=== PATIENT | female | born 1955 | race Hispanic/Latino ===

== ENCOUNTER 2017-01-18 16:11 | Emergency (ER) | payer OTHER ==
[2017-01-18 16:11] VITALS: BMI 19.5
[2017-01-18 16:31] VITALS: BP 119/77; PULSE 94; RESP 18; TEMP 98; O2SAT 98
--- NOTE | 2017-01-18 17:38 | ED PDOC ---
HPI: Abdomen Time Seen by Provider: 01/18/17 16:38 Chief Complaint (Nursing): Abdominal Pain Chief Complaint (Provider): Abdominal Pain History Per: Patient History/Exam Limitations: no limitations Additional Complaint(s): Angelita Fernandes is a 61 y/o female with a past medical history of colon cancer, anxiety, and smoking, who presents to the ED for evaluation to check a portacath on the right side of her chest to get chemotherapy for colon cancer. Patient reports her last infusion was yesterday. States she feels part of her catheter is missing when she looks to her neck area. Patient also states a chief complaint of a gassy pain due to constipation and attributes the increase in gas to changing from her gas-x and pepcid to another over the counter medication. Denies any associated symptoms including trauma, sudden pain or shortness of breath. No nausea or vomiting. Past Medical History Reviewed: Historical Data, Nursing Documentation, Vital Signs Vital Signs: Last Vital Signs Temp 98 F 01/18/17 16:27 Pulse 94 H 01/18/17 16:27 Resp 18 01/18/17 16:27 BP 119/77 01/18/17 16:27 Pulse Ox 98 01/18/17 18:04 - Medical History PMH: Anxiety, Asthma, Bronchitis, COPD, Emphysema, Hiatal Hernia, Hypothyroidism Denies: Chronic Kidney Disease - Surgical History Surgical History: No Surg Hx - Family History Family History: States: Stroke (Father - 60 yo) - Social History Current smoker - smoking cessation education provided: Yes Ex-Smoker (has not smoked in the last 12 months): No - Home Medications Home Medications: Ambulatory Orders Medication Instructions Recorded Albuterol HFA [Ventolin HFA 90 1 puff IH Q4 PRN #1 unit 02/28/15 mcg/actuation (8 g)] ALPRAZolam [Xanax] 2 mg PO DAILY 04/13/15 Levothyroxine [Synthroid] 88 mcg PO DAILY 04/13/15 Propranolol [Inderal] 10 mg PO DAILY 04/13/15 Nebulizer [Aeroneb Go Nebulizer] 1 each MC Q4 PRN #1 each 03/20/16 Maprotiline HCl [Maprotiline HCl] 25 mg PO DAILY 08/28/16 Acetaminophen [Tylenol 325mg tab] 325 mg PO BID 09/25/16 Famotidine [Pepcid] 20 mg PO DAILY PRN 09/25/16 - Allergies Allergies/Adverse Reactions: Allergies Allergy/AdvReac Type Severity Reaction Status Date / Time Sulfa (Sulfonamide Allergy RASH Verified 01/18/17 16:27 Antibiotics) Review of Systems ROS Statement: Except As Marked, All Systems Reviewed And Found Negative Respiratory: Negative for: Shortness of Breath Gastrointestinal: Positive for: Abdominal Pain, Constipation (Gassy pain due to constipation) Physical Exam - Reviewed Nursing Documentation Reviewed: Yes Vital Signs Reviewed: Yes - Physical Exam Appears: Positive for: Well, Non-toxic, No Acute Distress Head Exam: Positive for: ATRAUMATIC, NORMAL INSPECTION, NORMOCEPHALIC Skin: Positive for: Normal Color, Warm, Dry Eye Exam: Positive for: Normal appearance, EOMI, PERRL ENT: Positive for: Normal ENT Inspection, Other (Dry mucous membranes) Neck: Positive for: Normal, Painless ROM, Supple Cardiovascular/Chest: Positive for: Regular Rate, Rhythm, Chest Non Tender, Other (Portacath on the right chest wall below the right clavicle with palpable catheter tracking deep into the subclavicular area.). Negative for: Murmur, Tachycardia Respiratory: Positive for: Normal Breath Sounds. Negative for: Wheezing, Respiratory Distress Gastrointestinal/Abdominal: Positive for: Normal Exam, Soft. Negative for: Tenderness, Guarding, Rebound Back: Positive for: Normal Inspection Rectal: Positive for: Deferred Extremity: Positive for: Normal ROM Lymphatic: Positive for: Deferred Neurologic/Psych: Positive for: Alert, Oriented, Other (Tired appearing) - ECG O2 Sat by Pulse Oximetry: 98 (RA) Pulse Ox Interpretation: Normal Medical Decision Making Medical Decision Making: Time : 1638: Initial Impression: Portacath in place; Constipation Initial Plan: * Chest one view RAD Stat * KUB (Abdomen (flat plate) I view RAD Stat * Neck soft tissue RAD Stat * Re-Eval * Pt refused to have chest and abdominal xray. Informed that we are unable to see the catheter going into the heart, but that the neck xray show it is going in the right direction. Pt comfortable with this workup and eager to go home. Scribe Attestation: Documented by Zach Smith acting as a scribe for Pina Zimmerman MD. Provider Scribe Attestation: All medical record entries made by the Dannyibe were at my direction and personally dictated by me. I have reviewed the chart and agree that the record accurately reflects my personal performance of the history, physical exam, medical decision making, and the department course for this patient. I have also personally directed, reviewed, and agree with the discharge instructions and disposition. Disposition - Clinical Impression Clinical Impression: Constipation, Port-a-cath in place - Disposition Referrals: [facility] [Outside] - 01/21/17 Disposition: Routine/Home Disposition Time: 18:00 Condition: STABLE Additional Instructions: CONTINUE ALL YOUR PRESCRIBED MEDICATIONS USUAL GO BACK TO USING GAS X AND PEPCID FOR GAS FOLLOW UP WITH CLINIC SCHEDULED Instructions: Constipation (ED), Perma-cath Placement (GEN)
--- NOTE | 2017-01-18 18:49 | RAD ---
Neck soft tissue radiographs Comparison: Chest x-ray performed 03/28/16 Indication: Check wenceslao cath Findings: Incomplete visualization of a right-sided IJ approach central venous catheter. Soft tissues appear unremarkable. Evidence of atherosclerotic calcification involving the included aortic knob. Osseous demineralization. Multilevel degenerative changes of the cervical spine. Straightening of the normal cervical lordosis may be related to muscle spasm or positioning. Impression: Incomplete visualization of right-sided IJ approach central venous catheter. Recommend chest x-ray for further evaluation if indicated. Additional findings as above. Case discussed with Dr. Zimmerman on 01/18/17 at 6:46 p.m..
== END 2017-01-18 19:05 | disposition home or self-care (01) ==
LOC: H.ER 16:11
DX: Z45.2 Encounter for adjustment and management of vascular access device (principal); C18.9 Malignant neoplasm of colon, unspecified

== ENCOUNTER 2017-03-15 12:32 | Emergency (ER) | payer OTHER, SELFPAY ==
[2017-03-15 12:33] VITALS: BMI 18.8
[2017-03-15 12:41] VITALS: PULSE 71; RESP 17; TEMP 97.7; O2SAT 100
--- NOTE | 2017-03-15 13:15 | ED PDOC ---
HPI: CCC, URI, Sore Throat Time Seen by Provider: 03/15/17 12:42 Chief Complaint (Nursing): ENT Problem Chief Complaint (Provider): Sore throat History Per: Patient History/Exam Limitations: no limitations, clinical condition Onset/Duration Of Symptoms: Days Current Symptoms Are (Timing): Still Present Location Of Pain: Throat Sick Contacts (Context): None Associated Symptoms: Sore Throat. denies: Fever, Chills Additional History Per: Patient Additional Complaint(s): The patient is a 61yo female, hx of cancer, presents to the ED for evaluation of sore throat present for he past couple days. Patient reports she took Tylenol for her pain with no relief. She denies any associated cough, congestion or fever. She currently offers no additional medical complaints. Pt reports that she was at [facility] lab today for her routine bloodwork needed before her next chemo treatment. Pt was advised by RN to go to ER for sore throat eval. Pt see's our clinic; however, was unable to get an appointment for today. Oncologist: Dr. Wright PCP: [facility] Past Medical History Reviewed: Historical Data, Nursing Documentation, Vital Signs Vital Signs: Last Vital Signs Temp 97.7 F 03/15/17 12:38 Pulse 71 03/15/17 12:38 Resp 17 03/15/17 12:38 BP 127/95 H 03/15/17 12:38 Pulse Ox 100 03/15/17 13:17 - Medical History PMH: Anxiety, Asthma, Bronchitis, COPD, Emphysema, Hiatal Hernia, Hypothyroidism , Malignancy Denies: Chronic Kidney Disease - Family History Family History: States: Stroke (Father - 60 yo) - Social History Current smoker - smoking cessation education provided: Yes SMOKER/PACKS PER DAY:: 1 - Home Medications Home Medications: Ambulatory Orders Medication Instructions Recorded Albuterol HFA [Ventolin HFA 90 1 puff IH Q4 PRN #1 unit 02/28/15 mcg/actuation (8 g)] ALPRAZolam [Xanax] 2 mg PO DAILY 04/13/15 Levothyroxine [Synthroid] 88 mcg PO DAILY 04/13/15 Propranolol [Inderal] 10 mg PO DAILY 04/13/15 Nebulizer [Aeroneb Go Nebulizer] 1 each MC Q4 PRN #1 each 03/20/16 Maprotiline HCl [Maprotiline HCl] 25 mg PO DAILY 08/28/16 Acetaminophen [Tylenol 325mg tab] 325 mg PO BID 09/25/16 Famotidine [Pepcid] 20 mg PO DAILY PRN 09/25/16 Guaifenesin/Pseudoephedrne HCl 1 tab PO DAILY PRN #30 ter 03/15/17 [Mucinex D 600 mg-60 mg] - Allergies Allergies/Adverse Reactions: Allergies Allergy/AdvReac Type Severity Reaction Status Date / Time Sulfa (Sulfonamide Allergy RASH Verified 03/15/17 12:38 Antibiotics) Review of Systems ROS Statement: Except As Marked, All Systems Reviewed And Found Negative Constitutional: Negative for: Fever, Chills ENT: Positive for: Throat Pain Physical Exam - Reviewed Nursing Documentation Reviewed: Yes Vital Signs Reviewed: Yes - Physical Exam Appears: Positive for: Well, Non-toxic, No Acute Distress Head Exam: Positive for: ATRAUMATIC, NORMAL INSPECTION, NORMOCEPHALIC Skin: Positive for: Normal Color, Warm, DRY Eye Exam: Positive for: EOMI, Normal appearance, PERRL ENT: Positive for: TM Is/Are (nroam), Tonsillar Swelling Cardiovascular/Chest: Positive for: Regular Rate, Rhythm Respiratory: Positive for: Normal Breath Sounds. Negative for: Respiratory Distress Neurologic/Psych: Positive for: Alert, Oriented - ECG O2 Sat by Pulse Oximetry: 100 (RA) Pulse Ox Interpretation: Normal Medical Decision Making Medical Decision Making: Time: 1242 Impression: Sore throat, r/o strep Plan: -- Rapid strep -- Patient denies pain medication -- Reassess labs reviewed from draw earlier today at [facility] WBC 5.9, WNL Scribe Attestation: Documented by Florida Mccollum acting as a scribe for JORGITO Aaron Provider Attestation: All medical record entries made by the Scribe were at my direction and personally dictated by me. I have reviewed the chart and agree that the record accurately reflects my personal performance of the history, physical exam, medical decision making, and the department course for this patient. I have also personally directed, reviewed, and agree with the discharge instructions and disposition. Disposition - Clinical Impression Clinical Impression: Pharyngitis - Patient ED Disposition Is Patient to be Admitted: No - Disposition Disposition: Routine/Home Disposition Time: 13:44 Condition: STABLE Prescriptions: Guaifenesin/Pseudoephedrne HCl [Mucinex D 600 mg-60 mg] 1 tab PO DAILY PRN #30 ter PRN Reason: congestion Instructions: Pharyngitis (ED) Forms: [employer] (Lao)
[2017-03-15 13:49] VITALS: BP 123/87
== END 2017-03-15 13:48 | disposition home or self-care (01) ==
LOC: H.ER 12:32
DX: J02.9 Acute pharyngitis, unspecified (principal); E03.9 Hypothyroidism, unspecified; F41.9 Anxiety disorder, unspecified

== ENCOUNTER 2017-03-25 14:37 | Emergency (ER) | payer OTHER, SELFPAY ==
[2017-03-25 14:37] VITALS: BMI 18.8
[2017-03-25 15:54] LABS: BASO % 0.7 % (0.0-2.0); EOS # 0.1 K/uL (0.0-0.7); EOS % 2.5 % (0.0-4.0); HEMOGLOBIN 10.6 g/dL (12.0-16.0); MEAN CELL VOLUME 91.9 fl (81.0-99.0); MEAN CORPUSCULAR HEMOGLOBIN 29.9 pg (27.0-31.0); MEAN CORPUSCULAR HGB CONC 32.6 g/dL (33.0-37.0); MEAN PLATELET VOLUME 7.7 fl (7.2-11.7); MONO # 0.3 K/uL (0.0-0.8); MONO % 7.3 % (0.0-10.0); NEUT # 1.5 K/uL (1.8-7.0); NEUT % 38.5 % (50.0-75.0); NRBC % 0.3 % (0.0-0.0); RBC 3.55 Mil/uL (3.80-5.20); RED CELL DISTRIBUTION WIDTH 22.8 % (11.5-14.5); WHITE BLOOD COUNT 3.8 K/uL (4.8-10.8)
--- NOTE | 2017-03-25 16:04 | ED PDOC ---
HPI: Headache Time Seen by Provider: 03/25/17 15:10 Chief Complaint (Nursing): Headache History Per: Patient History/Exam Limitations: no limitations Onset/Duration Of Symptoms: Gradual (1 week) Current Symptoms Are (Timing): Still Present Severity: Mild Quality: Dull Preceeding Symptoms: None Associated Symptoms: denies: Photophobia, Blurred Vision, Nausea, Vomiting, Extremity Weakness Additional History Per: Patient Additional Complaint(s): Pt. complains of "intermittent right sided headache x 1 week and blood pressure has been going high, normally its low. pt. on chemotherapy for Colon Cancer. ptoncology Dr brito and seen in [facility] clinic, no head trauma no n/t/w, worse today. Past Medical History Reviewed: Historical Data, Nursing Documentation, Vital Signs Vital Signs: Last Vital Signs Temp 97.6 F 03/25/17 14:44 Pulse 61 03/25/17 15:27 Resp 17 03/25/17 15:27 BP 162/96 H 03/25/17 15:27 Pulse Ox 99 03/25/17 15:27 - Medical History PMH: Anxiety, Asthma, Bronchitis, COPD, Emphysema, Hiatal Hernia, Hypothyroidism , Malignancy Denies: Chronic Kidney Disease - Family History Family History: States: Stroke (Father - 60 yo) - Living Arrangements Living Arrangements: With Family - Social History Current smoker - smoking cessation education provided: Yes - Home Medications Home Medications: Ambulatory Orders Medication Instructions Recorded Albuterol HFA [Ventolin HFA 90 1 puff IH Q4 PRN #1 unit 02/28/15 mcg/actuation (8 g)] ALPRAZolam [Xanax] 2 mg PO DAILY 04/13/15 Levothyroxine [Synthroid] 88 mcg PO DAILY 04/13/15 Propranolol [Inderal] 10 mg PO DAILY 04/13/15 Nebulizer [Aeroneb Go Nebulizer] 1 each MC Q4 PRN #1 each 03/20/16 Maprotiline HCl [Maprotiline HCl] 25 mg PO DAILY 08/28/16 Acetaminophen [Tylenol 325mg tab] 325 mg PO BID 09/25/16 Famotidine [Pepcid] 20 mg PO DAILY PRN 09/25/16 Guaifenesin/Pseudoephedrne HCl 1 tab PO DAILY PRN #30 ter 03/15/17 [Mucinex D 600 mg-60 mg] - Allergies Allergies/Adverse Reactions: Allergies Allergy/AdvReac Type Severity Reaction Status Date / Time Sulfa (Sulfonamide Allergy RASH Verified 03/15/17 12:38 Antibiotics) Review of Systems ROS Statement: Except As Marked, All Systems Reviewed And Found Negative Constitutional: Negative for: Fever, Chills Cardiovascular: Negative for: Chest Pain, Palpitations, Edema Respiratory: Negative for: Cough, Shortness of Breath Gastrointestinal: Negative for: Nausea, Vomiting, Abdominal Pain Musculoskeletal: Negative for: Neck Pain Neurological: Positive for: Headache. Negative for: Weakness, Numbness, Incoordination, Change in Speech, Confusion, Seizures, Altered Mental Status Physical Exam - Reviewed Nursing Documentation Reviewed: Yes Vital Signs Reviewed: Yes - Physical Exam Appears: Positive for: Well, Uncomfortable Head Exam: Positive for: ATRAUMATIC, NORMAL INSPECTION, NORMOCEPHALIC Eye Exam: Positive for: Normal appearance, EOMI, PERRL Neck: Positive for: Normal, Painless ROM, Supple Cardiovascular/Chest: Positive for: Regular Rate, Rhythm, Chest Non Tender. Negative for: Edema, Gallop Respiratory: Positive for: Normal Breath Sounds. Negative for: Decreased Breath Sounds, Accessory Muscle Use, Crackles, Rales, Rhonchi, Stridor, Wheezing Pulses-Radial (L): 2+ Pulses-Radial (R): 2+ Gastrointestinal/Abdominal: Positive for: Normal Exam, Bowel Sounds, Soft. Negative for: Tenderness Back: Positive for: Normal Inspection. Negative for: L CVA Tenderness, R CVA Tenderness Extremity: Positive for: Normal ROM. Negative for: Tenderness, Pedal Edema, Calf Tenderness, Capillary Refill, Deformity, Swelling Neurologic/Psych: Positive for: Alert, iron caster II-XII, Oriented, Mood/Affect (caln) , Cerebellar Tests (nml), Gait (steady). Negative for: Motor/Sensory Deficits, Aphasia, Facial Droop - Laboratory Results Result Diagrams: 03/25/17 15:40 03/25/17 15:40 - ECG ECG: Positive for: Interpreted By Me ECG Rhythm: Positive for: Normal QRS, Normal ST Segment, Sinus Rhythm (69), ST/ T Changes (flatening in v4 through v6 ) O2 Sat by Pulse Oximetry: 99 Pulse Ox Interpretation: Normal - Progress ED Course And Treament: discussed with dr brito, pt will f/u with pmd for recheck on bp. pt states mild lema. pt state shad mri in the past that reveals a krys cyst. advise percocet for pain and close f/u with pmd. pt leaves ambulatory and in good spirits. Re-evaluation Time: 17:00 Condition: Improved Medical Decision Making Medical Decision Making: repeat bp unchanged Disposition - Clinical Impression Clinical Impression: Acute headache, Hypertension - Patient ED Disposition Is Patient to be Admitted: No Counseled Patient/Family Regarding: Studies Performed, Diagnosis, Need For Followup - Disposition Referrals: [facility] [Outside] (1 to 2 days) Disposition: Routine/Home Disposition Time: 17:13 Condition: GOOD Additional Instructions: Follow up with Dr brito in 1 to 2 days for repeat bp check Instructions: Acute Headache (ED), Hypertension (ED) Forms: [employer] (Pashto)
[2017-03-25 16:06] LABS: ALB/GLOB RATIO 1.3 (1.0-2.1); ALBUMIN 3.9 g/dL (3.5-5.0); ALT/SGPT 41 U/L (9-52); AST/SGOT 32 U/L (14-36); BLOOD UREA NITROGEN 21 mg/dl (7-17); CALCIUM 8.8 mg/dL (8.4-10.2); GFR AFRICAN-AMERICAN > 60; GFR NON-AFRICAN AMERICAN > 60
--- NOTE | 2017-03-25 16:27 | CT ---
PROCEDURE: CT HEAD WITHOUT CONTRAST. HISTORY: headache h/o of ca COMPARISON: Comparison is made to the previous study dated 10/10/2014 TECHNIQUE: Axial computed tomography images were obtained through the head/brain without intravenous contrast. Radiation dose: Total exam DLP = 851.03 mGy-cm. This CT exam was performed using one or more of the following dose reduction techniques: Automated exposure control, adjustment of the mA and/or kV according to patient size, and/or use of iterative reconstruction technique. FINDINGS: HEMORRHAGE: No intracranial hemorrhage. BRAIN: No mass effect or edema. Mild to moderate atrophy is again noted. VENTRICLES: Unremarkable. No hydrocephalus. CALVARIUM: Unremarkable. PARANASAL SINUSES: Unremarkable as visualized. No significant inflammatory changes. MASTOID AIR CELLS: Unremarkable as visualized. No inflammatory changes. OTHER FINDINGS: None. IMPRESSION: No evidence of acute intracranial hemorrhage mass effect or midline shift. No evidence of significant interval change since the previous exam. [id number] atrophy.
[2017-03-25 17:33] VITALS: BP 132/74; PULSE 84; RESP 19; TEMP 98; O2SAT 100
[2017-03-25 18:51] LABS: PROTHROMBIN TIME 10.8 Seconds (9.8-13.1)
[2017-03-25 18:52] LABS: INR 1.1 (0.9-1.2)
--- NOTE | 2017-03-26 10:33 | CARD ---
APPROVED REPORT EKG Measurement Heart [id number] <Conclusion> Normal sinus rhythm Inferior infarct, age undetermined Abnormal ECG
== END 2017-03-25 17:37 | disposition home or self-care (01) ==
LOC: H.ER 14:37
DX: I10 Essential (primary) hypertension (principal); R51 Headache; E03.9 Hypothyroidism, unspecified

== ENCOUNTER 2017-04-18 11:02 | Emergency (ER) | payer OTHER ==
[2017-04-18 11:10] VITALS: BP 134/93; PULSE 89; RESP 16; TEMP 97.6; O2SAT 98
[2017-04-18 11:11] VITALS: BMI 18.8
--- NOTE | 2017-04-18 12:08 | ED PDOC ---
HPI: General Adult Time Seen by Provider: 04/18/17 11:31 Chief Complaint (Nursing): GI Problem History Per: Patient Additional Complaint(s): Pt. states for the past 2 weeks she's had constipation. States that she's had small BMs but still feels "backed up." Reports a hx of colon CA and is currently undergoing chemotherapy under the care of Dr. Wright. Pt. states that she's had constipation issues >[address] before she was diagnosed with CA. Reports pain is only present when she is straining. Denies melena, hematochezia , BRBPR, fever, abdominal pain, vomiting, fever, nausea. Past Medical History Reviewed: Historical Data, Nursing Documentation, Vital Signs Vital Signs: Last Vital Signs Temp 97.6 F 04/18/17 11:09 Pulse 89 04/18/17 11:09 Resp 16 04/18/17 11:09 BP 134/93 H 04/18/17 11:09 Pulse Ox 98 04/18/17 12:10 - Medical History PMH: Anxiety, Asthma, Bronchitis, COPD, Emphysema, Hiatal Hernia, Hypothyroidism , Malignancy Denies: Chronic Kidney Disease - Family History Family History: States: Stroke (Father - 60 yo) - Home Medications Home Medications: Ambulatory Orders Medication Instructions Recorded Albuterol HFA [Ventolin HFA 90 1 puff IH Q4 PRN #1 unit 02/28/15 mcg/actuation (8 g)] ALPRAZolam [Xanax] 2 mg PO DAILY 04/13/15 Levothyroxine [Synthroid] 88 mcg PO DAILY 04/13/15 Propranolol [Inderal] 10 mg PO DAILY 04/13/15 Nebulizer [Aeroneb Go Nebulizer] 1 each MC Q4 PRN #1 each 03/20/16 Maprotiline HCl [Maprotiline HCl] 25 mg PO DAILY 08/28/16 Acetaminophen [Tylenol 325mg tab] 325 mg PO BID 09/25/16 Famotidine [Pepcid] 20 mg PO DAILY PRN 09/25/16 Guaifenesin/Pseudoephedrne HCl 1 tab PO DAILY PRN #30 ter 03/15/17 [Mucinex D 600 mg-60 mg] Polyethylene Glycol 3350 [Miralax] 17 gm PO DAILY PRN #30 packet 04/18/17 Sod Phos,M-B/Na Phos,Di-Ba [Fleet 1 each RC DAILY PRN #1 enema 04/18/17 Enema] - Allergies Allergies/Adverse Reactions: Allergies Allergy/AdvReac Type Severity Reaction Status Date / Time Sulfa (Sulfonamide Allergy RASH Verified 04/18/17 11:20 Antibiotics) Review of Systems ROS Statement: Except As Marked, All Systems Reviewed And Found Negative Gastrointestinal: Positive for: Constipation Physical Exam - Physical Exam Appears: Positive for: Well, Non-toxic, No Acute Distress Skin: Positive for: Normal Color, Warm. Negative for: Rash Eye Exam: Positive for: Normal appearance Cardiovascular/Chest: Positive for: Regular Rate, Rhythm Respiratory: Positive for: CNT, Normal Breath Sounds Gastrointestinal/Abdominal: Positive for: Normal Exam, Bowel Sounds, Soft. Negative for: Tenderness, Mass, Distended Back: Positive for: Normal Inspection Extremity: Positive for: Normal ROM Neurologic/Psych: Positive for: Alert, Oriented - ECG O2 Sat by Pulse Oximetry: 98 - Progress ED Course And Treament: Case d/w Dr. Wright, pt.'s oncologist, who reviewed pt.'s last CBC (WBC: 6.3; neutro: 68.3) and states pt. can be given fleet enema. Obstructive series ordered. Pt. seen eating in ED without difficulty. Fleet enema given in ED. Disposition - Clinical Impression Clinical Impression: Constipation - Patient ED Disposition Is Patient to be Admitted: No - Disposition Referrals: Luis Wright MD [Staff Provider] - Disposition: Routine/Home Disposition Time: 12:52 Condition: STABLE Prescriptions: Polyethylene Glycol 3350 [Miralax] 17 gm PO DAILY PRN #30 packet PRN Reason: Constipation Sod Phos,M-B/Na Phos,Di-Ba [Fleet Enema] 1 each RC DAILY PRN #1 enema PRN Reason: Constipation Instructions: Constipation (ED), High Fiber Diet (ED) Forms: [employer] (Japanese)
--- NOTE | 2017-04-18 14:02 | RAD ---
PROCEDURE: Radiographs of the chest and abdomen (obstructive series) HISTORY: constipation COMPARISON: Abdomen obstructive series 9215. TECHNIQUE: AP radiograph of the chest, with upright and supine radiographs of the abdomen. FINDINGS: CHEST: There has been interval insertion of a right-sided life port catheter and apparent right internal jugular approach with the tips are in the distal superior cava. Lungs: Clear. Cardiovascular: Normal size heart. No pulmonary vascular congestion. Pleura: No pleural fluid. No pneumothorax. Other findings: None. ABDOMEN AND PELVIS: Bowel: Unremarkable bowel gas pattern. No evidence of mechanical obstruction. Free air: None. Bones: Unremarkable. Other findings: No abnormal intra-abdominal calcifications. IMPRESSION: Unremarkable radiographs of the chest and abdomen. No evidence of mechanical bowel obstruction. Interval right life port catheter placed in the right chest. No acute right cardiopulmonary findings.
== END 2017-04-18 13:20 | disposition home or self-care (01) ==
LOC: H.ER 11:02
DX: K59.00 Constipation, unspecified (principal); E03.9 Hypothyroidism, unspecified; F41.9 Anxiety disorder, unspecified; Z85.038 Personal history of other malignant neoplasm of large intestine

== ENCOUNTER 2017-04-20 11:46 | Emergency (ER) | payer OTHER, SELFPAY ==
[2017-04-20 11:47] VITALS: BMI 18.8
[2017-04-20 11:50] VITALS: BP 156/97
[2017-04-20 12:05] VITALS: PULSE 54; RESP 19; TEMP 98; O2SAT 99
--- NOTE | 2017-04-20 12:29 | ED PDOC ---
HPI: Abdomen Time Seen by Provider: 04/20/17 11:56 Chief Complaint (Nursing): Abdominal Pain Chief Complaint (Provider): Constipation History Per: Patient History/Exam Limitations: no limitations Onset/Duration Of Symptoms: Days (x 3) Current Symptoms Are (Timing): Still Present Additional Complaint(s): Angelita is a 61 y/o female who presents to the ED complaining of constipation. States no bowel movement for 3 days. Denies abdominal pain or vomiting. Patient has a history of colon cancer, currently on chemo. PMD: Luis Wright Past Medical History Reviewed: Historical Data, Nursing Documentation, Vital Signs Vital Signs: Last Vital Signs Temp 98.0 F 04/20/17 12:02 Pulse 54 L 04/20/17 12:02 Resp 19 04/20/17 12:02 BP 156/97 H 04/20/17 12:02 Pulse Ox 99 04/20/17 12:47 - Medical History PMH: Anxiety, Asthma, Bronchitis, COPD, Emphysema, Hiatal Hernia, Hypothyroidism , Malignancy (colon cancer) Denies: Chronic Kidney Disease - Family History Family History: States: Stroke (Father - 60 yo) - Home Medications Home Medications: Ambulatory Orders Medication Instructions Recorded Albuterol HFA [Ventolin HFA 90 1 puff IH Q4 PRN #1 unit 02/28/15 mcg/actuation (8 g)] ALPRAZolam [Xanax] 2 mg PO DAILY 04/13/15 Levothyroxine [Synthroid] 88 mcg PO DAILY 04/13/15 Propranolol [Inderal] 10 mg PO DAILY 04/13/15 Nebulizer [Aeroneb Go Nebulizer] 1 each MC Q4 PRN #1 each 03/20/16 Maprotiline HCl [Maprotiline HCl] 25 mg PO DAILY 08/28/16 Acetaminophen [Tylenol 325mg tab] 325 mg PO BID 09/25/16 Famotidine [Pepcid] 20 mg PO DAILY PRN 09/25/16 Guaifenesin/Pseudoephedrne HCl 1 tab PO DAILY PRN #30 ter 03/15/17 [Mucinex D 600 mg-60 mg] Polyethylene Glycol 3350 [Miralax] 17 gm PO DAILY PRN #30 packet 04/18/17 Sod Phos,M-B/Na Phos,Di-Ba [Fleet 1 each RC DAILY PRN #1 enema 04/18/17 Enema] - Allergies Allergies/Adverse Reactions: Allergies Allergy/AdvReac Type Severity Reaction Status Date / Time Sulfa (Sulfonamide Allergy RASH Verified 04/18/17 11:20 Antibiotics) Review of Systems Gastrointestinal: Positive for: Constipation. Negative for: Vomiting, Abdominal Pain Physical Exam - Reviewed Nursing Documentation Reviewed: Yes Vital Signs Reviewed: Yes - Physical Exam Appears: Positive for: Non-toxic, No Acute Distress Head Exam: Positive for: ATRAUMATIC, NORMAL INSPECTION, NORMOCEPHALIC Skin: Positive for: Normal Color, Warm, Dry Eye Exam: Positive for: EOMI, Normal appearance, PERRL Neck: Positive for: Normal, Painless ROM, Supple Cardiovascular/Chest: Positive for: Regular Rate, Rhythm. Negative for: Murmur Respiratory: Positive for: Normal Breath Sounds. Negative for: Respiratory Distress Gastrointestinal/Abdominal: Positive for: Normal Exam, Soft. Negative for: Tenderness, Distended Back: Positive for: Normal Inspection Extremity: Positive for: Normal ROM. Negative for: Pedal Edema, Deformity Neurologic/Psych: Positive for: Alert, Oriented. Negative for: Motor/Sensory Deficits - ECG O2 Sat by Pulse Oximetry: 99 (RA) Pulse Ox Interpretation: Normal Medical Decision Making Medical Decision Making: Time: 12:16 Initial Plan: --Patient declines rectal exam as well as evaluation including CT abdomen to r/ o obstruction or new lesion --Ordered enema (water and soap) x 1 --Requesting enema Scribe Attestation: Documented by Dulce Escalera, acting as a scribe for Trey Dickerson MD Provider Scribe Attestation: All medical record entries made by the Scribe were at my direction and personally dictated by me. I have reviewed the chart and agree that the record accurately reflects my personal performance of the history, physical exam, medical decision making, and the department course for this patient. I have also personally directed, reviewed, and agree with the discharge instructions and disposition. Disposition - Clinical Impression Clinical Impression: Constipation - Patient ED Disposition Is Patient to be Admitted: No Counseled Patient/Family Regarding: Diagnosis, Need For Followup - Disposition Referrals: Alex Jarrett MD [Staff Provider] - Disposition: Routine/Home Disposition Time: 13:46 Condition: FAIR Instructions: Constipation (ED) Forms: [employer] (Micronesian)
== END 2017-04-20 13:50 | disposition home or self-care (01) ==
LOC: H.ER 11:46
DX: K59.00 Constipation, unspecified (principal); E03.9 Hypothyroidism, unspecified; F41.9 Anxiety disorder, unspecified; Z85.038 Personal history of other malignant neoplasm of large intestine

== ENCOUNTER 2017-09-09 10:18 | Emergency (ER) | payer OTHER ==
[2017-09-09 10:19] VITALS: BMI 19.2
[2017-09-09 10:26] VITALS: TEMP 97.7; O2SAT 100
[2017-09-09 11:51] LABS: BASO # 0.1 K/uL (0.0-0.2); BASO % 1.1 % (0.0-2.0); EOS # 0.1 K/uL (0.0-0.7); EOS % 1.9 % (0.0-4.0); HEMOGLOBIN 13.2 g/dL (12.0-16.0); LYMPH # 1.6 K/uL (1.0-4.3); LYMPH % 33.5 % (20.0-40.0); MEAN CELL VOLUME 98.9 fl (81.0-99.0); MEAN CORPUSCULAR HEMOGLOBIN 33.6 pg (27.0-31.0); MEAN PLATELET VOLUME 7.9 fl (7.2-11.7); MONO # 0.5 K/uL (0.0-0.8); MONO % 11.2 % (0.0-10.0); NEUT # 2.5 K/uL (1.8-7.0); NEUT % 52.3 % (50.0-75.0); NRBC % 0.1 % (0.0-0.0); RBC 3.94 Mil/uL (3.80-5.20); RED CELL DISTRIBUTION WIDTH 14.5 % (11.5-14.5); WHITE BLOOD COUNT 4.8 K/uL (4.8-10.8)
[2017-09-09 12:03] LABS: BLOOD UREA NITROGEN 9 mg/dl (7-17); CALCIUM 9.4 mg/dL (8.4-10.2); GFR AFRICAN-AMERICAN > 60; GFR NON-AFRICAN AMERICAN > 60
--- NOTE | 2017-09-09 12:07 | ED PDOC ---
HPI: Skin/Bite Injury Chief Complaint (Provider): "i have a new rash" History Per: Patient, Family History/Exam Limitations: no limitations Onset/Duration Of Symptoms: Hrs Current Symptoms Are (Timing): Still Present Quality Of Symptoms: Itching Severity: Mild <Mark Alvarado - Last Filed: 09/09/17 13:28> <Ivanna Ashby - Last Filed: 09/09/17 14:12> Time Seen by Provider: 09/09/17 11:02 Chief Complaint (Nursing): Abnormal Skin Integrity Additional Complaint(s): 61 y/o female, history of HTN, hypothyroid, and colon CA on chemo, presents complaining of new onset rash. pt reports feeling itchy behind the ear last night, but thought nothing of it and went to bed. She woke up this morning with a new reddish itchy rash that was located on her upper chest/breasts as well as her shoulders and forearms. The lesions are erythematous, pruritic, and constant. No edema or discharge associated with the lesions. The lesion are flat. They seem to be traveling from cephalidad to caudad. This is her first episode. Last chemo was approx 2.5 weeks ago. Denies any new clothing, sheets, soaps, detergents, pet exposure. She uses lukewarm water to bath 2/2 to her neuropathy. Denies taking any new medications or supplements. She denies any associated symptoms, such as fever/chills, CP/SOB/palpitations, N/V/D/C, urinary symptoms, new onset numbness/tingling. PMD: Sandu Hem/onc: [place] [place] ALL: sulfa (unknown rxn) (Mark Alvarado) Supervising Attending Note - Supervising Attending Note The Documented history was done by the: Physician Machine Silver Stripper, Attending Physician The documented physical exam was done by the: Physician Machine Silver Stripper, Attending Physician The documented procedures were done by the: Physician Machine Silver Stripper, Attending Physician - Attestation: I have personally seen and examined this patient.: Yes I have fully participated in the care of the patient.: Yes I have reviewed all pertinent clinical information, including history, physical exam and plan: Yes <Ivanna Ashby - Last Filed: 09/09/17 14:12> Past Medical History Reviewed: Vital Signs - Medical History PMH: Anxiety, Asthma, Bronchitis, COPD, Emphysema, Hiatal Hernia, Hypothyroidism , Malignancy (colon cancer) Denies: Chronic Kidney Disease - Family History Family History: States: Stroke (Father - 60 yo) <ChrisjoshMark - Last Filed: 09/09/17 13:28> <Ivanna Ashby - Last Filed: 09/09/17 14:12> Vital Signs: Last Vital Signs Temp 97.7 F 09/09/17 10:24 Pulse 78 09/09/17 10:24 Resp 17 09/09/17 10:24 BP 172/85 H 09/09/17 10:24 Pulse Ox 100 09/09/17 13:33 - Home Medications Home Medications: Ambulatory Orders Medication Instructions Recorded Albuterol HFA [Ventolin HFA 90 1 puff IH Q4 PRN #1 unit 02/28/15 mcg/actuation (8 g)] ALPRAZolam [Xanax] 2 mg PO DAILY 04/13/15 Levothyroxine [Synthroid] 88 mcg PO DAILY 04/13/15 Propranolol [Inderal] 10 mg PO DAILY 04/13/15 Nebulizer [Aeroneb Go Nebulizer] 1 each MC Q4 PRN #1 each 03/20/16 Maprotiline HCl [Maprotiline HCl] 25 mg PO DAILY 08/28/16 Acetaminophen [Tylenol 325mg tab] 325 mg PO BID 09/25/16 Famotidine [Pepcid] 20 mg PO DAILY PRN 09/25/16 Guaifenesin/Pseudoephedrne HCl 1 tab PO DAILY PRN #30 ter 03/15/17 [Mucinex D 600 mg-60 mg] Polyethylene Glycol 3350 [Miralax] 17 gm PO DAILY PRN #30 packet 04/18/17 Sod Phos,M-B/Na Phos,Di-Ba [Fleet 1 each RC DAILY PRN #1 enema 04/18/17 Enema] predniSONE [predniSONE Tab] 60 mg PO DAILY #5 tab 09/09/17 - Allergies Allergies/Adverse Reactions: Allergies Allergy/AdvReac Type Severity Reaction Status Date / Time Sulfa (Sulfonamide Allergy RASH Verified 04/18/17 11:20 Antibiotics) Review of Systems ROS Statement: Except As Marked, All Systems Reviewed And Found Negative <Mark Alvarado - Last Filed: 09/09/17 13:28> Physical Exam - Reviewed Vital Signs Reviewed: Yes - Physical Exam Appears: Positive for: Non-toxic, No Acute Distress Skin: Positive for: Warm, Dry (dry skin diffusely ), Rash (erythemaous, blanching macular rash with discreate borders located at mastoids, deltoids, and anterior chest. No weeping, discharge, edema). Negative for: Mottled, Cyanosis Eye Exam: Positive for: EOMI, PERRL. Negative for: Conjunctival injection Neck: Positive for: Painless ROM, Supple Cardiovascular/Chest: Positive for: Regular Rate, Rhythm Respiratory: Positive for: Normal Breath Sounds Pulses-Radial (L): 2+ Pulses-Radial (R): 2+ Lymphatic: Negative for: Adenopathy Neurologic/Psych: Positive for: Alert, forming process worker II-XII, Oriented <Mark Alvarado - Last Filed: 09/09/17 13:28> - Laboratory Results Result Diagrams: 09/09/17 11:45 09/09/17 11:45 - ECG O2 Sat by Pulse Oximetry: 100 <Mark Alvarado - Last Filed: 09/09/17 13:28> - Laboratory Results Result Diagrams: 09/09/17 11:45 09/09/17 11:45 <Ivanna Ashby - Last Filed: 09/09/17 14:12> - Progress ED Course And Treament: likley morbilliform drug eruption CBC w diff BMP Prednisone 60mg PO Benadryl 25mg PO Pepcid 20mg PO rash improving, less pruritic. Pt feels more comfortable. (Mark Alvarado) Disposition - Patient ED Disposition Is Patient to be Admitted: No - Disposition Disposition: Routine/Home Disposition Time: 13:29 <Mark Alvarado - Last Filed: 09/09/17 13:28> <Ivanna Ashby A - Last Filed: 09/09/17 14:12> - Clinical Impression Clinical Impression: Allergic reaction caused by a drug - Disposition Referrals: Luis Wright MD [Staff Provider] - Glenn Beckwith DO [Family Provider] - Condition: IMPROVED Additional Instructions: take Prednisone as prescribed take Benadryl 25mg take pepcid 20mg daily follow up with Dr. Wright and discuss symptoms follow up with your primary medical doctor in 2-3 days any worsening of symptoms, come back for further evaluation Prescriptions: predniSONE [predniSONE Tab] 60 mg PO DAILY #5 tab Instructions: Urticaria (ED), Acute Rash (ED), Adverse Drug Reaction (ED) Forms: [employer] (Irish)
[2017-09-09 14:40] VITALS: BP 165/78; PULSE 85; RESP 14
== END 2017-09-09 13:50 | disposition home or self-care (01) ==
LOC: H.ER 10:18
DX: T78.40XA Allergy, unspecified, initial encounter (principal); E03.9 Hypothyroidism, unspecified; F41.9 Anxiety disorder, unspecified; I10 Essential (primary) hypertension; Z85.038 Personal history of other malignant neoplasm of large intestine; J44.9 Chronic obstructive pulmonary disease, unspecified

== ENCOUNTER 2017-10-06 12:52 | Emergency (ER) | payer OTHER ==
[2017-10-06 12:53] VITALS: BMI 19.2
[2017-10-06 12:59] VITALS: PULSE 75; RESP 19; TEMP 97; O2SAT 99
--- NOTE | 2017-10-06 13:37 | ED PDOC ---
Lower Extremity Pain/Injury Time Seen by Provider: 10/06/17 13:08 Chief Complaint (Nursing): Lower Extremity Problem/Injury Chief Complaint (Provider): Left Thigh Pain History Per: Patient History/Exam Limitations: no limitations Onset/Duration Of Symptoms: Days (x2) Current Symptoms Are (Timing): Still Present Additional Complaint(s): 61 year old female presents to the emergency department with left thigh pain x 2 days. Patient states she woke up yesterday with pain but reports no fall or trauma. She has a history of colon cancer for 14 months, and her last chemotherapy session was last week. She takes Heparin shots but is concerned about a possible blood clot to left leg which prompted this visit. She denies fever, chills, shortness of breath, and chest pain. No meds taken for pain relief. PMD: Luis Wright Past Medical History Reviewed: Historical Data, Nursing Documentation, Vital Signs Vital Signs: Last Vital Signs Temp 97.0 F L 10/06/17 12:56 Pulse 75 10/06/17 12:56 Resp 19 10/06/17 12:56 BP 175/91 H 10/06/17 12:56 Pulse Ox 99 10/06/17 12:56 - Medical History PMH: Anxiety, Asthma, COPD, Emphysema, Hiatal Hernia, Hypothyroidism, Malignancy (colon cancer) - Family History Family History: States: Stroke (Father - 60 yo) - Living Arrangements Living Arrangements: With Family - Social History Current smoker - smoking cessation education provided: Yes Alcohol: None Drugs: Denies - Home Medications Home Medications: Ambulatory Orders Medication Instructions Recorded Albuterol HFA [Ventolin HFA 90 1 puff IH Q4 PRN #1 unit 02/28/15 mcg/actuation (8 g)] ALPRAZolam [Xanax] 2 mg PO DAILY 04/13/15 Levothyroxine [Synthroid] 88 mcg PO DAILY 04/13/15 Propranolol [Inderal] 10 mg PO DAILY 04/13/15 Nebulizer [Aeroneb Go Nebulizer] 1 each MC Q4 PRN #1 each 03/20/16 Maprotiline HCl [Maprotiline HCl] 25 mg PO DAILY 08/28/16 Acetaminophen [Tylenol 325mg tab] 325 mg PO BID 09/25/16 Famotidine [Pepcid] 20 mg PO DAILY PRN 09/25/16 Guaifenesin/Pseudoephedrne HCl 1 tab PO DAILY PRN #30 ter 03/15/17 [Mucinex D 600 mg-60 mg] Polyethylene Glycol 3350 [Miralax] 17 gm PO DAILY PRN #30 packet 04/18/17 Sod Phos,M-B/Na Phos,Di-Ba [Fleet 1 each RC DAILY PRN #1 enema 04/18/17 Enema] predniSONE [predniSONE Tab] 60 mg PO DAILY #5 tab 09/09/17 - Allergies Allergies/Adverse Reactions: Allergies Allergy/AdvReac Type Severity Reaction Status Date / Time Sulfa (Sulfonamide Allergy RASH Verified 04/18/17 11:20 Antibiotics) Wells Criteria for PE - Wells Criteria for Pulmonary Embolism Clinical Signs and Symptoms of DVT: Yes P.E is #1 Diagnosis, or Equally Likely: No Heart Rate >100: No Immobilization at least 3 days;Surgery previous 4 weeks: No Previous, objectively diagnosed PE or DVT: No Hemoptysis: No Malignancy w/treatment within 6 months, or palliative: No Total Score: 3 Review of Systems ROS Statement: Except As Marked, All Systems Reviewed And Found Negative Constitutional: Negative for: Fever, Chills Cardiovascular: Negative for: Chest Pain Respiratory: Negative for: Shortness of Breath Musculoskeletal: Positive for: Leg Pain (left anterior thigh pain for 2 days, denies fall or trauma) Neurological: Negative for: Headache, Dizziness Physical Exam - Reviewed Nursing Documentation Reviewed: Yes Vital Signs Reviewed: Yes - Physical Exam Appears: Positive for: Well, Non-toxic, No Acute Distress Head Exam: Positive for: ATRAUMATIC, NORMAL INSPECTION, NORMOCEPHALIC Skin: Positive for: Normal Color, Warm. Negative for: Rash Eye Exam: Positive for: EOMI, Normal appearance, PERRL Cardiovascular/Chest: Positive for: Regular Rate, Rhythm Respiratory: Positive for: Normal Breath Sounds. Negative for: Respiratory Distress Gastrointestinal/Abdominal: Positive for: Normal Exam, Soft. Negative for: Tenderness Back: Positive for: Normal Inspection. Negative for: L CVA Tenderness, R CVA Tenderness Extremity: Positive for: Other (full rom left lower extremity, mild tenderness left anterior thigh with no erythema or ecchymosis). Negative for: Pedal Edema , Deformity, Swelling Neurologic/Psych: Positive for: Alert, Oriented, Gait (steady) - ECG O2 Sat by Pulse Oximetry: 99 (RA) Pulse Ox Interpretation: Normal - Other Rad Doppler left leg X-Ray: Read By Radiologist X-Ray Interpretation: no DVT Medical Decision Making Medical Decision Making: Time: 13:22 Impression: 61 year old female with left leg pain Initial Plan: --US of Lower Left extremity --Pain meds declined Patient made aware that ultrasound results are negative. all questions answered. Advised follow-up with PMD and tylenol PRN pain. Scribe Attestation: Documented by Sheila Andersen, acting as a scribe for Pina Wong PA-C Provider Scribe Attestation: All medical record entries made by the Scribe were at my direction and personally dictated by me. I have reviewed the chart and agree that the record accurately reflects my personal performance of the history, physical exam, medical decision making, and the department course for this patient. I have also personally directed, reviewed, and agree with the discharge instructions and disposition. Disposition - Clinical Impression Clinical Impression: Left thigh pain - Patient ED Disposition Is Patient to be Admitted: No Counseled Patient/Family Regarding: Studies Performed, Diagnosis, Need For Followup - Disposition Referrals: Luis Wright MD [Primary Care Provider] - Disposition: Routine/Home Disposition Time: 15:07 Condition: STABLE Additional Instructions: Tylenol for pain, follow-up with primary doctor. Instructions: Muscle and Bone Pain (DC) Forms: [employer] (Estonian)
[2017-10-06 15:19] VITALS: BP 150/85
[2017-10-06] MEDS ORDERED: DiphenhydrAMINE 50 mg/ml Inj ONE (17:14)
--- NOTE | 2017-10-08 08:44 | US ---
PROCEDURE: Left lower extremity venous duplex Doppler. HISTORY: Pain edema left lower extremity. COMPARISON: None available. TECHNIQUE: Common femoral, superficial femoral, popliteal and posterior tibial veins were evaluated. Flow was assessed with color Doppler, compressibility, assessment of phasic flow and augmentation response. FINDINGS: Good compressibility, augmentation, color grayscale morphology as well as normal phasic blood flows identified in the veins described below with no ultrasound evidence of deep venous appreciated. The posterior tibial vein appears patent. COMMON FEMORAL VEIN: Unremarkable. SUPERFICIAL FEMORAL VEIN: Unremarkable. POPLITEAL VEIN: Unremarkable. POSTERIOR TIBIAL VEIN: Unremarkable. OTHER FINDINGS: None. IMPRESSION: No evidence of deep venous thrombosis in the left ower extremity.
== END 2017-10-06 15:18 | disposition home or self-care (01) ==
LOC: SUPCPDRO 12:52 → H.ER 12:52
DX: M79.651 Pain in right thigh (principal); E03.9 Hypothyroidism, unspecified; F41.9 Anxiety disorder, unspecified; J44.9 Chronic obstructive pulmonary disease, unspecified; Z85.038 Personal history of other malignant neoplasm of large intestine

== ENCOUNTER 2017-11-18 11:53 | Emergency (ER) | payer OTHER ==
[2017-11-18 11:53] VITALS: BMI 19.7
[2017-11-18 14:52] LABS: BASO % 0.8 % (0.0-2.0); HEMOGLOBIN 12.1 g/dL (12.0-16.0); LYMPH # 1.1 K/uL (1.0-4.3); LYMPH % 82.7 % (20.0-40.0); MEAN CELL VOLUME 95.3 fl (81.0-99.0); MEAN CORPUSCULAR HEMOGLOBIN 32.4 pg (27.0-31.0); MEAN PLATELET VOLUME 7.7 fl (7.2-11.7); MONO % 3.8 % (0.0-10.0); NEUT # 0.1 K/uL (1.8-7.0); NRBC % 0.1 % (0.0-0.0); PLATELET COUNT 123 K/uL (130-400); RBC 3.75 Mil/uL (3.80-5.20); RED CELL DISTRIBUTION WIDTH 16.3 % (11.5-14.5)
[2017-11-18 15:03] LABS: BLOOD UREA NITROGEN 16 mg/dl (7-17); CALCIUM 9.2 mg/dL (8.4-10.2); GFR AFRICAN-AMERICAN > 60; GFR NON-AFRICAN AMERICAN > 60
--- NOTE | 2017-11-18 15:21 | ED PDOC ---
HPI: General Adult Time Seen by Provider: 11/18/17 13:13 Chief Complaint (Nursing): Flu-like Symptoms Chief Complaint (Provider): Flu-like Symptoms History Per: Patient History/Exam Limitations: no limitations Current Symptoms Are (Timing): Still Present Additional Complaint(s): 62 y/o female presents to the ED complaining of mouth sores and swelling to left upper cheek x 1 day. Reports pain and soreness inside mouth. She is a colon cancer patient and on chemotherapy. Last chemo was on 11/14/2017. Patient knows that her RBC count is usually low after Chemo but is worried. Denies sore throat, fever, cough, chest pain or any further medical complaints. PMD: Dr. Luis Wright Past Medical History Reviewed: Historical Data, Nursing Documentation, Vital Signs Vital Signs: Last Vital Signs Temp 97.8 F 11/18/17 12:40 Pulse 74 11/18/17 12:40 Resp 18 11/18/17 12:40 BP 138/66 11/18/17 12:40 Pulse Ox 99 11/18/17 16:37 - Medical History PMH: Anxiety, Asthma, Bronchitis, COPD, Emphysema, Hiatal Hernia, Hypothyroidism , Malignancy (colon cancer) Denies: Chronic Kidney Disease Other PMH: Colon Cancer - Surgical History Other surgeries: BILATERAL EAR SURGERY, AT 20YRS OF AGE. LIVER BX 08/2016 - Family History Family History: States: Stroke (Father - 60 yo) - Social History Current smoker - smoking cessation education provided: Yes (Heavy Smoker > 10 Cigarettes Daily) Alcohol: None Drugs: Denies - Home Medications Home Medications: Ambulatory Orders Medication Instructions Recorded Albuterol HFA [Ventolin HFA 90 1 puff IH Q4 PRN #1 unit 02/28/15 mcg/actuation (8 g)] ALPRAZolam [Xanax] 2 mg PO DAILY 04/13/15 Levothyroxine [Synthroid] 88 mcg PO DAILY 04/13/15 Propranolol [Inderal] 10 mg PO DAILY 04/13/15 Nebulizer [Aeroneb Go Nebulizer] 1 each MC Q4 PRN #1 each 03/20/16 Maprotiline HCl [Maprotiline HCl] 25 mg PO DAILY 08/28/16 Acetaminophen [Tylenol 325mg tab] 325 mg PO BID 09/25/16 Famotidine [Pepcid] 20 mg PO DAILY PRN 09/25/16 Guaifenesin/Pseudoephedrne HCl 1 tab PO DAILY PRN #30 ter 03/15/17 [Mucinex D 600 mg-60 mg] Polyethylene Glycol 3350 [Miralax] 17 gm PO DAILY PRN #30 packet 04/18/17 Sod Phos,M-B/Na Phos,Di-Ba [Fleet 1 each RC DAILY PRN #1 enema 04/18/17 Enema] predniSONE [predniSONE Tab] 60 mg PO DAILY #5 tab 09/09/17 Chlorhexidine 0.12% [Peridex] 10 ml PO TID #1 bottle 11/18/17 - Allergies Allergies/Adverse Reactions: Allergies Allergy/AdvReac Type Severity Reaction Status Date / Time Sulfa (Sulfonamide Allergy RASH Verified 04/18/17 11:20 Antibiotics) Review of Systems ROS Statement: Except As Marked, All Systems Reviewed And Found Negative (As per HPI, otherwise negative) Constitutional: Negative for: Fever ENT: Positive for: Mouth Swelling (and soreness). Negative for: Other (sore throat) Respiratory: Negative for: Cough Physical Exam - Reviewed Nursing Documentation Reviewed: Yes Vital Signs Reviewed: Yes - Physical Exam Appears: Positive for: Non-toxic, No Acute Distress Head Exam: Positive for: ATRAUMATIC, NORMAL INSPECTION, NORMOCEPHALIC Skin: Positive for: Normal Color, Warm, Dry Eye Exam: Positive for: EOMI, Normal appearance, PERRL ENT: Positive for: Other (multiple ulcers in mucous membrane of cheeks) Neck: Positive for: Normal, Painless ROM, Supple Cardiovascular/Chest: Positive for: Regular Rate, Rhythm. Negative for: Murmur Respiratory: Positive for: Normal Breath Sounds. Negative for: Accessory Muscle Use, Respiratory Distress Gastrointestinal/Abdominal: Positive for: Normal Exam, Soft. Negative for: Tenderness Back: Positive for: Normal Inspection Extremity: Positive for: Normal ROM. Negative for: Deformity Neurologic/Psych: Positive for: Alert, Oriented (x) - Laboratory Results Result Diagrams: 11/18/17 14:30 11/18/17 14:30 - ECG O2 Sat by Pulse Oximetry: 99 (RA) Pulse Ox Interpretation: Normal Medical Decision Making Medical Decision Making: Time: 14:30 Initial Impression: Mouth Ulcers Differential Diagnosis: aphthous stomatitis, neutropenia Plan: CMP CBC w/ differential Throat culture Rapid strep group Reevaluation Time: 16:00 --Case discussed with Dr. Wright --He says patient should receive dose of Granix in ED and patient is stable for discharge Scribe Attestation: Documented by Liborio Montoya acting as a scribe for Ivanna Ashby MD. Scribe Attestation: All medical record entries made by the Scribe were at my direction and personally dictated by me. I have reviewed the chart and agree that the record accurately reflects my personal performance of the history, physical exam, medical decision making, and the department course for this patient. I have also personally directed, reviewed, and agree with the discharge instructions and disposition. Disposition - Clinical Impression Clinical Impression: Ulcerative stomatitis, Neutropenia - Patient ED Disposition Is Patient to be Admitted: No Doctor Will See Patient In The: Office Counseled Patient/Family Regarding: Studies Performed, Diagnosis, Need For Followup - Disposition Referrals: Luis Wright MD [Family Provider] - Disposition: Routine/Home Disposition Time: 17:16 Condition: GOOD Additional Instructions: Follow up with your PCP tomorrow. Continue current treatment as instructed per PCP. Prescriptions: Chlorhexidine 0.12% [Peridex] 10 ml PO TID #1 bottle Instructions: Neutropenia, Mouth Sores
[2017-11-18 15:42] LABS: WHITE BLOOD COUNT 1.3 K/uL (4.8-10.8)
[2017-11-18 15:43] LABS: NEUT % 9.7 % (50.0-75.0)
[2017-11-18] MEDS ORDERED: Potassium Chloride 20 mEq ER Tab PO ONE ×2 (15:44→16:32)
[2017-11-18 16:35] LABS: EOSINOPHIL 1 % (0-7); LYMPHOCYTE 84 % (20-50); MONOCYTE 2 % (0-10); NEUTROPHIL 4 % (42-75); PLATELET ESTIMATE DECREASED (NORMAL); REACTIVE LYMPHOCYTES 9 % (0-0); TOTAL CELLS COUNTED 100
[2017-11-18 16:37] LABS: ANISOCYTOSIS SLIGHT; OVALOCYTES SLIGHT; SCHISTOCYTES SLIGHT
[2017-11-18 17:32] VITALS: BP 142/76; PULSE 67; RESP 15; TEMP 98.7; O2SAT 98
== END 2017-11-18 17:33 | disposition home or self-care (01) ==
LOC: H.ER 11:53
DX: K12.1 Other forms of stomatitis (principal); D70.9 Neutropenia, unspecified; C18.9 Malignant neoplasm of colon, unspecified; Z85.038 Personal history of other malignant neoplasm of large intestine; E03.9 Hypothyroidism, unspecified; F41.9 Anxiety disorder, unspecified; J44.9 Chronic obstructive pulmonary disease, unspecified
CPT/HCPCS: 80048; 85025; 87070; 87430; 96372; 99283; J1447

== ENCOUNTER 2017-11-26 14:05 | Inpatient (IN) | payer SELFPAY ==
[2017-11-26 14:06] VITALS: BMI 19.7
[2017-11-26] MEDS ORDERED: Sodium Chloride 0.9% 1,000 ML IV STA (14:48)
--- NOTE | 2017-11-26 14:54 | ED PDOC ---
HPI: General Adult Time Seen by Provider: 11/26/17 14:10 Chief Complaint (Nursing): Flu-like Symptoms Chief Complaint (Provider): Weakness History Per: Patient History/Exam Limitations: no limitations Onset/Duration Of Symptoms: Days Have you had recent travel within the past 21 days to any of the following countries: [place], [place], [place] or [place]?: No Current Symptoms Are (Timing): Still Present Additional History Per: Patient Additional Complaint(s): 62yo female with history of colon cancer (currently on chemotherapy with last session November 14, but then she had neutropenia so it was stopped. she has been on this same chemo for 6 months), COPD, anxiety, hypothyroidsm, presents to ED with complaints of generalized weakness as per at bedside. Patient states for the past couple days, she has been eating and drinking less than normal. Today she only drank one cup of water, that is very unusual for her. She also had an episode of vomiting last night and was only able to tolerate a sip of water this morning. Patient states she had diarrhea last week which has no resolved. She denies any fever, chills, chest pain, shortness of breath, abdominal pain. PMD: Dr. Luis Wright Past Medical History Reviewed: Historical Data, Nursing Documentation, Vital Signs Vital Signs: Last Vital Signs Temp 97.9 F 11/26/17 14:09 Pulse 91 H 11/26/17 16:06 Resp 28 H 11/26/17 16:06 BP 96/57 L 11/26/17 16:06 Pulse Ox 88 L 11/26/17 16:26 - Medical History PMH: Anxiety, Asthma, Bronchitis, COPD, Emphysema, Hiatal Hernia, Hypothyroidism , Malignancy (colon cancer) Denies: Chronic Kidney Disease - Surgical History Surgical History: No Surg Hx - Family History Family History: States: Stroke (Father - 60 yo) - Social History Current smoker - smoking cessation education provided: Yes SMOKER/PACKS PER DAY:: 1 Drugs: Denies - Home Medications Home Medications: Ambulatory Orders Medication Instructions Recorded Albuterol HFA [Ventolin HFA 90 1 puff IH Q4 PRN #1 unit 02/28/15 mcg/actuation (8 g)] ALPRAZolam [Xanax] 2 mg PO DAILY 04/13/15 Levothyroxine [Synthroid] 88 mcg PO DAILY 04/13/15 Propranolol [Inderal] 10 mg PO DAILY 04/13/15 Nebulizer [Aeroneb Go Nebulizer] 1 each MC Q4 PRN #1 each 03/20/16 Maprotiline HCl [Maprotiline HCl] 25 mg PO DAILY 08/28/16 Acetaminophen [Tylenol 325mg tab] 325 mg PO BID 09/25/16 Famotidine [Pepcid] 20 mg PO DAILY PRN 09/25/16 Guaifenesin/Pseudoephedrne HCl 1 tab PO DAILY PRN #30 ter 03/15/17 [Mucinex D 600 mg-60 mg] Polyethylene Glycol 3350 [Miralax] 17 gm PO DAILY PRN #30 packet 04/18/17 Sod Phos,M-B/Na Phos,Di-Ba [Fleet 1 each RC DAILY PRN #1 enema 04/18/17 Enema] predniSONE [predniSONE Tab] 60 mg PO DAILY #5 tab 09/09/17 Chlorhexidine 0.12% [Peridex] 10 ml PO TID #1 bottle 11/18/17 Ondansetron ODT [Zofran ODT] 4 mg PO Q8 PRN #12 odt 11/18/17 - Allergies Allergies/Adverse Reactions: Allergies Allergy/AdvReac Type Severity Reaction Status Date / Time Sulfa (Sulfonamide Allergy RASH Verified 04/18/17 11:20 Antibiotics) Review of Systems ROS Statement: Except As Marked, All Systems Reviewed And Found Negative (as per HPI) Constitutional: Positive for: Weakness. Negative for: Fever, Chills Cardiovascular: Negative for: Chest Pain Respiratory: Negative for: Shortness of Breath Gastrointestinal: Positive for: Vomiting (x 1 last night). Negative for: Abdominal Pain Physical Exam - Reviewed Nursing Documentation Reviewed: Yes Vital Signs Reviewed: Yes - Physical Exam Appears: Positive for: Non-toxic, No Acute Distress. Negative for: Well ( chronically ill appearing, cachectic) Head Exam: Positive for: ATRAUMATIC, NORMAL INSPECTION, NORMOCEPHALIC Skin: Positive for: Jaundice Eye Exam: Positive for: EOMI, PERRL Neck: Positive for: Painless ROM, Supple Cardiovascular/Chest: Positive for: Regular Rate, Rhythm Respiratory: Positive for: Decreased Breath Sounds (decreased air entry). Negative for: Wheezing, Respiratory Distress Gastrointestinal/Abdominal: Positive for: Normal Exam, Soft. Negative for: Tenderness Back: Positive for: Normal Inspection Extremity: Positive for: Normal ROM. Negative for: Pedal Edema, Deformity, Swelling Neurologic/Psych: Positive for: Alert, Oriented. Negative for: Motor/Sensory Deficits - Laboratory Results Result Diagrams: 11/26/17 15:00 11/26/17 15:00 - ECG O2 Sat by Pulse Oximetry: 88 - Critical Care Total Time (In Min): 30 Documented Critical Care: Time excludes all time spent performint seperately billable procedures Medical Decision Making Medical Decision Making: Impression: Generalized weakness, history of colon cancer stage 4. rule out electrolyte abnormality, rule out dehydration Plan: -- Labs -- EKG -- CXR -- IV Fluids -- VBG Time: 1511 CXR FINDINGS: LUNGS: No active pulmonary disease. PLEURA: No significant pleural effusion identified, no pneumothorax apparent. CARDIOVASCULAR: Normal heart size. Right central venous infusion port. No congestive change. OSSEOUS STRUCTURES: No significant abnormalities. VISUALIZED UPPER ABDOMEN: Normal. OTHER FINDINGS: None. IMPRESSION: No active disease. Time: 1540 Labs reviewed, significant for 11% bands. also significnat for worsening renal failure compared to prior labs, as well as low potassium - will replete with iv k. Case discussed with Dr. Trent Wright who states the patient has stage 4 colon cancer and is on chemotherapy. He is recommending admission for further care. FP resident aware of case (pts primary doc) Time: [address] Santana, welder tool and die paper cone grader who accepts patient to ICU. Patient does not meet code sepsis because initial vital signs were normal. despite elevated lactic acid and bands. Plan for admission discussed with patients who is agreeable. Scribe attestation: Documented by Florida Mccollum acting as a scribe for Virgil Herrera MD. Provider attestation: All medical record entries made by the Scribe were at my direction and personally dictated by me. I have reviewed the chart and agree that the record accurately reflects my personal performance of the history, physical exam, medical decision making, and the department course for this patient. I have also personally directed, reviewed, and agree with the discharge instructions and disposition. Disposition - Clinical Impression Clinical Impression: Dehydration, Renal failure, Sepsis - Patient ED Disposition Is Patient to be Admitted: Yes - Disposition Disposition Time: 16:00 Condition: STABLE Forms: [facility] [facility] (Par[place]ayan)
[2017-11-26 15:08] LABS: BASO % 0.2 % (0.0-2.0); HEMOGLOBIN 11.7 g/dL (12.0-16.0); LYMPH # 0.2 K/uL (1.0-4.3); LYMPH % 3.3 % (20.0-40.0); MEAN CELL VOLUME 93.7 fl (81.0-99.0); MEAN CORPUSCULAR HEMOGLOBIN 32.2 pg (27.0-31.0); MEAN CORPUSCULAR HGB CONC 34.4 g/dL (33.0-37.0); MEAN PLATELET VOLUME 8.5 fl (7.2-11.7); MONO # 0.2 K/uL (0.0-0.8); MONO % 2.9 % (0.0-10.0); NEUT # 4.9 K/uL (1.8-7.0); NEUT % 93.6 % (50.0-75.0); NRBC % 0.2 % (0.0-0.0); PLATELET COUNT 317 K/uL (130-400); RBC 3.63 Mil/uL (3.80-5.20); RED CELL DISTRIBUTION WIDTH 16.6 % (11.5-14.5); WHITE BLOOD COUNT 5.3 K/uL (4.8-10.8)
[2017-11-26 15:13] LABS: VENOUS BLOOD GAS BASE EXCESS -1.1 mmol/L (0.0-2.0); VENOUS BLOOD GAS PCO2 53 mmHg (40-60); VENOUS BLOOD GAS PO2 26 mm/Hg (30-55)
--- NOTE | 2017-11-26 15:13 | RAD ---
HISTORY: Sepsis Patient COMPARISON: No prior. FINDINGS: LUNGS: No active pulmonary disease. PLEURA: No significant pleural effusion identified, no pneumothorax apparent. CARDIOVASCULAR: Normal heart size. Right central venous infusion port. No congestive change. OSSEOUS STRUCTURES: No significant abnormalities. VISUALIZED UPPER ABDOMEN: Normal. OTHER FINDINGS: None. IMPRESSION: No active disease.
[2017-11-26 15:19] LABS: ALB/GLOB RATIO 1.1 (1.0-2.1); ALBUMIN 4.1 g/dL (3.5-5.0); CALCIUM 8.3 mg/dL (8.4-10.2)
[2017-11-26 15:26] LABS: INR 1.4 (0.9-1.2); PARTIAL THROMBOPLASTIN TIME 32.6 Seconds (25.6-37.1); PROTHROMBIN TIME 15.6 Seconds (9.8-13.1)
[2017-11-26] MEDS ORDERED: Potassium Chloride 20 mEq ER Tab PO ONE (15:57)
[2017-11-26 16:06] LABS: ANISOCYTOSIS SLIGHT; BANDS 11 % (0-2); LYMPHOCYTE 4 % (20-50); METAMYELOCYTE 2 % (0-0); MONOCYTE 6 % (0-10); MYELOCYTE 1 % (0-0); NEUTROPHIL 75 % (42-75); PLATELET ESTIMATE NORMAL (NORMAL); REACTIVE LYMPHOCYTES 1 % (0-0); TOTAL CELLS COUNTED 100
[2017-11-26 16:07] LABS: TOXIC GRANULATION PRESENT
[2017-11-26 16:08] LABS: HYPOCHROMIC SLIGHT
[2017-11-26] MEDS ORDERED: Potassium Chloride 20 mEq 0 ML ONE (16:17)
[2017-11-26] MEDS ORDERED: Piperacillin/Tazobact 3.375 GM in Sodium Chloride 0.9% 100 ML IVPB STA (16:26)
[2017-11-26] MEDS ORDERED: Piperacillin/Tazobact 3.375 gm Inj IVPB ONE (16:38)
[2017-11-26] MEDS: Potassium Chl 20 mEq in NS 1,000 ML IV SCH (16:39)
[2017-11-26 17:06] LABS: GRANULAR CAST 6 /lpf (0-1); SQUAMOUS EPITHIAL 2 /hpf (0-5); URINE BACTERIA RARE (<OCC); URINE BILIRUBIN SMALL (NEGATIVE); URINE BLOOD NEGATIVE (NEGATIVE); URINE CLARITY CLOUDY (Clear); URINE COLOR AMBER (YELLOW); URINE GLUCOSE (UA) NEG (Normal); URINE HYALINE CAST >20 /hpf (0-2); URINE LEUKOCYTE ESTERASE NEG Leu/uL (Negative); URINE PROTEIN 100 mg/dL (NEGATIVE)
[2017-11-26 18:37] LABS: VENOUS BLOOD GAS PCO2 48 mmHg (40-60); VENOUS BLOOD GAS PO2 78 mm/Hg (30-55); VENOUS BLOOD PH 7.36 (7.32-7.43)
--- NOTE | 2017-11-26 19:00 | CP.PCM.HP ---
History of Present Illness - History of Present Illness History of Present Illness: 62 yo ,f, PMhx/o colon Ca stage 4 with liver metastasis on chemotherapy for the last 6 months, last session 11/14/17, COPD, Anxiety, Hypothyroidism presents to ED with who reports generalized weakness and reports that patient has had low oral intake during the last 6-7 days, last time ate solid 3 days ago and only taking small amount of liquids. Only able to drink glass of water this morning and unable to stand up from bed today. He also reports vomiting last night unable to say how many and reports non bloody diarrhea 3-4 times/day during the last week that subsided 2 days ago. He denies fever, cough , SOB, chest pain, abd pain, dysuria, hematuria. On evaluation patient in ED lethargic, chachectic, arousable and well oriented x 3. Hemodynamically stable. PMD: Romy Miller.[facility] Hem-onc: Dr Wright PMH: Colon Ca stage 4 with liver metastasis on chemotherapy for the last 6 months, last session 11/14/17, COPD, Anxiety, Hypothyroidism Allergies: Sulfa Meds: Xanax ER 3 mg, Amlodipine 10 mg daily, Propranolol 10 mg daily, Levothryoxine 88 mcg daily PSurgHx: none PShx: Denies ETOH,rect drugs. Smoker for 40 years 1 PPD/day Code status: Full code Next of Kind: Jagdeep Bauer [phone] ED course: VS: afebrile 97.9 HR: 91 RR: 28 BP: 96/57 O2 sat:88 PE: lethargic, mild icterus. Mild abd distention. port-a-cath right chest wall Labs: CBC: 5.3>11.7<317 CMP: K:2.6 BUN/CR: 42/3.4 GFR: 14 VBG: PH: 7.30 Lact: 4.4 Basilio: 2.2 ASt: 86 ALt: 56 Imaging: CXr: no active disease. EKG:NSR. long Qt prolongation .nonspecific ST and T wave abnormality Meds: Sozyn,Vanco, K-dur 20 meq( not given) , IV fluids Present on Admission - Present on Admission Any Indicators Present on Admission: No History of DVT/PE: No History of Uncontrolled Diabetes: No Urinary Catheter: No Decubitus Ulcer Present: No Review of Systems - Review of Systems All systems: reviewed and no additional remarkable complaints except - Constitutional Constitutional: Anorexia - Gastrointestinal Gastrointestinal: Diarrhea, Vomiting Past Patient History - Infectious Disease Hx of Infectious Diseases: None - Past Medical History & Family History Past Medical History?: Yes - Past Social History Drugs: Denies - CARDIAC Other/Comment: palpitations - PULMONARY Hx Asthma: Yes Hx Bronchitis: Yes Hx Chronic Obstructive Pulmonary Disease (COPD): Yes Hx Emphysema: Yes - NEUROLOGICAL Hx Neurological Disorder: No - HEENT Hx HEENT Problems: No - RENAL Hx Chronic Kidney Disease: No - ENDOCRINE/METABOLIC Hx Hypothyroidism: Yes - HEMATOLOGICAL/ONCOLOGICAL Hx Blood Disorders: Yes Hx Cancer: Yes (COLON CA MET TO LIVER) - INTEGUMENTARY Hx Dermatological Problems: No - MUSCULOSKELETAL/RHEUMATOLOGICAL Hx Musculoskeletal Disorders: No - GASTROINTESTINAL Hx Gastrointestinal Disorders: Yes - GENITOURINARY/GYNECOLOGICAL Hx Genitourinary Disorders: No - PSYCHIATRIC Hx Anxiety: Yes - SURGICAL HISTORY Hx Surgeries: Yes Hx Hysterectomy: Yes (20YRS AGO) Other/Comment: BILATERAL EAR SURGERY, AT 20YRS OF AGE. LIVER BX 08/2016 - ANESTHESIA Hx Anesthesia: Yes Hx Anesthesia Reactions: No Hx Malignant Hyperthermia: No Meds Allergies/Adverse Reactions: Allergies Allergy/AdvReac Type Severity Reaction Status Date / Time Sulfa (Sulfonamide Allergy RASH Verified 04/18/17 11:20 Antibiotics) Physical Exam - Constitutional Appears: Cachectic, Chronically Ill - Head Exam Head Exam: ATRAUMATIC, NORMOCEPHALIC - Eye Exam Eye Exam: Normal appearance, Scleral icterus (mild) Pupil Exam: PERRL - ENT Exam ENT Exam: Mucous Membranes Dry - Neck Exam Neck exam: Positive for: Normal Inspection - Respiratory Exam Respiratory Exam: Decreased Breath Sounds. absent: Rales, Rhonchi, Wheezes - Cardiovascular Exam Cardiovascular Exam: REGULAR RHYTHM, +S1, +S2 - GI/Abdominal Exam GI & Abdominal Exam: Diminished Bowel Sounds, Soft. absent: Guarding, Rebound, Rigid, Tenderness - Extremities Exam Extremities exam: Positive for: normal inspection. Negative for: calf tenderness, pedal edema - Back Exam Back exam: NORMAL INSPECTION - Neurological Exam Neurological exam: Alert, Oriented x3 - Psychiatric Exam Psychiatric exam: Normal Affect, Normal Mood - Skin Skin Exam: Pallor (and mild icterus) Results - Vital Signs Recent Vital Signs: Last Vital Signs Temp 98.3 F 11/26/17 18:23 Pulse 77 11/26/17 18:23 Resp 26 H 11/26/17 18:23 BP 97/53 L 11/26/17 18:23 Pulse Ox 99 11/26/17 18:23 - Labs Result Diagrams: 11/26/17 15:00 11/26/17 15:00 Labs: Laboratory Results - last 24 hr 11/26/17 11/26/17 11/26/17 14:21 15:00 15:00 WBC 5.3 D RBC 3.63 L Hgb 11.7 L Hct 34.1 MCV 93.7 MCH 32.2 H MCHC 34.4 RDW 16.6 H Plt Count 317 D MPV 8.5 Neut % (Auto) 93.6 H Lymph % (Auto) 3.3 L Mccone % (Auto) 2.9 Eos % (Auto) 0.0 Baso % (Auto) 0.2 Neut # (Auto) 4.9 Lymph # (Auto) 0.2 L Mccone # (Auto) 0.2 Eos # (Auto) 0.0 Baso # (Auto) 0.0 Neutrophils % (Manual) 75 Band Neutrophils % 11 H* Lymphocytes % (Manual) 4 L Reactive Lymphs % 1 H Monocytes % (Manual) 6 Metamyelocytes % 2 H Myelocytes % 1 H Toxic Granulation Present Platelet Estimate Normal Hypochromasia (manual) Slight Anisocytosis (manual) Slight PT INR APTT pO2 VBG pH VBG pCO2 VBG HCO3 VBG Total CO2 VBG O2 Sat (Calc) VBG Base Excess VBG Potassium Glucose Lactate FiO2 Crit Value Called To Crit Value Called By Crit Value Read Back Blood Gas Notified Time Sodium 136 Potassium 2.6 L Chloride 86 L Carbon Dioxide 22 Anion Gap 31 H BUN 42 H Creatinine 3.4 H Est GFR ( Amer) 17 Est GFR (Non-Af Amer) 14 POC Glucose (mg/dL) 118 H Random Glucose 134 H Calcium 8.3 L Total Bilirubin 2.2 H AST 86 H D ALT 56 H D Alkaline Phosphatase 231 H D Total Protein 7.6 Albumin 4.1 Globulin 3.6 Albumin/Globulin Ratio 1.1 Venous Blood Potassium Urine Color Urine Clarity Urine pH Ur Specific [place] Urine Protein Urine Glucose (UA) Urine Ketones Urine Blood Urine Nitrate Urine Bilirubin Urine Urobilinogen Ur Leukocyte Esterase Urine RBC (Auto) Urine Microscopic WBC Ur Squamous Epith Cells Urine Bacteria Hyaline Casts Granular Casts (Auto) 11/26/17 11/26/17 11/26/17 15:00 15:09 16:38 WBC RBC Hgb Hct MCV MCH MCHC RDW Plt Count MPV Neut % (Auto) Lymph % (Auto) Mccone % (Auto) Eos % (Auto) Baso % (Auto) Neut # (Auto) Lymph # (Auto) Mccone # (Auto) Eos # (Auto) Baso # (Auto) Neutrophils % (Manual) Band Neutrophils % Lymphocytes % (Manual) Reactive Lymphs % Monocytes % (Manual) Metamyelocytes % Myelocytes % Toxic Granulation Platelet Estimate Hypochromasia (manual) Anisocytosis (manual) PT 15.6 H INR 1.4 H APTT 32.6 pO2 26 L VBG pH 7.30 L VBG pCO2 53 VBG HCO3 22.5 VBG Total CO2 27.7 VBG O2 Sat (Calc) 45.4 VBG Base Excess -1.1 L VBG Potassium 2.4 L* Glucose 133 H Lactate 4.4 H* FiO2 21.0 Crit Value Called To Virgil villavicencio md Crit Value Called By 6075 Crit Value Read Back Y Blood Gas Notified Time 1513 Sodium 130.0 L Potassium Chloride 88.0 L Carbon Dioxide Anion Gap BUN Creatinine Est GFR ( Amer) Est GFR (Non-Af Amer) POC Glucose (mg/dL) Random Glucose Calcium Total Bilirubin AST ALT Alkaline Phosphatase Total Protein Albumin Globulin Albumin/Globulin Ratio Venous Blood Potassium 2.4 L* Urine Color Michelle Urine Clarity Cloudy Urine pH 5.0 Ur Specific [place] 1.021 Urine Protein 100 Urine Glucose (UA) Neg Urine Ketones Negative Urine Blood Negative Urine Nitrate Negative Urine Bilirubin Small Urine Urobilinogen 4.0 H Ur Leukocyte Esterase Neg Urine RBC (Auto) 2 Urine Microscopic WBC 6 H Ur Squamous Epith Cells 2 Urine Bacteria Rare Hyaline Casts >20 H Granular Casts (Auto) 6 11/26/17 18:28 WBC RBC Hgb Hct MCV MCH MCHC RDW Plt Count MPV Neut % (Auto) Lymph % (Auto) Mccone % (Auto) Eos % (Auto) Baso % (Auto) Neut # (Auto) Lymph # (Auto) Mccone # (Auto) Eos # (Auto) Baso # (Auto) Neutrophils % (Manual) Band Neutrophils % Lymphocytes % (Manual) Reactive Lymphs % Monocytes % (Manual) Metamyelocytes % Myelocytes % Toxic Granulation Platelet Estimate Hypochromasia (manual) Anisocytosis (manual) PT INR APTT pO2 78 H VBG pH 7.36 VBG pCO2 48 VBG HCO3 25.6 VBG Total CO2 28.6 H VBG O2 Sat (Calc) 97.3 H VBG Base Excess 1.0 VBG Potassium 2.3 L* Glucose 130 H Lactate 1.2 FiO2 21.0 Crit Value Called To Pina contreras md Crit Value Called By 6075 Crit Value Read Back Y Blood Gas Notified Time 183 Sodium 135.0 Potassium Chloride 98.0 Carbon Dioxide Anion Gap BUN Creatinine Est GFR ( Amer) Est GFR (Non-Af Amer) POC Glucose (mg/dL) Random Glucose Calcium Total Bilirubin AST ALT Alkaline Phosphatase Total Protein Albumin Globulin Albumin/Globulin Ratio Venous Blood Potassium 2.3 L* Urine Color Urine Clarity Urine pH Ur Specific [place] Urine Protein Urine Glucose (UA) Urine Ketones Urine Blood Urine Nitrate Urine Bilirubin Urine Urobilinogen Ur Leukocyte Esterase Urine RBC (Auto) Urine Microscopic WBC Ur Squamous Epith Cells Urine Bacteria Hyaline Casts Granular Casts (Auto) Assessment & Plan - Assessment and Plan (Free Text) Plan: 62 yo ,f, PMhx/o liver metastatic colon Ca stage 4 on chemotheraphy for the last 6 months, last session 11/14/17, COPD, Anxiety, Hypothyroidism admitted in ICU for Dehydration, MADDI, Colon Ca with liver mets and possible sepsis Assessment/Plan 1) Dehydration Secondary to Low oral intake over the last 6 days( malignancy), vomiting and diarrhea -UA: hyaline cast -s/p IV fluids ED -continue NS 125 ml/h 2) MADDI Prerenal secondary to dehydration -BUN/Cr 42/3.4 GFR: 14 -s/p IV fluids ED -continue NS 125 ml/h -f/u CMP 3) Hypokalemia K 2.6 -kdur 20 ordered in Ed. Not given.patient with difficulty to swallow the pill -will order kcl 10 meq 4 rounds -f/u swallow test 4) Metastatic liver Colon Ca stage 4 -on chemotherapy for the last 6 months( 20-22 session aprox) -last chemotherapy 11/14/17 -Ct Abd reviewed: liver metastatic lesion -On f/u by Dr Wright: case discussed with Dr Wright in Ed. Suggest to admit patient 5) SIRS HR: 91, RR: 28 -With possible sepsis associated but w/o source of infection at this moment - s/p IV Vancomycin, zosyn due to possible line infection. -c/w zosyn, vancomycin renal dose -f/u blood cx, urine cx 6) COPD -Hx/o heavy smoker for 40 years 1 PPD -Not on treatment - 7) Hypothyroidism Levothyroxin 88 mcg daily -f/u TSH 8) Anxiety -Xanax 3 mg daily 9) DVT Prophylaxis Heparin 5000 sc TID -SCD
--- NOTE | 2017-11-26 19:43 | CP.CCUPN ---
CCU Subjective - Physician Review Events Since Last Encounter (Free Text): 11/26/17 19:46 The patient was Seen/interviewed and examined by me at the bedside, Medical records reviewed and Management issues were discussed and formulated with the house staff. Events reviewed 62 Years old Female with PMHx of Anxiety, Asthma, Bronchitis, COPD, Emphysema, Hiatal Hernia, Hypothyroidism and colon cancer (currently on chemotherapy with last session November 14) Who presents to ED with complaints of generalized weakness as per at bedside. In the ER she is hypotensive and tachcardic (Vital improved with IV hydratiion) Patient awake, Lethergic, looks dehydrated and chronically sick Blood culture sent and Patient started on IV Vanco and Zosyn Denies any chest pain, SOB or Palpitations No fever/chills NSR on the monitor \ Critical Care Time Spent (in minutes): 38 CCU Objective - Vital Signs / Intake & Output Vital Signs (Last 4 hours): Vital Signs Temp Pulse Resp BP Pulse Ox 11/26/17 19:27 76 23 96/58 L 96 11/26/17 18:23 98.3 F 77 26 H 97/53 L 99 11/26/17 16:52 100.8 F H 85 28 H 103/56 L 99 11/26/17 16:50 88 L 11/26/17 16:06 91 H 28 H 96/57 L 98 11/26/17 16:00 91 H 22 96/57 L 98 Intake and Output (Last 8hrs): Intake & Output 11/26/17 11/26/17 11/26/17 06:59 14:59 22:59 Weight 100 lb - Physical Exam Physical Exam Limitations: Positive for: Altered Mental Status, Clinical Condition, Uncooperative Head: Positive for: Atraumatic, Normocephalic Pupils: Positive for: PERRL Extroacular Muscles: Positive for: EOMI Conjunctiva: Positive for: Normal. Negative for: Injected, Icteric Mouth: Positive for: Dry Nose (Internal): Positive for: Normal Inspection Neck: Positive for: Normal Range of Motion, Trachea Midline. Negative for: Meningeal Signs, MIDLINE TENDERNESS, Paraspinal Tenderness, JVD, Lymphadenopathy , Bruit, Other Respiratory/Chest: Positive for: Good Air Exchange, Decreased Breath Sounds, Rhonchi. Negative for: Respiratory Distress, Accessory Muscle Use, Wheezes, Rales, Retracting Cardiovascular: Positive for: Regular Rate and Rhythm, Normal S1, S2, Peripheal Pulses Present, Tachycardic. Negative for: Murmurs, Irregular Rhythm Abdomen: Positive for: Distention, Normal Bowel Sounds. Negative for: Tenderness, Peritoneal Signs Upper Extremity: Positive for: Normal Inspection, NORMAL PULSES. Negative for: Cyanosis, Edema Lower Extremity: Positive for: Normal Inspection, NORMAL PULSES. Negative for: Edema, CALF TENDERNESS Neurological: Positive for: Motor Func Grossly Intact, Normal Sensory Function Psychiatric: Positive for: Alert - Medications Active Medications: Active Medications Generic Name Dose Route Start Last Admin Trade Name Freq PRN Reason Stop Dose Admin Sodium Chloride 1,000 mls @ 200 mls/hr 11/26/17 14:48 11/26/17 15:11 Sodium Chloride 0.9% IV 11/26/17 19:47 200 mls/hr .Q5H STA Administration Potassium Chloride/Sodium Chloride 1,000 mls @ 100 mls/hr 11/26/17 16:15 16:39 Potassium Chl 20 Meq In Ns IV 100 mls/hr .Q10H JASMINE Administration - Patient Studies Lab Studies: Lab Studies 11/26/17 11/26/17 11/26/17 Range/Units 18:28 16:38 15:09 WBC (4.8-10.8) K/uL RBC (3.80-5.20) Mil/uL Hgb (12.0-16.0) g/dL Hct (34.0-47.0) % MCV (81.0-99.0) fl MCH (27.0-31.0) pg MCHC (33.0-37.0) g/dL RDW (11.5-14.5) % Plt Count (130-400) K/uL MPV (7.2-11.7) fl Neut % (Auto) (50.0-75.0) % Lymph % (Auto) (20.0-40.0) % Angelina % (Auto) (0.0-10.0) % Eos % (Auto) (0.0-4.0) % Baso % (Auto) (0.0-2.0) % Neut # (Auto) (1.8-7.0) K/uL Lymph # (Auto) (1.0-4.3) K/uL Angelina # (Auto) (0.0-0.8) K/uL Eos # (Auto) (0.0-0.7) K/uL Baso # (Auto) (0.0-0.2) K/uL Neutrophils % (Manual) (42-75) % Band Neutrophils % (0-2) % Lymphocytes % (Manual) (20-50) % Reactive Lymphs % (0-0) % Monocytes % (Manual) (0-10) % Metamyelocytes % (0-0) % Myelocytes % (0-0) % Toxic Granulation Platelet Estimate (NORMAL) Hypochromasia (manual) Anisocytosis (manual) PT (9.8-13.1) Seconds INR (0.9-1.2) APTT (25.6-37.1) Seconds pO2 78 H 26 L (30-55) mm/Hg VBG pH 7.36 7.30 L (7.32-7.43) VBG pCO2 48 53 (40-60) mmHg VBG HCO3 25.6 22.5 mmol/L VBG Total CO2 28.6 H 27.7 (22-28) mmol/L VBG O2 Sat (Calc) 97.3 H 45.4 (40-65) % VBG Base Excess 1.0 -1.1 L (0.0-2.0) mmol/L VBG Potassium 2.3 L* 2.4 L* (3.6-5.2) mmol/L Glucose 130 H 133 H (65-105) mg/dL Lactate 1.2 4.4 H* (0.7-2.1) mmol/L FiO2 21.0 21.0 % Crit Value Called To Pina villavicencio md Crit Value Called By [id number] Crit Value Read Back Y Y Blood Gas Notified Time 1835 1513 Sodium 135.0 130.0 L (132-148) mmol/l Potassium (3.6-5.0) MMOL/L Chloride 98.0 88.0 L (98-107) mmol/L Carbon Dioxide (22-30) mmol/L Anion Gap (10-20) BUN (7-17) mg/dl Creatinine (0.7-1.2) mg/dl Est GFR ( Amer) Est GFR (Non-Af Amer) POC Glucose (mg/dL) (65-110) mg/dL Random Glucose (65-105) mg/dL Calcium (8.4-10.2) mg/dL Total Bilirubin (0.2-1.3) mg/dl AST (14-36) U/L ALT (9-52) U/L Alkaline Phosphatase (38-126) U/L Total Protein (6.3-8.2) G/DL Albumin (3.5-5.0) g/dL Globulin (2.2-3.9) gm/dL Albumin/Globulin Ratio (1.0-2.1) Venous Blood Potassium 2.3 L* 2.4 L* (3.6-5.2) mmol/L Urine Color Michelle (YELLOW) Urine Clarity Cloudy (Clear) Urine pH 5.0 (5.0-8.0) Ur Specific King 1.021 (1.003-1.030) Urine Protein 100 (NEGATIVE) mg/dL Urine Glucose (UA) Neg (Normal) mg/dL Urine Ketones Negative (NEGATIVE) mg/dL Urine Blood Negative (NEGATIVE) Urine Nitrate Negative (NEGATIVE) Urine Bilirubin Small (NEGATIVE) Urine Urobilinogen 4.0 H (0.2-1.0) mg/dL Ur Leukocyte Esterase Neg (Negative) Lien/uL Urine RBC (Auto) 2 (0-3) /hpf Urine Microscopic WBC 6 H (0-5) /hpf Ur Squamous Epith Cells 2 (0-5) /hpf Urine Bacteria Rare (<OCC) Hyaline Casts >20 H (0-2) /hpf Granular Casts (Auto) 6 (0-1) /lpf 11/26/17 11/26/17 11/26/17 Range/Units 15:00 15:00 15:00 WBC 5.3 D (4.8-10.8) K/uL RBC 3.63 L (3.80-5.20) Mil/uL Hgb 11.7 L (12.0-16.0) g/dL Hct 34.1 (34.0-47.0) % MCV 93.7 (81.0-99.0) fl MCH 32.2 H (27.0-31.0) pg MCHC 34.4 (33.0-37.0) g/dL RDW 16.6 H (11.5-14.5) % Plt Count 317 D (130-400) K/uL MPV 8.5 (7.2-11.7) fl Neut % (Auto) 93.6 H (50.0-75.0) % Lymph % (Auto) 3.3 L (20.0-40.0) % Angelina % (Auto) 2.9 (0.0-10.0) % Eos % (Auto) 0.0 (0.0-4.0) % Baso % (Auto) 0.2 (0.0-2.0) % Neut # (Auto) 4.9 (1.8-7.0) K/uL Lymph # (Auto) 0.2 L (1.0-4.3) K/uL Angelina # (Auto) 0.2 (0.0-0.8) K/uL Eos # (Auto) 0.0 (0.0-0.7) K/uL Baso # (Auto) 0.0 (0.0-0.2) K/uL Neutrophils % (Manual) 75 (42-75) % Band Neutrophils % 11 H* (0-2) % Lymphocytes % (Manual) 4 L (20-50) % Reactive Lymphs % 1 H (0-0) % Monocytes % (Manual) 6 (0-10) % Metamyelocytes % 2 H (0-0) % Myelocytes % 1 H (0-0) % Toxic Granulation Present Platelet Estimate Normal (NORMAL) Hypochromasia (manual) Slight Anisocytosis (manual) Slight PT 15.6 H (9.8-13.1) Seconds INR 1.4 H (0.9-1.2) APTT 32.6 (25.6-37.1) Seconds pO2 (30-55) mm/Hg VBG pH (7.32-7.43) VBG pCO2 (40-60) mmHg VBG HCO3 mmol/L VBG Total CO2 (22-28) mmol/L VBG O2 Sat (Calc) (40-65) % VBG Base Excess (0.0-2.0) mmol/L VBG Potassium (3.6-5.2) mmol/L Glucose (65-105) mg/dL Lactate (0.7-2.1) mmol/L FiO2 % Crit Value Called To Crit Value Called By Crit Value Read Back Blood Gas Notified Time Sodium 136 (132-148) mmol/l Potassium 2.6 L (3.6-5.0) MMOL/L Chloride 86 L (98-107) mmol/L Carbon Dioxide 22 (22-30) mmol/L Anion Gap 31 H (10-20) BUN 42 H (7-17) mg/dl Creatinine 3.4 H (0.7-1.2) mg/dl Est GFR ( Amer) 17 Est GFR (Non-Af Amer) 14 POC Glucose (mg/dL) (65-110) mg/dL Random Glucose 134 H (65-105) mg/dL Calcium 8.3 L (8.4-10.2) mg/dL Total Bilirubin 2.2 H (0.2-1.3) mg/dl AST 86 H D (14-36) U/L ALT 56 H D (9-52) U/L Alkaline Phosphatase 231 H D (38-126) U/L Total Protein 7.6 (6.3-8.2) G/DL Albumin 4.1 (3.5-5.0) g/dL Globulin 3.6 (2.2-3.9) gm/dL Albumin/Globulin Ratio 1.1 (1.0-2.1) Venous Blood Potassium (3.6-5.2) mmol/L Urine Color (YELLOW) Urine Clarity (Clear) Urine pH (5.0-8.0) Ur Specific King (1.003-1.030) Urine Protein (NEGATIVE) mg/dL Urine Glucose (UA) (Normal) mg/dL Urine Ketones (NEGATIVE) mg/dL Urine Blood (NEGATIVE) Urine Nitrate (NEGATIVE) Urine Bilirubin (NEGATIVE) Urine Urobilinogen (0.2-1.0) mg/dL Ur Leukocyte Esterase (Negative) Lien/uL Urine RBC (Auto) (0-3) /hpf Urine Microscopic WBC (0-5) /hpf Ur Squamous Epith Cells (0-5) /hpf Urine Bacteria (<OCC) Hyaline Casts (0-2) /hpf Granular Casts (Auto) (0-1) /lpf 11/26/17 Range/Units 14:21 WBC (4.8-10.8) K/uL RBC (3.80-5.20) Mil/uL Hgb (12.0-16.0) g/dL Hct (34.0-47.0) % MCV (81.0-99.0) fl MCH (27.0-31.0) pg MCHC (33.0-37.0) g/dL RDW (11.5-14.5) % Plt Count (130-400) K/uL MPV (7.2-11.7) fl Neut % (Auto) (50.0-75.0) % Lymph % (Auto) (20.0-40.0) % Angelina % (Auto) (0.0-10.0) % Eos % (Auto) (0.0-4.0) % Baso % (Auto) (0.0-2.0) % Neut # (Auto) (1.8-7.0) K/uL Lymph # (Auto) (1.0-4.3) K/uL Angelina # (Auto) (0.0-0.8) K/uL Eos # (Auto) (0.0-0.7) K/uL Baso # (Auto) (0.0-0.2) K/uL Neutrophils % (Manual) (42-75) % Band Neutrophils % (0-2) % Lymphocytes % (Manual) (20-50) % Reactive Lymphs % (0-0) % Monocytes % (Manual) (0-10) % Metamyelocytes % (0-0) % Myelocytes % (0-0) % Toxic Granulation Platelet Estimate (NORMAL) Hypochromasia (manual) Anisocytosis (manual) PT (9.8-13.1) Seconds INR (0.9-1.2) APTT (25.6-37.1) Seconds pO2 (30-55) mm/Hg VBG pH (7.32-7.43) VBG pCO2 (40-60) mmHg VBG HCO3 mmol/L VBG Total CO2 (22-28) mmol/L VBG O2 Sat (Calc) (40-65) % VBG Base Excess (0.0-2.0) mmol/L VBG Potassium (3.6-5.2) mmol/L Glucose (65-105) mg/dL Lactate (0.7-2.1) mmol/L FiO2 % Crit Value Called To Crit Value Called By Crit Value Read Back Blood Gas Notified Time Sodium (132-148) mmol/l Potassium (3.6-5.0) MMOL/L Chloride (98-107) mmol/L Carbon Dioxide (22-30) mmol/L Anion Gap (10-20) BUN (7-17) mg/dl Creatinine (0.7-1.2) mg/dl Est GFR ( Amer) Est GFR (Non-Af Amer) POC Glucose (mg/dL) 118 H (65-110) mg/dL Random Glucose (65-105) mg/dL Calcium (8.4-10.2) mg/dL Total Bilirubin (0.2-1.3) mg/dl AST (14-36) U/L ALT (9-52) U/L Alkaline Phosphatase (38-126) U/L Total Protein (6.3-8.2) G/DL Albumin (3.5-5.0) g/dL Globulin (2.2-3.9) gm/dL Albumin/Globulin Ratio (1.0-2.1) Venous Blood Potassium (3.6-5.2) mmol/L Urine Color (YELLOW) Urine Clarity (Clear) Urine pH (5.0-8.0) Ur Specific King (1.003-1.030) Urine Protein (NEGATIVE) mg/dL Urine Glucose (UA) (Normal) mg/dL Urine Ketones (NEGATIVE) mg/dL Urine Blood (NEGATIVE) Urine Nitrate (NEGATIVE) Urine Bilirubin (NEGATIVE) Urine Urobilinogen (0.2-1.0) mg/dL Ur Leukocyte Esterase (Negative) Lien/uL Urine RBC (Auto) (0-3) /hpf Urine Microscopic WBC (0-5) /hpf Ur Squamous Epith Cells (0-5) /hpf Urine Bacteria (<OCC) Hyaline Casts (0-2) /hpf Granular Casts (Auto) (0-1) /lpf Laboratory Results - last 24 hr 11/26/17 11/26/17 11/26/17 14:21 15:00 15:00 WBC 5.3 D RBC 3.63 L Hgb 11.7 L Hct 34.1 MCV 93.7 MCH 32.2 H MCHC 34.4 RDW 16.6 H Plt Count 317 D MPV 8.5 Neut % (Auto) 93.6 H Lymph % (Auto) 3.3 L Angelina % (Auto) 2.9 Eos % (Auto) 0.0 Baso % (Auto) 0.2 Neut # (Auto) 4.9 Lymph # (Auto) 0.2 L Angelina # (Auto) 0.2 Eos # (Auto) 0.0 Baso # (Auto) 0.0 Neutrophils % (Manual) 75 Band Neutrophils % 11 H* Lymphocytes % (Manual) 4 L Reactive Lymphs % 1 H Monocytes % (Manual) 6 Metamyelocytes % 2 H Myelocytes % 1 H Toxic Granulation Present Platelet Estimate Normal Hypochromasia (manual) Slight Anisocytosis (manual) Slight PT INR APTT pO2 VBG pH VBG pCO2 VBG HCO3 VBG Total CO2 VBG O2 Sat (Calc) VBG Base Excess VBG Potassium Glucose Lactate FiO2 Crit Value Called To Crit Value Called By Crit Value Read Back Blood Gas Notified Time Sodium 136 Potassium 2.6 L Chloride 86 L Carbon Dioxide 22 Anion Gap 31 H BUN 42 H Creatinine 3.4 H Est GFR ( Amer) 17 Est GFR (Non-Af Amer) 14 POC Glucose (mg/dL) 118 H Random Glucose 134 H Calcium 8.3 L Total Bilirubin 2.2 H AST 86 H D ALT 56 H D Alkaline Phosphatase 231 H D Total Protein 7.6 Albumin 4.1 Globulin 3.6 Albumin/Globulin Ratio 1.1 Venous Blood Potassium Urine Color Urine Clarity Urine pH Ur Specific King Urine Protein Urine Glucose (UA) Urine Ketones Urine Blood Urine Nitrate Urine Bilirubin Urine Urobilinogen Ur Leukocyte Esterase Urine RBC (Auto) Urine Microscopic WBC Ur Squamous Epith Cells Urine Bacteria Hyaline Casts Granular Casts (Auto) 11/26/17 11/26/17 11/26/17 15:00 15:09 16:38 WBC RBC Hgb Hct MCV MCH MCHC RDW Plt Count MPV Neut % (Auto) Lymph % (Auto) Angelina % (Auto) Eos % (Auto) Baso % (Auto) Neut # (Auto) Lymph # (Auto) Angelina # (Auto) Eos # (Auto) Baso # (Auto) Neutrophils % (Manual) Band Neutrophils % Lymphocytes % (Manual) Reactive Lymphs % Monocytes % (Manual) Metamyelocytes % Myelocytes % Toxic Granulation Platelet Estimate Hypochromasia (manual) Anisocytosis (manual) PT 15.6 H INR 1.4 H APTT 32.6 pO2 26 L VBG pH 7.30 L VBG pCO2 53 VBG HCO3 22.5 VBG Total CO2 27.7 VBG O2 Sat (Calc) 45.4 VBG Base Excess -1.1 L VBG Potassium 2.4 L* Glucose 133 H Lactate 4.4 H* FiO2 21.0 Crit Value Called To Virgil villavicencio md Crit Value Called By 6075 Crit Value Read Back Y Blood Gas Notified Time 1513 Sodium 130.0 L Potassium Chloride 88.0 L Carbon Dioxide Anion Gap BUN Creatinine Est GFR ( Amer) Est GFR (Non-Af Amer) POC Glucose (mg/dL) Random Glucose Calcium Total Bilirubin AST ALT Alkaline Phosphatase Total Protein Albumin Globulin Albumin/Globulin Ratio Venous Blood Potassium 2.4 L* Urine Color Michelle Urine Clarity Cloudy Urine pH 5.0 Ur Specific King 1.021 Urine Protein 100 Urine Glucose (UA) Neg Urine Ketones Negative Urine Blood Negative Urine Nitrate Negative Urine Bilirubin Small Urine Urobilinogen 4.0 H Ur Leukocyte Esterase Neg Urine RBC (Auto) 2 Urine Microscopic WBC 6 H Ur Squamous Epith Cells 2 Urine Bacteria Rare Hyaline Casts >20 H Granular Casts (Auto) 6 11/26/17 18:28 WBC RBC Hgb Hct MCV MCH MCHC RDW Plt Count MPV Neut % (Auto) Lymph % (Auto) Angelina % (Auto) Eos % (Auto) Baso % (Auto) Neut # (Auto) Lymph # (Auto) Angelina # (Auto) Eos # (Auto) Baso # (Auto) Neutrophils % (Manual) Band Neutrophils % Lymphocytes % (Manual) Reactive Lymphs % Monocytes % (Manual) Metamyelocytes % Myelocytes % Toxic Granulation Platelet Estimate Hypochromasia (manual) Anisocytosis (manual) PT INR APTT pO2 78 H VBG pH 7.36 VBG pCO2 48 VBG HCO3 25.6 VBG Total CO2 28.6 H VBG O2 Sat (Calc) 97.3 H VBG Base Excess 1.0 VBG Potassium 2.3 L* Glucose 130 H Lactate 1.2 FiO2 21.0 Crit Value Called To Pina contreras md Crit Value Called By 6075 Crit Value Read Back Y Blood Gas Notified Time 1837 Sodium 135.0 Potassium Chloride 98.0 Carbon Dioxide Anion Gap BUN Creatinine Est GFR ( Amer) Est GFR (Non-Af Amer) POC Glucose (mg/dL) Random Glucose Calcium Total Bilirubin AST ALT Alkaline Phosphatase Total Protein Albumin Globulin Albumin/Globulin Ratio Venous Blood Potassium 2.3 L* Urine Color Urine Clarity Urine pH Ur Specific King Urine Protein Urine Glucose (UA) Urine Ketones Urine Blood Urine Nitrate Urine Bilirubin Urine Urobilinogen Ur Leukocyte Esterase Urine RBC (Auto) Urine Microscopic WBC Ur Squamous Epith Cells Urine Bacteria Hyaline Casts Granular Casts (Auto) EKG/Cardiology Studies: Cardiology / EKG Studies 11/26/17 14:47 ELECTROCARDIOGRAM Stat Comment: Mode Of Transportation: Reason For Exam: Sepsis Patient Fingerstick Blood Sugar Results: 118 Review of Systems - Review of Systems Systems not reviewed;Unavailable: Uncooperative Critical Care Progress Note - Extremities/Vascular Does the Patient have a Oleary Catheter?: No Does the Patient need a Oleary Catheter?: No Assessment/Plan (1) Severe sepsis Current Visit: Yes Status: Acute Comment: Blood culture sent and Patient started on IV Vanco and Zosyn Continue IV hydration with NS at 125 cc/hr; continue to reassess fluid status regularly Monitor UOP Monitor fever curve, Tylenol PRN fevers Trend WBC count, lactate (2) MADDI (acute kidney injury) Current Visit: Yes Status: Acute Comment: Volume resuscitaion with NS or isotonic normal saline @ 125cc/H Corrrect hypokalemia Repeat Labs, EKG, lactic acid, CPK, phosphate Place a oleary and monitor urine output IV Emperic Anx (renally dosed) Liu cultures (3) Dehydration Current Visit: Yes Status: Acute (4) COPD (chronic obstructive pulmonary disease) Current Visit: No Status: Acute (5) Hypokalemia Current Visit: Yes Status: Acute (6) Port-a-cath in place Current Visit: No Status: Acute
[2017-11-26] MEDS: Sodium Chloride 0.9% 1,000 ML IV SCH (22:16)
[2017-11-26] MEDS ORDERED: HYDROmorphone 0.5 mg/0.5 ml ISec IVP PRN (22:22)
[2017-11-27] MEDS ORDERED: Potassium Chloride 20 mEq 100 ML IVPB SCH
[2017-11-27] MEDS: Potassium Chloride 20 mEq 100 ML IVPB SCH ×2 (00:59→02:47)
[2017-11-27 01:01] LABS: CALCIUM 6.7 mg/dL (8.4-10.2)
[2017-11-27] MEDS: Potassium Chl 20 mEq in NS 1,000 ML IV SCH ×2 (02:50→16:49)
[2017-11-27 05:39] LABS: INR 1.4 (0.9-1.2); PARTIAL THROMBOPLASTIN TIME 31.4 Seconds (25.6-37.1)
[2017-11-27 06:00] LABS: BASO % 0.1 % (0.0-2.0); EOS % 0.1 % (0.0-4.0); HEMOGLOBIN 9.9 g/dL (12.0-16.0); LYMPH # 0.4 K/uL (1.0-4.3); MEAN CELL VOLUME 95.4 fl (81.0-99.0); MEAN CORPUSCULAR HEMOGLOBIN 32.2 pg (27.0-31.0); MEAN CORPUSCULAR HGB CONC 33.8 g/dL (33.0-37.0); MEAN PLATELET VOLUME 8.7 fl (7.2-11.7); MONO # 0.2 K/uL (0.0-0.8); MONO % 5.4 % (0.0-10.0); NEUT # 2.5 K/uL (1.8-7.0); NEUT % 80.4 % (50.0-75.0); RBC 3.07 Mil/uL (3.80-5.20); RED CELL DISTRIBUTION WIDTH 16.8 % (11.5-14.5); WHITE BLOOD COUNT 3.1 K/uL (4.8-10.8)
[2017-11-27 07:00] LABS: ALBUMIN 2.9 g/dL (3.5-5.0); CALCIUM 6.5 mg/dL (8.4-10.2)
--- NOTE | 2017-11-27 08:12 | CARD ---
APPROVED REPORT EKG Measurement Heart [id number] <Conclusion> Normal sinus rhythm Rightward axis Nonspecific ST and T wave abnormality Prolonged QT Abnormal ECG
--- NOTE | 2017-11-27 11:55 | CP.CCUPN ---
CCU Subjective - Physician Review Subjective (Free Text): Awake and interactive with at the bedside. Other Vitals and I/Os reviewed. Last 24H I/Os = 2500/ 550 ml. T max was 100.8 F on admission, highest over the past 24H. ROS: No other pertinent negs or positives on 10+ system review. PMSFH: All other Nursing and physician documentation reviewed to date; no new pertinent info noted relevant to current medical problems. EXAM- HEENT: no icterus, no gaze preference, pupils equal and reactive, no icterus NECK: No JVD, supple, carotids equal upstroke bilat/no bruits CHEST: decreased BS bases, no wheezes audible. R mid- chest [place] noted, no tenderness nor erythema. HEART: regular distant, S1S2, no rubs. ABD: soft, +distention, no tympany, + ascites; no palp tenderness, BS hypoactive. EXT: trace edema bilat. No peripheral/ digital cyanosis, no calf tenderness or palpable cords, distal pulses intact and symmetrical. NEURO: no gross focal motor deficits SKIN: no rashes, warm and dry. LABS: WBC= 3.1 HGB= 9.9 PLTs= 203K Na= 141 K= 2.8 CL= 100 HCO3= 22 BUN/Cr= 46/2.4 BS= 107 Mag = 1.4 Phos = 3.9 TSH= 38.00 CXR 11/26/17: (my interp)_ clear bilaterally IMPRESSION / MAJOR PROBLEMS NOW: 1. Severe Sepsis with mild shock, r/o bacteremia 2. Metastatic Colon Ca undergoing Chemotx 3. Azotemia / Dehydration 4. Chronic Disease Anemia 5. Diarrhea 2 recent Chemotx PLAN: 1. Ongoing IVF hydration, and K supplementation. 2. Replete Magnesium 3. Empiric abx coverage with Vanco / Zosyn. No organisms identified yet, ensure Lab has samples of ordered Blood and urine cultures. Watch WBC counts, had Chemotx almost 2 weeks ago, abilio point for WBCs may still have not been reached yet; HemOnc eval for consideration for GCSF. 4. Lactate levels have normalized. Check free T4 levels. H/o Hypothyroidism, no TRH-meds noted. CCU Objective - Vital Signs / Intake & Output Vital Signs (Last 4 hours): Vital Signs Temp Pulse Resp BP Pulse Ox 11/27/17 08:00 98.1 F 74 25 H 107/59 L 96 Intake and Output (Last 8hrs): Intake & Output 11/26/17 11/27/17 11/27/17 22:59 06:59 14:59 Intake Total 100 2400 200 Output Total 550 Balance 100 1850 200 Weight 100 lb Intake: IV 100 2000 Intake, Piggyback 400 200 Output: Urine 550 Urethral (Wilson) 550 - Physical Exam Pupils: Positive for: PERRL
[2017-11-27] MEDS: Sodium Chloride 0.9% 1,000 ML IV SCH (12:13)
[2017-11-27] MEDS: [UNRECOGNIZED DRUG - OTHER] PO SCH ×3 (12:13→16:32)
[2017-11-27] MEDS ORDERED: Levothyroxine 88 MCG TAB PO ONE (18:00)
--- NOTE | 2017-11-27 19:05 | CP.PCM.PN ---
Subjective - Date & Time of Evaluation Date of Evaluation: 11/27/17 Time of Evaluation: 19:00 - Subjective Subjective: i d note patient examined ,chart reviewed history obtained mostly from chart agreec vanco/zosyn added flagyl for diarrhea Objective - Vital Signs/Intake and Output Vital Signs (last 24 hours): Temp Pulse Resp BP Pulse Ox 97.0 F L 80 21 110/71 96 11/27/17 16:00 11/27/17 18:00 11/27/17 18:00 11/27/17 18:00 11/27/17 18:00 Intake and Output: 11/27/17 11/27/17 06:59 18:59 Intake Total 2500 1750 Output Total 550 500 Balance 1950 1250 - Medications Medications: Current Medications Acetaminophen (Tylenol 325mg Tab) 650 mg PO Q6H PRN PRN Reason: Pain, Mild (1-3) Acetaminophen (Tylenol 325mg Tab) 650 mg PO Q6H PRN PRN Reason: Fever >100.4 F Heparin Sodium (Porcine) (Heparin) 5,000 units SC Q8 JASMINE PRN Reason: Protocol Last Admin: 11/27/17 16:32 Dose: 5,000 units Home Med (Maprotiline Hcl [Maprotiline Hcl]) 25 mg PO Q8 JASMINE Last Admin: 11/27/17 16:32 Dose: Not Given Hydromorphone HCl (Dilaudid) 0.5 mg IVP Q6H PRN PRN Reason: Pain, severe (8-10) Potassium Chloride/Sodium Chloride (Potassium Chl 20 Meq In Ns) 1,000 mls @ 100 mls/hr IV .Q10H JASMINE Last Admin: 11/27/17 16:49 Dose: 100 mls/hr Piperacillin Sod/Tazobactam (Sod 2.25 gm/ Sodium Chloride) 100 mls @ 100 mls/ hr IVPB Q6 JASMINE PRN Reason: Protocol Last Admin: 11/27/17 16:36 Dose: 100 mls/hr Vancomycin HCl 500 mg/ Sodium (Chloride) 100 mls @ 100 mls/hr IVPB Q12H JASMINE PRN Reason: Protocol Last Admin: 11/27/17 09:14 Dose: 100 mls/hr Metronidazole 250 mg/ (Miscellaneous) 50 mls @ 50 mls/hr IVPB Q8 JASMINE PRN Reason: Protocol Levothyroxine Sodium (Synthroid) 88 mcg PO DAILY@0630 JASMINE Ondansetron HCl (Zofran Inj) 4 mg IVP Q6H PRN PRN Reason: Nausea/Vomiting - Labs Labs: 11/27/17 04:40 11/27/17 04:40 PT 16.0 Seconds (9.8-13.1) H 11/27/17 04:40 INR 1.4 (0.9-1.2) H 11/27/17 04:40 APTT 31.4 Seconds (25.6-37.1) 11/27/17 04:40
[2017-11-27] MEDS: metroNIDAZOLE 500mg/100ml NS 250 MG in Premixed IV 1 EA IVPB SCH (21:42)
--- NOTE | 2017-11-27 22:30 | CP.PCM.CON ---
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 The patient is currently confused and I am unable to obtain a history from her. Per her she has had poor appetite and not taking in much PO. She became more fatigued and weak which prompted him to bring her to the ER. Past medical, surgical, family, social history cannot be obtained from the patient. Allergies: Per documentation sulfa Review of systems cannot be obtained. Past Patient History - Infectious Disease Hx of Infectious Diseases: None - Past Medical History & Family History Past Medical History?: Yes - Past Social History Drugs: Denies - CARDIAC Other/Comment: palpitations - PULMONARY Hx Asthma: Yes Hx Bronchitis: Yes Hx Chronic Obstructive Pulmonary Disease (COPD): Yes Hx Emphysema: Yes - NEUROLOGICAL Hx Neurological Disorder: No - HEENT Hx HEENT Problems: No - RENAL Hx Chronic Kidney Disease: No - ENDOCRINE/METABOLIC Hx Hypothyroidism: Yes - HEMATOLOGICAL/ONCOLOGICAL Hx Blood Disorders: Yes Hx Cancer: Yes (COLON CA MET TO LIVER) - INTEGUMENTARY Hx Dermatological Problems: No - MUSCULOSKELETAL/RHEUMATOLOGICAL Hx Musculoskeletal Disorders: No - GASTROINTESTINAL Hx Gastrointestinal Disorders: Yes - GENITOURINARY/GYNECOLOGICAL Hx Genitourinary Disorders: No - PSYCHIATRIC Hx Anxiety: Yes - SURGICAL HISTORY Hx Surgeries: Yes Hx Hysterectomy: Yes (20YRS AGO) Other/Comment: BILATERAL EAR SURGERY, AT 20YRS OF AGE. LIVER BX 08/2016 - ANESTHESIA Hx Anesthesia: Yes Hx Anesthesia Reactions: No Hx Malignant Hyperthermia: No Meds Allergies/Adverse Reactions: Allergies Allergy/AdvReac Type Severity Reaction Status Date / Time Sulfa (Sulfonamide Allergy RASH Verified 04/18/17 11:20 Antibiotics) - Medications Medications: Current Medications Acetaminophen (Tylenol 325mg Tab) 650 mg PO Q6H PRN PRN Reason: Pain, Mild (1-3) Acetaminophen (Tylenol 325mg Tab) 650 mg PO Q6H PRN PRN Reason: Fever >100.4 F Heparin Sodium (Porcine) (Heparin) 5,000 units SC Q8 [facility] PRN Reason: Protocol Last Admin: 11/27/17 16:32 Dose: 5,000 units Home Med (Maprotiline Hcl [Maprotiline Hcl]) 25 mg PO Q8 [facility] Last Admin: 11/27/17 16:32 Dose: Not Given Hydromorphone HCl (Dilaudid) 0.5 mg IVP Q6H PRN PRN Reason: Pain, severe (8-10) Potassium Chloride/Sodium Chloride (Potassium Chl 20 Meq In Ns) 1,000 mls @ 100 mls/hr IV .Q10H [facility] Last Admin: 11/27/17 16:49 Dose: 100 mls/hr Piperacillin Sod/Tazobactam (Sod 2.25 gm/ Sodium Chloride) 100 mls @ 100 mls/ hr IVPB Q6 [facility] PRN Reason: Protocol Last Admin: 11/27/17 21:43 Dose: 100 mls/hr Vancomycin HCl 500 mg/ Sodium (Chloride) 100 mls @ 100 mls/hr IVPB Q12H [facility] PRN Reason: Protocol Last Admin: 11/27/17 20:54 Dose: 100 mls/hr Metronidazole 250 mg/ (Miscellaneous) 50 mls @ 50 mls/hr IVPB Q8 [facility] PRN Reason: Protocol Last Admin: 11/27/17 21:42 Dose: 50 mls/hr Levothyroxine Sodium (Synthroid) 88 mcg PO DAILY@0630 [facility] Ondansetron HCl (Zofran Inj) 4 mg IVP Q6H PRN PRN Reason: Nausea/Vomiting Physical Exam - Head Exam Head Exam: ATRAUMATIC - Eye Exam Eye Exam: Normal appearance - ENT Exam ENT Exam: Mucous Membranes Dry - Respiratory Exam Respiratory Exam: NORMAL BREATHING PATTERN - Cardiovascular Exam Cardiovascular Exam: +S1, +S2 - GI/Abdominal Exam GI & Abdominal Exam: Normal Bowel Sounds - Extremities Exam Extremities exam: Positive for: normal inspection - Neurological Exam Neurological exam: Altered Results - Vital Signs Recent Vital Signs: Last Vital Signs Temp 98.2 F 11/27/17 20:00 Pulse 82 11/27/17 22:00 Resp 22 11/27/17 22:00 BP 136/74 11/27/17 22:00 Pulse Ox 100 11/27/17 22:00 - Labs Result Diagrams: 11/27/17 04:40 11/27/17 04:40 Labs: Laboratory Results - last 24 hr 11/26/17 11/27/17 11/27/17 22:20 04:40 04:40 WBC 3.1 L RBC 3.07 L Hgb 9.9 L Hct 29.3 L MCV 95.4 MCH 32.2 H MCHC 33.8 RDW 16.8 H Plt Count 203 D MPV 8.7 Neut % (Auto) 80.4 H Lymph % (Auto) 14.0 L Love % (Auto) 5.4 Eos % (Auto) 0.1 Baso % (Auto) 0.1 Neut # (Auto) 2.5 Lymph # (Auto) 0.4 L Love # (Auto) 0.2 Eos # (Auto) 0.0 Baso # (Auto) 0.0 PT INR APTT Sodium 139 141 Potassium 2.8 L 3.9 Chloride 95 L 100 Carbon Dioxide 23 22 Anion Gap 24 H 23 H BUN 45 H 46 H Creatinine 2.9 H 2.4 H Est GFR ( Amer) 20 25 Est GFR (Non-Af Amer) 17 21 Random Glucose 127 H 107 H Calcium 6.7 L 6.5 L Phosphorus 3.9 Magnesium 1.4 L Total Bilirubin 1.5 H AST 62 H D ALT 50 Alkaline Phosphatase 149 H D Total Protein 6.0 L Albumin 2.9 L D Globulin 3.1 Albumin/Globulin Ratio 1.0 TSH 3rd Generation 38.00 H 11/27/17 04:40 WBC RBC Hgb Hct MCV MCH MCHC RDW Plt Count MPV Neut % (Auto) Lymph % (Auto) Love % (Auto) Eos % (Auto) Baso % (Auto) Neut # (Auto) Lymph # (Auto) Love # (Auto) Eos # (Auto) Baso # (Auto) PT 16.0 H INR 1.4 H APTT 31.4 Sodium Potassium Chloride Carbon Dioxide Anion Gap BUN Creatinine Est GFR ( Amer) Est GFR (Non-Af Amer) Random Glucose Calcium Phosphorus Magnesium Total Bilirubin AST ALT Alkaline Phosphatase Total Protein Albumin Globulin Albumin/Globulin Ratio TSH 3rd Generation Assessment & Plan (1) Anemia Assessment and Plan: chronic disease from cancer anemia of chemotherapy transfusion support PRN Status: Acute (2) Leukopenia Assessment and Plan: no current neutropenia s/p GCSF support Status: Acute (3) Colon cancer Assessment and Plan: stage IV liver metastasis CT C/A/P with PO + IV contrast once renal function recovers to evaluate extent of disease will check CEA outpatient treatment Thank you for this interesting consult. Status: Acute
[2017-11-28] MEDS: [UNRECOGNIZED DRUG - OTHER] PO SCH ×4 (00:26→16:49)
[2017-11-28] MEDS: metroNIDAZOLE 500mg/100ml NS 250 MG in Premixed IV 1 EA IVPB SCH ×3 (00:39→16:48)
--- NOTE | 2017-11-28 01:07 | CON ---
INFECTIOUS DISEASE CONSULTATION DATE: HISTORY OF PRESENT ILLNESS: The patient is a 62-year-old female who has colonic CA stage 4 with liver mets and is on chemotherapy for the last 6 months. Apparently, she received a last bout of chemo on 11/14/2017 and has a history also of hypothyroidism, anxiety, and COPD. She was admitted via the emergency room where she reported with generalized weakness and had poor intake over the last week and has not eaten for 3 days. The patient also had vomiting and has been having diarrhea 3 to 4 times a day also for the last week, which apparently subsided. There has been no fever, shortness of breath, or cough. The patient is quite lethargic and did not answer any of my questions, and it was quite difficult to get any response for another than to push me when I listen to her heart and lungs. ALLERGIES: SHE IS ALLERGIC TO SULFA. PHYSICAL EXAMINATION: HEENT: conj:pale NECK: Supple. LUNGS: Decreased breath sounds bilaterally. HEART: Regular sinus rhythm. ABDOMEN: Soft with positive bowel sounds. LABORATORY DATA: WBC of 3.1, she has 11 bands, and 93 polys. Her original serum lactate was 4.4, it is now 1.2. Cultures are pending. GFR is 21 and her creatinine is 2.4, originally was 3.4 and her liver function tests are elevated. DIAGNOSES: Sepsis, metastatic colonic disease with metastasis to liver, and been on chemotherapy for 6 months. PLAN: At present time, I agree with fluid therapy and we will agree with using vancomycin and Zosyn. I also added Flagyl for the diarrhea even know it seems to subsided. I have ordered a vancomycin trough level. Connor Crespo MD [facility]
[2017-11-28 05:25] LABS: HEMOGLOBIN 9.7 g/dL (12.0-16.0); MEAN CELL VOLUME 96.9 fl (81.0-99.0); MEAN CORPUSCULAR HEMOGLOBIN 32.2 pg (27.0-31.0); MEAN CORPUSCULAR HGB CONC 33.3 g/dL (33.0-37.0); RED CELL DISTRIBUTION WIDTH 17.4 % (11.5-14.5); WHITE BLOOD COUNT 2.7 K/uL (4.8-10.8)
[2017-11-28 05:46] LABS: BLOOD UREA NITROGEN 31 mg/dl (7-17); GFR AFRICAN-AMERICAN > 60; GFR NON-AFRICAN AMERICAN 51; T4 < 0.405 ug/dl (5.5-11.0)
[2017-11-28] MEDS: Levothyroxine 88 MCG TAB PO SCH (06:27)
--- NOTE | 2017-11-28 07:21 | CP.PCM.PN ---
Subjective - Date & Time of Evaluation Date of Evaluation: 11/28/17 Time of Evaluation: 07:35 - Subjective Subjective: pt seen and examined at bedside. Pt able to minimally respond with unclear verbal communication and movement of upper extremities. Pt was seen benefitting from high flow oxygen. Objective - Vital Signs/Intake and Output Vital Signs (last 24 hours): Temp Pulse Resp BP Pulse Ox 98.1 F 89 29 H 103/68 98 11/28/17 04:00 11/28/17 06:00 11/28/17 06:00 11/28/17 06:00 11/28/17 06:00 Intake and Output: 11/28/17 11/28/17 06:59 18:59 Intake Total 1060 Output Total 500 Balance 560 - Medications Medications: Current Medications Acetaminophen (Tylenol 325mg Tab) 650 mg PO Q6H PRN PRN Reason: Pain, Mild (1-3) Acetaminophen (Tylenol 325mg Tab) 650 mg PO Q6H PRN PRN Reason: Fever >100.4 F Heparin Sodium (Porcine) (Heparin) 5,000 units SC Q8 [facility] PRN Reason: Protocol Last Admin: 11/28/17 00:20 Dose: 5,000 units Home Med (Maprotiline Hcl [Maprotiline Hcl]) 25 mg PO Q8 [facility] Last Admin: 11/28/17 00:27 Dose: Not Given Hydromorphone HCl (Dilaudid) 0.5 mg IVP Q6H PRN PRN Reason: Pain, severe (8-10) Potassium Chloride/Sodium Chloride (Potassium Chl 20 Meq In Ns) 1,000 mls @ 100 mls/hr IV .Q10H [facility] Last Admin: 11/27/17 16:49 Dose: 100 mls/hr Piperacillin Sod/Tazobactam (Sod 2.25 gm/ Sodium Chloride) 100 mls @ 100 mls/ hr IVPB Q6 [facility] PRN Reason: Protocol Last Admin: 11/28/17 03:00 Dose: 100 mls/hr Vancomycin HCl 500 mg/ Sodium (Chloride) 100 mls @ 100 mls/hr IVPB Q12H [facility] PRN Reason: Protocol Last Admin: 11/27/17 20:54 Dose: 100 mls/hr Metronidazole 250 mg/ (Miscellaneous) 50 mls @ 50 mls/hr IVPB Q8 [facility] PRN Reason: Protocol Last Admin: 11/28/17 00:39 Dose: 50 mls/hr Levothyroxine Sodium (Synthroid) 88 mcg PO DAILY@0630 [facility] Last Admin: 11/28/17 06:27 Dose: 88 mcg Ondansetron HCl (Zofran Inj) 4 mg IVP Q6H PRN PRN Reason: Nausea/Vomiting - Labs Labs: 11/28/17 04:20 11/28/17 04:20 PT 16.0 Seconds (9.8-13.1) H 11/27/17 04:40 INR 1.4 (0.9-1.2) H 11/27/17 04:40 APTT 31.4 Seconds (25.6-37.1) 11/27/17 04:40 - Constitutional Appears: Well, No Acute Distress - Eye Exam Eye Exam: EOMI - Neck Exam Neck Exam: Full ROM - Respiratory Exam Respiratory Exam: Clear to Ausculation Bilateral, NORMAL BREATHING PATTERN. absent: Wheezes - Cardiovascular Exam Cardiovascular Exam: +S1, +S2 - GI/Abdominal Exam GI & Abdominal Exam: Soft, Normal Bowel Sounds. absent: Tenderness - Neurological Exam Neurological Exam: Alert (delayed), Awake Assessment and Plan - Assessment and Plan (Free Text) Plan: 62 yo F PMhx/o Colon Ca stage 4 with mets to liver, on chemotheraphy, COPD, Anxiety, Hypothyroidism admitted in ICU for Severe sepsis, Dehydration, MADDI, Colon Ca with liver mets Severe Sepsis - s/p IV Vancomycin, zosyn due to possible line infection. -ID: Dr. Crespo: recommendations appreciated: continue vanc (day 3; Trough: 11.8), zosyn (day 3; increased dosing via updated cr clearance), Added Flagyl ( day2) -blood cx: NG 24 hr -urine cx: NG -stool cx: pending -IVF: Kcl: 100 mls/hr -ECHO: EF 50-55%; LV function normal Colon Ca stage 4 with metastasis to liver -colon biopsy 08/2016 infiltrative adenocarcinoma moderate differentiated -liver biopsy 07/2016 metastatic adenocarcinoma consistent with colonic primary -Ct Abd reviewed from 05/23/2017: liver metastatic lesion -on chemotherapy for the last 6 months( 20-22 session aprox): last chemotherapy 11/14/17 -On f/u by Dr Wright: recommendations appreciated: recommend CT C/A/P with PO IV contrast when renal function recovers; CEA: 53.1 Dehydration/Azotemia -Secondary to Low oral intake over the last 6 days( malignancy), vomiting and diarrhea -UA: hyaline cast -s/p IV fluids ED -IVF: Kcl: 100 mls/hr Hypokalemia -K 2.6; f/u: 11/28: 3.6 -kcl 20 meq and D5W at 100 mls/hr -f/u swallow test Anemia -Dr. Wright: recommendations appreciated -chronic disease from Cancer, anemia from chemo -Transfusion support -s/p GCSF support -f/u CBC with diff MADDI Prerenal secondary to dehydration -BUN/Cr 42/3.4 GFR: 14; f/u 11/28: 31/1.1; 51; improving -s/p IV fluids ED -kcl 20 meq and D5W at 100 mls/hr COPD -Hx/o heavy smoker for 40 years 1 PPD -Not on treatment Hypothyroidism -Levothyroxin 40mcg IVP daily -TSH: 25.4, T4: <0.405, T3: 0.17 Nutrition: -consider NGT DVT Prophylaxis Heparin 5000 sc TID -SCD
[2017-11-28] MEDS: Potassium Chl 20 mEq in NS 1,000 ML IV SCH (10:00)
[2017-11-28] MEDS ORDERED: Magnesium Sulfate 1 gm in D5W 1 GM/100 ML BAG IVPB ONE (11:07)
--- NOTE | 2017-11-28 11:13 | CP.CCUPN ---
CCU Subjective - Physician Review Subjective (Free Text): Lethargic today, at the bedside. Placed on HFNC due to shallow respirations. Other Vitals and I/Os reviewed. Last 24H I/Os = 2500/ 550 ml. T max was 100.8 F on admission, highest over the past 24H. ROS: No other pertinent negs or positives on 10+ system review unobtainable 2 lethargy PMSFH: All other Nursing and physician documentation reviewed to date; no new pertinent info noted relevant to current medical problems. EXAM- HEENT: no icterus, no gaze preference, pupils equal and reactive, no icterus NECK: No JVD, supple, carotids equal upstroke bilat/no bruits CHEST: decreased BS bases, no wheezes audible. R mid- chest [place] noted, no tenderness nor erythema. HEART: regular distant, S1S2, no rubs. ABD: soft, +distention, no tympany, + ascites; no palp tenderness, BS hypoactive. EXT: trace edema bilat. No peripheral/ digital cyanosis, no calf tenderness or palpable cords, distal pulses intact and symmetrical. NEURO: no gross focal motor deficits SKIN: no rashes, warm and dry. LABS: WBC= 2.7 HGB= 9.7 PLTs= 175K Na= 149 K= 3.6 CL= 109 HCO3= 23 BUN/Cr= 31/1.1 BS= 97 TSH= 25 / T4= 0.04 Aniya= 9 ECHO results pending IMPRESSION / MAJOR PROBLEMS NOW: 1. Severe Sepsis with mild shock, r/oed bacteremia 2. Metastatic Colon Ca undergoing Chemotx 3. Azotemia / Dehydration 4. Chronic Disease Anemia 5. Diarrhea 2 recent Chemotx PLAN: 1. Ongoing IVF hydration, and K supplementation. 2. Replete Magnesium. 3. Empiric abx coverage with Vanco / Zosyn. Watch WBC counts, had Chemotx almost 2 weeks ago, abilio point for WBCs may still have not been reached yet; HemOnc eval for consideration for GCSF. 4. H/o Hypothyroidism, no THR-meds noted at home, started on Synthroid by FP team. 5. Would consider NGT for enteral nutritional support. No indication for TPN. Needs free water administration too, to prevent worsening hypernatremia. Change fluid components today. 6. Clarify Advance Directives. On HFNC, if becomes more hypoxic, will need MV support. Too lethargic for BiPAP. CCU Objective - Vital Signs / Intake & Output Vital Signs (Last 4 hours): Vital Signs Temp Pulse Resp BP Pulse Ox 11/28/17 10:00 86 21 106/79 96 11/28/17 08:00 98.2 F 97 H 16 130/58 L 94 L 11/28/17 07:55 21 Intake and Output (Last 8hrs): Intake & Output 11/27/17 11/28/17 11/28/17 22:59 06:59 14:59 Intake Total 1950 660 250 Output Total 500 500 Balance 1450 160 250 Weight 115 lb Intake: IV 1750 300 Intake, Piggyback 200 250 250 Oral 0 0 Tube Feeding 110 Output: Urine 500 500 Urethral (Wilson) 500 500 Other: # Bowel Movements 0
--- NOTE | 2017-11-28 12:02 | CARD ---
APPROVED REPORT EXAM: Two-dimensional and M-mode echocardiogram with Doppler and color Doppler. Other Information Quality : AverageRhythm : NSR Technically limited study due to Limited Window for M Mode Study INDICATION Dyspnea Peripheral Edema 2D DIMENSIONS IVSd0.64 (0.7-1.1cm)LVDd4.14 (3.9-5.9cm) PWd0.94 (0.7-1.1cm)IVSs0.96 (0.8-1.2cm) LVDs3.06 (2.5-4.0cm)FS (%) 26.0 % PWs0.89 (0.8-1.2cm) M-Mode DIMENSIONS Left Atrium (MM)3.41 (2.5-4.0cm)Aortic Root2.68 (2.2-3.7cm) Aortic Cusp Exc.1.94 (1.5-2.0cm) Mitral Valve MV E Hjtbftbw55.2cm/sMV DECEL [id number] A Tvcoolnm52.1cm/s MV GZI20dxG/A ratio1.1MVA (PHT)3.74cm2 TDI Lateral E' Peak V11.08cm/sMedial E' Peak V8.15cm/sE/Lateral E'5.3 E/Medial E'7.1 LEFT VENTRICLE The left ventricle is normal size. There is normal left ventricular wall thickness. The left ventricular function is normal. The left ventricular ejection fraction is within the normal range. The Ejection Fraction is 50-55%. There is normal LV segmental wall motion. The left ventricular diastolic function is normal. RIGHT VENTRICLE The right ventricle is normal size. The right ventricular systolic function is normal. ATRIA The left atrium size is normal. The right atrium size is normal. AORTIC VALVE The aortic valve is normal in structure. No aortic regurgitation is present. There is no aortic valvular stenosis. MITRAL VALVE The mitral valve is normal in structure. There is no mitral valve stenosis. There is no mitral valve regurgitation noted. TRICUSPID VALVE The tricuspid valve is normal in structure. There is no tricuspid valve regurgitation noted. PULMONIC VALVE The pulmonary valve is normal in structure. There is no pulmonic valvular regurgitation. GREAT VESSELS The aortic root is normal in size. The IVC is normal in size and collapses >50% with inspiration. PERICARDIAL EFFUSION The pericardium appears normal. <Conclusion> The left ventricle is normal size. The left ventricular function is normal. The left ventricular ejection fraction is within the normal range. The Ejection Fraction is 50-55%.
[2017-11-28] MEDS: Potassium Chl 20mEq & D5W 1,000 ML IV SCH ×2 (12:28→20:29)
--- NOTE | 2017-11-28 12:35 | CP.PCM.PN ---
Subjective - Date & Time of Evaluation Date of Evaluation: 11/28/17 Time of Evaluation: 11:30 - Subjective Subjective: Confused Objective - Vital Signs/Intake and Output Vital Signs (last 24 hours): Temp Pulse Resp BP Pulse Ox 98.1 F 101 H 24 138/74 92 L 11/28/17 12:00 11/28/17 12:00 11/28/17 12:00 11/28/17 12:00 11/28/17 12:00 Intake and Output: 11/28/17 11/28/17 06:59 18:59 Intake Total 1060 350 Output Total 500 Balance 560 350 - Medications Medications: Current Medications Acetaminophen (Tylenol 325mg Tab) 650 mg PO Q6H PRN PRN Reason: Pain, Mild (1-3) Acetaminophen (Tylenol 325mg Tab) 650 mg PO Q6H PRN PRN Reason: Fever >100.4 F Heparin Sodium (Porcine) (Heparin) 5,000 units SC Q8 [facility] PRN Reason: Protocol Last Admin: 11/28/17 10:10 Dose: 5,000 units Home Med (Maprotiline Hcl [Maprotiline Hcl]) 25 mg PO Q8 [facility] Last Admin: 11/28/17 10:10 Dose: 25 mg Hydromorphone HCl (Dilaudid) 0.5 mg IVP Q6H PRN PRN Reason: Pain, severe (8-10) Piperacillin Sod/Tazobactam (Sod 2.25 gm/ Sodium Chloride) 100 mls @ 100 mls/ hr IVPB Q6 [facility] PRN Reason: Protocol Last Admin: 11/28/17 10:12 Dose: 100 mls/hr Vancomycin HCl 500 mg/ Sodium (Chloride) 100 mls @ 100 mls/hr IVPB Q12H [facility] PRN Reason: Protocol Last Admin: 11/28/17 10:11 Dose: 100 mls/hr Metronidazole 250 mg/ (Miscellaneous) 50 mls @ 50 mls/hr IVPB Q8 [facility] PRN Reason: Protocol Last Admin: 11/28/17 10:08 Dose: 50 mls/hr Potassium Chloride/Dextrose (Potassium Chl 20 Meq In D5w) 1,000 mls @ 100 mls/ hr IV .Q10H [facility] Stop: 11/29/17 11:10 Last Admin: 11/28/17 12:28 Dose: 100 mls/hr Levothyroxine Sodium (Synthroid) 88 mcg PO DAILY@0630 [facility] Last Admin: 11/28/17 06:27 Dose: 88 mcg Levothyroxine Sodium (Synthroid) 40 mcg IVP DAILY [facility] Ondansetron HCl (Zofran Inj) 4 mg IVP Q6H PRN PRN Reason: Nausea/Vomiting - Labs Labs: 11/28/17 04:20 11/28/17 04:20 PT 16.0 Seconds (9.8-13.1) H 11/27/17 04:40 INR 1.4 (0.9-1.2) H 11/27/17 04:40 APTT 31.4 Seconds (25.6-37.1) 11/27/17 04:40 - Head Exam Head Exam: ATRAUMATIC - Eye Exam Eye Exam: Normal appearance - ENT Exam ENT Exam: Mucous Membranes Dry - Respiratory Exam Respiratory Exam: NORMAL BREATHING PATTERN - Cardiovascular Exam Cardiovascular Exam: +S1, +S2 - GI/Abdominal Exam GI & Abdominal Exam: Normal Bowel Sounds Assessment and Plan (1) Anemia Assessment & Plan: chronic disease and chemotherapy effect transfusion support PRN Status: Acute (2) Leukopenia Assessment & Plan: check differential with cbc daily Status: Acute (3) Colon cancer Assessment & Plan: stage IV CEA at baseline repeat imaging once renal function improved Status: Acute
[2017-11-28] MEDS ORDERED: Piperacillin/Tazobact 3.375 GM in Sodium Chloride 0.9% 100 ML IVPB SCH (13:48)
[2017-11-28] MEDS: Piperacillin/Tazobact 3.375 GM in Sodium Chloride 0.9% 100 ML IVPB SCH ×2 (16:50→22:00)
--- NOTE | 2017-11-28 18:58 | CP.PCM.PN ---
Subjective - Date & Time of Evaluation Date of Evaluation: 11/27/17 Time of Evaluation: 07:30 - Subjective Subjective: Pt. seen at bedside at ICU. Pt. asleep but responsive to voice. Overnight events reviewed. Pt. with no complaints at this time. On ROS, pt. does state she feels "tired," and "weak." Objective - Vital Signs/Intake and Output Vital Signs (last 24 hours): Temp Pulse Resp BP Pulse Ox 98.2 F 81 20 110/64 98 11/28/17 16:00 11/28/17 18:00 11/28/17 18:00 11/28/17 18:00 11/28/17 18:00 Intake and Output: 11/28/17 11/28/17 06:59 18:59 Intake Total 1060 1700 Output Total 500 600 Balance 560 1100 - Medications Medications: Current Medications Acetaminophen (Tylenol 325mg Tab) 650 mg PO Q6H PRN PRN Reason: Pain, Mild (1-3) Acetaminophen (Tylenol 325mg Tab) 650 mg PO Q6H PRN PRN Reason: Fever >100.4 F Heparin Sodium (Porcine) (Heparin) 5,000 units SC Q8 [facility] PRN Reason: Protocol Last Admin: 11/28/17 16:48 Dose: 5,000 units Home Med (Maprotiline Hcl [Maprotiline Hcl]) 25 mg PO Q8 [facility] Last Admin: 11/28/17 16:49 Dose: 25 mg Hydromorphone HCl (Dilaudid) 0.5 mg IVP Q6H PRN PRN Reason: Pain, severe (8-10) Vancomycin HCl 500 mg/ Sodium (Chloride) 100 mls @ 100 mls/hr IVPB Q12H [facility] PRN Reason: Protocol Last Admin: 11/28/17 10:11 Dose: 100 mls/hr Metronidazole 250 mg/ (Miscellaneous) 50 mls @ 50 mls/hr IVPB Q8 [facility] PRN Reason: Protocol Last Admin: 11/28/17 16:48 Dose: 50 mls/hr Potassium Chloride/Dextrose (Potassium Chl 20 Meq In D5w) 1,000 mls @ 100 mls/ hr IV .Q10H [facility] Stop: 11/29/17 11:10 Last Admin: 11/28/17 12:28 Dose: 100 mls/hr Piperacillin Sod/Tazobactam (Sod 3.375 gm/ Sodium Chloride) 100 mls @ 100 mls/ hr IVPB Q6 [facility] PRN Reason: Protocol Last Admin: 11/28/17 16:50 Dose: 100 mls/hr Levothyroxine Sodium (Synthroid) 88 mcg PO DAILY@0630 [facility] Last Admin: 11/28/17 06:27 Dose: 88 mcg Levothyroxine Sodium (Synthroid) 40 mcg IVP DAILY [facility] Ondansetron HCl (Zofran Inj) 4 mg IVP Q6H PRN PRN Reason: Nausea/Vomiting - Labs Labs: 11/28/17 04:20 11/28/17 04:20 PT 16.0 Seconds (9.8-13.1) H 11/27/17 04:40 INR 1.4 (0.9-1.2) H 11/27/17 04:40 APTT 31.4 Seconds (25.6-37.1) 11/27/17 04:40 - Constitutional Appears: Older Than Stated Age, Cachectic, Chronically Ill - Head Exam Head Exam: ATRAUMATIC, NORMOCEPHALIC - Eye Exam Eye Exam: PERRL - Respiratory Exam Respiratory Exam: Decreased Breath Sounds, Clear to Ausculation Bilateral - Cardiovascular Exam Cardiovascular Exam: REGULAR RHYTHM, +S1, +S2 - GI/Abdominal Exam GI & Abdominal Exam: Distended, Soft, Tenderness - Extremities Exam Extremities Exam: Normal Inspection. absent: Calf Tenderness - Neurological Exam Neurological Exam: Alert, Awake, Oriented x3 - Psychiatric Exam Psychiatric exam: Flat Affect - Skin Skin Exam: Pallor Assessment and Plan - Assessment and Plan (Free Text) Assessment: 62 y.o. female with metastatic colon cancer stage 4 admitted for dehydration and acute kidney injury with some improvement in renal function with poor prognosis. MADDI and Dehydration likely pre-renal in etiology with last chemotherapy session on November 14, 2017 1- Continue I.V. fluids 2- Repeat a.m. Labs SIRS 1- BCx, UCx pending 2- Will consider adjusting Antibiotic dose based on creatinine clearance- Continue I.V. Abx for now 3- I.D. consult Dr. Ferreira Metatstatic Colon Cacner with weakness and deconditioning 1- Heme-Oncology consult wit Dr. Wright 2- Family meeting planned to discuss prognosis and advance directives 3- Physical Therapy Hypokalemia- Resolved 1- K+ of 3.9 Hypothyroidism 1- Start patient on home dose of Levothyroxine 88mcg daily DVT prophylaxis 1- Heparin 5000 sc q8 [facility] 1- Post-menopausal Code Status 1- Full Code
[2017-11-29] MEDS: metroNIDAZOLE 500mg/100ml NS 250 MG in Premixed IV 1 EA IVPB SCH ×3 (00:01→16:11)
[2017-11-29] MEDS: [UNRECOGNIZED DRUG - OTHER] PO SCH ×3 (00:02→16:13)
[2017-11-29] MEDS: Piperacillin/Tazobact 3.375 GM in Sodium Chloride 0.9% 100 ML IVPB SCH ×4 (04:23→21:53)
[2017-11-29 05:34] LABS: BASO % 0.1 % (0.0-2.0); EOS % 0.1 % (0.0-4.0); HEMOGLOBIN 8.5 g/dL (12.0-16.0); LYMPH # 0.4 K/uL (1.0-4.3); LYMPH % 11.1 % (20.0-40.0); MEAN CELL VOLUME 96.8 fl (81.0-99.0); MEAN CORPUSCULAR HEMOGLOBIN 32.1 pg (27.0-31.0); MEAN CORPUSCULAR HGB CONC 33.1 g/dL (33.0-37.0); MEAN PLATELET VOLUME 8.4 fl (7.2-11.7); MONO # 0.1 K/uL (0.0-0.8); MONO % 3.6 % (0.0-10.0); NEUT # 3.1 K/uL (1.8-7.0); NEUT % 85.1 % (50.0-75.0); NRBC % 0.1 % (0.0-0.0); RBC 2.65 Mil/uL (3.80-5.20); RED CELL DISTRIBUTION WIDTH 17.1 % (11.5-14.5); WHITE BLOOD COUNT 3.7 K/uL (4.8-10.8)
[2017-11-29 05:45] LABS: ALB/GLOB RATIO 0.9 (1.0-2.1); ALBUMIN 2.4 g/dL (3.5-5.0); ALT/SGPT 47 U/L (9-52); AST/SGOT 33 U/L (14-36); BLOOD UREA NITROGEN 19 mg/dl (7-17); CALCIUM 7.1 mg/dL (8.4-10.2); GFR AFRICAN-AMERICAN > 60; GFR NON-AFRICAN AMERICAN > 60
--- NOTE | 2017-11-29 07:20 | CP.CCUPN ---
CCU Subjective - Physician Review Subjective (Free Text): Remains on HFNC at 100%, marked desaturation when off O2 briefly, denies any chest discomfort. Other Vitals and I/Os reviewed. Last 24H I/Os = 3260/1200 ml. ROS: No other pertinent negs or positives on 10+ system review unobtainable 2 lethargy PMSFH: All other Nursing and physician documentation reviewed to date; no new pertinent info noted relevant to current medical problems. EXAM- HEENT: no icterus, no gaze preference, pupils equal and reactive, no icterus NECK: No JVD, supple, carotids equal upstroke bilat/no bruits CHEST: decreased BS bases, no wheezes audible. R mid- chest [place] noted, no tenderness nor erythema. HEART: regular distant, S1S2, no rubs. ABD: soft, +distention, no tympany, + ascites; no palp tenderness, BS hypoactive. EXT: + edema bilat. No peripheral/ digital cyanosis, no calf tenderness or palpable cords, distal pulses intact and symmetrical. NEURO: no gross focal motor deficits SKIN: no rashes, warm and dry. LABS: WBC= 3.7 HGB= 8.5 PLTs= 148K Na= 153 K= 3.3 CL= 113 HCO3= 25 BUN/Cr= 19/0.8 TL=503 ECHO results reviewed, no unexpected findings. IMPRESSION / MAJOR PROBLEMS NOW: 1. Severe Sepsis with mild shock, r/oed bacteremia 2. Metastatic Colon Ca undergoing Chemotx 3. Azotemia / Dehydration with Hypernatremia 4. Chronic Disease Anemia 5. Diarrhea 2 recent Chemotx PLAN: 1. IVF components chnaged. 2. Supplemenatl K 3. Empiric abx coverage with Vanco / Zosyn /Flagyl. Watch WBC counts, had Chemotx almost 2 weeks ago, abilio point for WBCs may still have not been reached yet; HemOnc eval for consideration for GCSF. 4. Would consider NGT for enteral nutritional support. No indication for TPN. NGT would allow free water administration too, to prevent worsening hypernatremia. 5. H/o Hypothyroidism, no THR-meds noted at home, started on Synthroid by FP team. 6. On HFNC, if becomes more hypoxic, will need MV support. Hgh FiO2 requirememnts noted, and too lethargic for BiPAP. Check ABG 7. Full resuscitation status noted. CCU Objective - Vital Signs / Intake & Output Vital Signs (Last 4 hours): Vital Signs Temp Pulse Resp BP Pulse Ox 11/29/17 05:52 83 23 119/67 97 11/29/17 04:00 98.2 F 80 17 110/65 100 11/29/17 03:51 18 Intake and Output (Last 8hrs): Intake & Output 11/28/17 11/29/17 11/29/17 22:59 06:59 14:59 Intake Total 1960 950 Output Total 600 600 Balance 1360 350 Intake: IV 1500 700 Intake, Piggyback 450 200 Oral 10 50 Output: Urine 600 600 Urethral (Wilson) 600 600 Other: # Bowel Movements 1 1 Critical Care Progress Note - Nutrition Nutrition: Nutrition Category Date Time Status Liquid Diet [DIET] Diets 11/28/17 Breakfast Active
[2017-11-29] MEDS: Potassium Chl 20mEq & D5W 1,000 ML IV SCH ×2 (08:00→19:48)
[2017-11-29] MEDS: Potassium Chloride 20 mEq 100 ML IVPB SCH ×2 (09:29→13:14)
--- NOTE | 2017-11-29 09:51 | CP.PCM.PN ---
Addendum entered and electronically signed by Tez Sims MD 11/29/17 18:51: Pt seen at bedside. Repeats "I want to go home." Asked patient where she was: [facility]. Asked patient who to contact for her health decisions: her son , daughter, daughter in law, arnulfo. arnulfo arrived and I repeated the questions. Original Note: Subjective - Date & Time of Evaluation Date of Evaluation: 11/29/17 Time of Evaluation: 08:50 - Subjective Subjective: Pt seen and examined at bedside. Appears to be slightly more responsive, however , waxing and waning. Denies pain. Objective - Vital Signs/Intake and Output Vital Signs (last 24 hours): Temp Pulse Resp BP Pulse Ox 98.2 F 94 H 9 L 127/78 98 11/29/17 08:00 11/29/17 08:00 11/29/17 08:00 11/29/17 08:00 11/29/17 08:00 Intake and Output: 11/29/17 11/29/17 06:59 18:59 Intake Total 1560 Output Total 600 Balance 960 - Medications Medications: Current Medications Acetaminophen (Tylenol 325mg Tab) 650 mg PO Q6H PRN PRN Reason: Pain, Mild (1-3) Acetaminophen (Tylenol 325mg Tab) 650 mg PO Q6H PRN PRN Reason: Fever >100.4 F Heparin Sodium (Porcine) (Heparin) 5,000 units SC Q8 JASMINE PRN Reason: Protocol Last Admin: 11/29/17 09:38 Dose: 5,000 units Home Med (Maprotiline Hcl [Maprotiline Hcl]) 25 mg PO Q8 [facility] Last Admin: 11/29/17 09:43 Dose: 25 mg Hydromorphone HCl (Dilaudid) 0.5 mg IVP Q6H PRN PRN Reason: Pain, severe (8-10) Vancomycin HCl 500 mg/ Sodium (Chloride) 100 mls @ 100 mls/hr IVPB Q12H JASMINE PRN Reason: Protocol Last Admin: 11/29/17 09:44 Dose: 100 mls/hr Metronidazole 250 mg/ (Miscellaneous) 50 mls @ 50 mls/hr IVPB Q8 JASMINE PRN Reason: Protocol Last Admin: 11/29/17 09:30 Dose: 50 mls/hr Piperacillin Sod/Tazobactam (Sod 3.375 gm/ Sodium Chloride) 100 mls @ 100 mls/ hr IVPB Q6 JASMINE PRN Reason: Protocol Last Admin: 11/29/17 04:23 Dose: 100 mls/hr Potassium Chloride/Dextrose (Potassium Chl 20 Meq In D5w) 1,000 mls @ 80 mls/ hr IV .[id number] JASMINE Stop: 11/30/17 07:16 Potassium Chloride (Potassium Chloride 20 Meq/100 Ml) 100 mls @ 50 mls/hr IVPB Q2 JASMINE Stop: 11/29/17 11:59 Last Admin: 11/29/17 09:29 Dose: 50 mls/hr Levothyroxine Sodium (Synthroid) 88 mcg PO DAILY@0630 [facility] Last Admin: 11/28/17 06:27 Dose: 88 mcg Levothyroxine Sodium (Synthroid) 40 mcg IVP DAILY [facility] Ondansetron HCl (Zofran Inj) 4 mg IVP Q6H PRN PRN Reason: Nausea/Vomiting - Labs Labs: 11/29/17 04:20 11/29/17 04:20 PT 16.0 Seconds (9.8-13.1) H 11/27/17 04:40 INR 1.4 (0.9-1.2) H 11/27/17 04:40 APTT 31.4 Seconds (25.6-37.1) 11/27/17 04:40 - Constitutional Appears: Cachectic, Chronically Ill - Eye Exam Eye Exam: EOMI - Respiratory Exam Respiratory Exam: Clear to Ausculation Bilateral - Cardiovascular Exam Cardiovascular Exam: +S1, +S2, Murmur (systolic) - GI/Abdominal Exam GI & Abdominal Exam: Distended. absent: Tenderness - Neurological Exam Neurological Exam: Altered Assessment and Plan - Assessment and Plan (Free Text) Plan: 62 yo F PMhx/o Colon Ca stage 4 with mets to liver, on chemotheraphy, COPD, Anxiety, Hypothyroidism admitted in ICU for Severe sepsis, Dehydration, MADDI, Colon Ca with liver mets Severe Sepsis - s/p IV Vancomycin, zosyn due to possible line infection. -ID: Dr. Crespo: recommendations appreciated: continue vanc (day 4; Trough: 11.8), zosyn (day 4; increased dosing via updated cr clearance), Added Flagyl ( day3) -blood cx: NG 48 hr -urine cx: NG - MRSA cx: neg -stool cx: pending -IVF: Kcl & D5W: 100 mls/hr -ECHO: EF 50-55%; LV function normal -f/u ABG Colon Ca stage 4 with metastasis to liver -colon biopsy 08/2016 infiltrative adenocarcinoma moderate differentiated -liver biopsy 07/2016 metastatic adenocarcinoma consistent with colonic primary -Ct Abd reviewed from 05/23/2017: liver metastatic lesion -on chemotherapy for the last 6 months( 20-22 session aprox): last chemotherapy 11/14/17 -On f/u by Dr Wright: recommendations appreciated: recommend CT C/A/P with PO IV contrast when renal function recovers; CEA: 53.1 Dehydration/Azotemia -Secondary to Low oral intake over the last 6 days (malignancy), vomiting and diarrhea -UA: hyaline cast -s/p IV fluids ED -IVF: Kcl: 100 mls/hr Hypokalemia -K 2.6; f/u: 11/29: 3.3 -kcl 20 meq and D5W at 100 mls/hr -TIMBER SIZER OPERATOR eval: armando chopped/thin liquids Anemia -Dr. Wright: recommendations appreciated -chronic disease from Cancer, anemia from chemo -Transfusion support -s/p GCSF support -CBC with diff MADDI -Prerenal secondary to dehydration -BUN/Cr 42/3.4 GFR: 14; f/u 11/28: 31/1.1; 51; improving -s/p IV fluids ED -kcl 20 meq and D5W at 100 mls/hr COPD -Hx/o heavy smoker for 40 years 1 PPD -Not on treatment Hypothyroidism -Levothyroxin 40mcg IVP daily -TSH: 25.4, T4: <0.405, T3: 0.17 Nutrition: -consider NGT -TIMBER SIZER OPERATOR eval: armando chopped/thin liquids DVT Prophylaxis Heparin 5000 sc TID -SCD Family meeting with Ed, Angelita's , this morning. He reports that after confirming with their 3 children, he would like to establish DNR/DNI with comfort measures for her.
[2017-11-29 11:54] LABS: ABG ALLEN TEST YES; ARTERIAL BLOOD GAS HCO3 25.4 mmol/L (21-28); ARTERIAL BLOOD GAS HEMOGLOBIN 9.1 g/dL (11.7-17.4); ARTERIAL BLOOD GAS O2 CAPACITY 12.7 mL/dL (16-24); ARTERIAL BLOOD GAS O2 CONTENT 12.1 ML/dL (15-23); ARTERIAL BLOOD GAS O2 SAT 95.3 % (95-98); ARTERIAL BLOOD GAS PCO2 51 mm/Hg (35-45); ARTERIAL BLOOD GAS PH 7.33 (7.35-7.45); ARTERIAL BLOOD GAS PO2 64 mm/Hg (80-100); ARTERIAL BLOOD GAS TCO2 28.5 mmol/L (22-28)
--- NOTE | 2017-11-29 12:31 | CP.PCM.PN ---
Subjective - Date & Time of Evaluation Date of Evaluation: 11/29/17 Time of Evaluation: 12:00 - Subjective Subjective: Still periods of confusion but appears better today. Objective - Vital Signs/Intake and Output Vital Signs (last 24 hours): Temp Pulse Resp BP Pulse Ox 98.2 F 94 H 16 127/78 98 11/29/17 08:00 11/29/17 08:00 11/29/17 11:05 11/29/17 08:00 11/29/17 08:00 Intake and Output: 11/29/17 11/29/17 06:59 18:59 Intake Total 1560 Output Total 600 Balance 960 - Medications Medications: Current Medications Acetaminophen (Tylenol 325mg Tab) 650 mg PO Q6H PRN PRN Reason: Pain, Mild (1-3) Acetaminophen (Tylenol 325mg Tab) 650 mg PO Q6H PRN PRN Reason: Fever >100.4 F Heparin Sodium (Porcine) (Heparin) 5,000 units SC Q8 JASMINE PRN Reason: Protocol Last Admin: 11/29/17 09:38 Dose: 5,000 units Home Med (Maprotiline Hcl [Maprotiline Hcl]) 25 mg PO Q8 [facility] Last Admin: 11/29/17 09:43 Dose: 25 mg Hydromorphone HCl (Dilaudid) 0.5 mg IVP Q6H PRN PRN Reason: Pain, severe (8-10) Vancomycin HCl 500 mg/ Sodium (Chloride) 100 mls @ 100 mls/hr IVPB Q12H JASMINE PRN Reason: Protocol Last Admin: 11/29/17 09:44 Dose: 100 mls/hr Metronidazole 250 mg/ (Miscellaneous) 50 mls @ 50 mls/hr IVPB Q8 JASMINE PRN Reason: Protocol Last Admin: 11/29/17 09:30 Dose: 50 mls/hr Piperacillin Sod/Tazobactam (Sod 3.375 gm/ Sodium Chloride) 100 mls @ 100 mls/ hr IVPB Q6 JASMINE PRN Reason: Protocol Last Admin: 11/29/17 04:23 Dose: 100 mls/hr Potassium Chloride/Dextrose (Potassium Chl 20 Meq In D5w) 1,000 mls @ 80 mls/ hr IV .[id number] [facility] Stop: 11/30/17 07:16 Levothyroxine Sodium (Synthroid) 88 mcg PO DAILY@0630 [facility] Last Admin: 11/28/17 06:27 Dose: 88 mcg Levothyroxine Sodium (Synthroid) 40 mcg IVP DAILY [facility] Ondansetron HCl (Zofran Inj) 4 mg IVP Q6H PRN PRN Reason: Nausea/Vomiting - Labs Labs: 11/29/17 04:20 11/29/17 04:20 PT 16.0 Seconds (9.8-13.1) H 11/27/17 04:40 INR 1.4 (0.9-1.2) H 11/27/17 04:40 APTT 31.4 Seconds (25.6-37.1) 11/27/17 04:40 - Constitutional Appears: Cachectic - Head Exam Head Exam: ATRAUMATIC - Eye Exam Eye Exam: Normal appearance - ENT Exam ENT Exam: Mucous Membranes Dry - Respiratory Exam Respiratory Exam: NORMAL BREATHING PATTERN - Cardiovascular Exam Cardiovascular Exam: +S1, +S2 - GI/Abdominal Exam GI & Abdominal Exam: Normal Bowel Sounds Assessment and Plan (1) Anemia Assessment & Plan: chronic disease and chemotherapy transfusion support PRN Status: Acute (2) Leukopenia Assessment & Plan: no neutropenia mild, likely secondary to chemotherapy Status: Acute (3) Colon cancer Assessment & Plan: stage IV liver mets CEA at baseline repeat imaging once more stable Status: Acute
[2017-11-29] MEDS: Levothyroxine 100 mcg (0.1 mg) Inj IVP SCH (13:14)
--- NOTE | 2017-11-29 18:38 | CP.PCM.PN ---
Subjective - Date & Time of Evaluation Date of Evaluation: 11/29/17 Time of Evaluation: 18:35 - Subjective Subjective: I D NOTE RENAL STATUS IMPROVED CULTURES ARE NEGATIVE SO FAR CONTINUE PRESENT ANTIBIOTIC RX Objective - Vital Signs/Intake and Output Vital Signs (last 24 hours): Temp Pulse Resp BP Pulse Ox 99.0 F 96 H 18 115/66 100 11/29/17 16:00 11/29/17 16:00 11/29/17 16:00 11/29/17 16:00 11/29/17 16:00 Intake and Output: 11/29/17 11/29/17 06:59 18:59 Intake Total 1560 1090 Output Total 600 400 Balance 960 690 - Medications Medications: Current Medications Acetaminophen (Tylenol 325mg Tab) 650 mg PO Q6H PRN PRN Reason: Pain, Mild (1-3) Acetaminophen (Tylenol 325mg Tab) 650 mg PO Q6H PRN PRN Reason: Fever >100.4 F Heparin Sodium (Porcine) (Heparin) 5,000 units SC Q8 JASMINE PRN Reason: Protocol Last Admin: 11/29/17 16:12 Dose: 5,000 units Home Med (Maprotiline Hcl [Maprotiline Hcl]) 25 mg PO Q8 [facility] Last Admin: 11/29/17 16:13 Dose: 25 mg Hydromorphone HCl (Dilaudid) 0.5 mg IVP Q6H PRN PRN Reason: Pain, severe (8-10) Vancomycin HCl 500 mg/ Sodium (Chloride) 100 mls @ 100 mls/hr IVPB Q12H JASMINE PRN Reason: Protocol Last Admin: 11/29/17 09:44 Dose: 100 mls/hr Metronidazole 250 mg/ (Miscellaneous) 50 mls @ 50 mls/hr IVPB Q8 JASMINE PRN Reason: Protocol Last Admin: 11/29/17 16:11 Dose: 50 mls/hr Piperacillin Sod/Tazobactam (Sod 3.375 gm/ Sodium Chloride) 100 mls @ 100 mls/ hr IVPB Q6 JASMINE PRN Reason: Protocol Last Admin: 11/29/17 16:14 Dose: 100 mls/hr Potassium Chloride/Dextrose (Potassium Chl 20 Meq In D5w) 1,000 mls @ 80 mls/ hr IV .[id number] [facility] Stop: 11/30/17 07:16 Last Admin: 11/29/17 08:00 Dose: 80 mls/hr Levothyroxine Sodium (Synthroid) 88 mcg PO DAILY@0630 [facility] Last Admin: 11/28/17 06:27 Dose: 88 mcg Levothyroxine Sodium (Synthroid) 40 mcg IVP DAILY [facility] Last Admin: 11/29/17 13:14 Dose: 40 mcg Ondansetron HCl (Zofran Inj) 4 mg IVP Q6H PRN PRN Reason: Nausea/Vomiting - Labs Labs: 11/29/17 04:20 11/29/17 04:20 PT 16.0 Seconds (9.8-13.1) H 11/27/17 04:40 INR 1.4 (0.9-1.2) H 11/27/17 04:40 APTT 31.4 Seconds (25.6-37.1) 11/27/17 04:40
[2017-11-30] MEDS: metroNIDAZOLE 500mg/100ml NS 250 MG in Premixed IV 1 EA IVPB SCH ×3 (00:20→16:56)
[2017-11-30] MEDS: [UNRECOGNIZED DRUG - OTHER] PO SCH ×3 (00:21→16:47)
[2017-11-30] MEDS: Piperacillin/Tazobact 3.375 GM in Sodium Chloride 0.9% 100 ML IVPB SCH ×4 (03:23→22:00)
[2017-11-30 06:20] LABS: BASO % 0.2 % (0.0-2.0); EOS % 0.4 % (0.0-4.0); HEMOGLOBIN 8.2 g/dL (12.0-16.0); LYMPH # 0.5 K/uL (1.0-4.3); LYMPH % 13.3 % (20.0-40.0); MEAN CELL VOLUME 96.5 fl (81.0-99.0); MEAN CORPUSCULAR HEMOGLOBIN 31.9 pg (27.0-31.0); MEAN PLATELET VOLUME 8.8 fl (7.2-11.7); MONO # 0.2 K/uL (0.0-0.8); MONO % 5.1 % (0.0-10.0); NEUT # 3.3 K/uL (1.8-7.0); NRBC % 0.1 % (0.0-0.0); RBC 2.57 Mil/uL (3.80-5.20); WHITE BLOOD COUNT 4.1 K/uL (4.8-10.8)
[2017-11-30 06:32] LABS: ALB/GLOB RATIO 0.9 (1.0-2.1); ALBUMIN 2.2 g/dL (3.5-5.0); ALT/SGPT 40 U/L (9-52); AST/SGOT 23 U/L (14-36); BLOOD UREA NITROGEN 12 mg/dl (7-17); CALCIUM 6.9 mg/dL (8.4-10.2); GFR AFRICAN-AMERICAN > 60; GFR NON-AFRICAN AMERICAN > 60
[2017-11-30] MEDS: Potassium Chloride 20 mEq 100 ML IVPB SCH ×2 (07:21→09:21)
--- NOTE | 2017-11-30 08:45 | CP.CCUPN ---
CCU Subjective - Physician Review Events Since Last Encounter (Free Text): 11/30/17 08:42 Patient awake, no distress, no fever, no vomiting, follow simple commands, events reviewed CCU Objective - Vital Signs / Intake & Output Vital Signs (Last 4 hours): Vital Signs Pulse Resp BP Pulse Ox 11/30/17 08:08 15 11/30/17 06:00 95 H 12 121/76 97 11/30/17 05:06 13 Intake and Output (Last 8hrs): Intake & Output 11/29/17 11/30/17 11/30/17 22:59 06:59 14:59 Intake Total 1000 940 Output Total 450 800 Balance 550 140 Intake: IV 500 560 Intake, Piggyback 300 300 Oral 200 80 Output: Urine 450 800 Urethral (Wilson) 450 800 Other: # Bowel Movements 0 - Physical Exam Head: Positive for: Atraumatic, Normocephalic Pupils: Positive for: PERRL Extroacular Muscles: Positive for: EOMI Conjunctiva: Positive for: Normal. Negative for: Injected, Icteric Mouth: Positive for: Dry Nose (Internal): Positive for: Normal Inspection Neck: Positive for: Normal Range of Motion, Trachea Midline. Negative for: Meningeal Signs, MIDLINE TENDERNESS, Paraspinal Tenderness, JVD, Lymphadenopathy , Bruit, Other Respiratory/Chest: Positive for: Good Air Exchange, Decreased Breath Sounds, Rhonchi. Negative for: Respiratory Distress, Accessory Muscle Use, Wheezes, Rales, Retracting Cardiovascular: Positive for: Regular Rate and Rhythm, Normal S1, S2, Peripheal Pulses Present, Tachycardic. Negative for: Murmurs, Irregular Rhythm Abdomen: Positive for: Distention, Normal Bowel Sounds. Negative for: Tenderness, Peritoneal Signs Upper Extremity: Positive for: Normal Inspection, NORMAL PULSES. Negative for: Cyanosis, Edema Lower Extremity: Positive for: Normal Inspection, NORMAL PULSES. Negative for: Edema, CALF TENDERNESS Neurological: Positive for: Motor Func Grossly Intact, Normal Sensory Function Psychiatric: Positive for: Alert - Medications Active Medications: Active Medications Generic Name Dose Route Start Last Admin Trade Name Freq PRN Reason Stop Dose Admin Acetaminophen 650 mg 11/26/17 22:22 Tylenol 325mg Tab PO Q6H PRN Pain, Mild (1-3) Acetaminophen 650 mg 11/26/17 22:22 Tylenol 325mg Tab PO Q6H PRN Fever >100.4 F Heparin Sodium (Porcine) 5,000 units 11/27/17 01:00 11/30/17 00:21 Heparin SC 5,000 units Q8 JASMINE Administration Protocol Home Med 25 mg 11/27/17 01:00 11/30/17 00:21 Maprotiline Hcl [Maprotiline Hcl] PO 25 mg Q8 JASMINE Administration Hydromorphone HCl 0.5 mg 11/26/17 22:22 Dilaudid IVP Q6H PRN Pain, severe (8-10) Vancomycin HCl 500 mg/ Sodium 100 mls @ 100 mls/hr 11/26/17 20:15 11/29/17 19 :49 Chloride IVPB 100 mls/hr Q12H JASMINE Administration Protocol Metronidazole 250 mg/ 50 mls @ 50 mls/hr 11/27/17 19:00 11/30/17 00:20 Miscellaneous IVPB 50 mls/hr Q8 JASMINE Administration Protocol Piperacillin Sod/Tazobactam 100 mls @ 100 mls/hr 11/28/17 16:00 11/30/17 03: 23 Sod 3.375 gm/ Sodium Chloride IVPB 100 mls/hr Q6 JASMINE Administration Protocol Potassium Chloride 100 mls @ 50 mls/hr 11/30/17 07:00 11/30/17 07:21 Potassium Chloride 20 Meq/100 Ml IVPB 11/30/17 09:59 50 mls/hr Q2 JASMINE Administration Levothyroxine Sodium 88 mcg 11/28/17 06:30 11/28/17 06:27 Synthroid PO 88 mcg DAILY@0630 JASMINE Administration Levothyroxine Sodium 40 mcg 11/29/17 09:00 11/29/17 13:14 Synthroid IVP 40 mcg DAILY JASMINE Administration Ondansetron HCl 4 mg 11/26/17 22:22 Zofran Inj IVP Q6H PRN Nausea/Vomiting - Patient Studies Lab Studies: Microbiology Studies 11/26/17 14:50 Blood Culture - Preliminary Blood NO GROWTH AFTER 3 DAYS 11/26/17 14:30 Blood Culture - Preliminary Blood NO GROWTH AFTER 3 DAYS Lab Studies 11/30/17 11/30/17 11/29/17 Range/Units 05:30 05:30 21:30 WBC 4.1 L (4.8-10.8) K/uL RBC 2.57 L (3.80-5.20) Mil/uL Hgb 8.2 L (12.0-16.0) g/dL Hct 24.8 L (34.0-47.0) % MCV 96.5 (81.0-99.0) fl MCH 31.9 H (27.0-31.0) pg MCHC 33.0 (33.0-37.0) g/dL RDW 18.0 H (11.5-14.5) % Plt Count 112 L D (130-400) K/uL MPV 8.8 (7.2-11.7) fl Neut % (Auto) 81.0 H (50.0-75.0) % Lymph % (Auto) 13.3 L (20.0-40.0) % [place] % (Auto) 5.1 (0.0-10.0) % Eos % (Auto) 0.4 (0.0-4.0) % Baso % (Auto) 0.2 (0.0-2.0) % Neut # (Auto) 3.3 (1.8-7.0) K/uL Lymph # (Auto) 0.5 L (1.0-4.3) K/uL [place] # (Auto) 0.2 (0.0-0.8) K/uL Eos # (Auto) 0.0 (0.0-0.7) K/uL Baso # (Auto) 0.0 (0.0-0.2) K/uL pCO2 (35-45) mm/Hg pO2 (80-100) mm/Hg HCO3 (21-28) mmol/L ABG pH (7.35-7.45) ABG Total CO2 (22-28) mmol/L ABG O2 Saturation (95-98) % ABG O2 Content (15-23) ML/dL ABG Base Excess (-2.0-3.0) mmol/L ABG Hemoglobin (11.7-17.4) g/dL ABG Carboxyhemoglobin (0.5-1.5) % POC ABG HHb (Measured) (0.0-5.0) % ABG Methemoglobin (0.0-3.0) % ABG O2 Capacity (16-24) mL/dL Josue Test A-a O2 Difference mm/Hg Hgb O2 Saturation (95.0-98.0) % Liter Flow Vent Mode FiO2 % Sodium 150 H (132-148) mmol/l Potassium 3.3 L (3.6-5.0) MMOL/L Chloride 113 H (98-107) mmol/L Carbon Dioxide 27 (22-30) mmol/L Anion Gap 13 (10-20) BUN 12 (7-17) mg/dl Creatinine 0.8 (0.7-1.2) mg/dl Est GFR ( Amer) > 60 Est GFR (Non-Af Amer) > 60 Random Glucose 133 H (65-105) mg/dL Calcium 6.9 L (8.4-10.2) mg/dL Total Bilirubin 0.6 (0.2-1.3) mg/dl AST 23 (14-36) U/L ALT 40 (9-52) U/L Alkaline Phosphatase 150 H (38-126) U/L Total Protein 4.7 L (6.3-8.2) G/DL Albumin 2.2 L (3.5-5.0) g/dL Globulin 2.5 (2.2-3.9) gm/dL Albumin/Globulin Ratio 0.9 L (1.0-2.1) Vancomycin Trough 17.3 H (5.0-10.0) ug/mL 11/29/17 Range/Units 10:00 WBC (4.8-10.8) K/uL RBC (3.80-5.20) Mil/uL Hgb (12.0-16.0) g/dL Hct (34.0-47.0) % MCV (81.0-99.0) fl MCH (27.0-31.0) pg MCHC (33.0-37.0) g/dL RDW (11.5-14.5) % Plt Count (130-400) K/uL MPV (7.2-11.7) fl Neut % (Auto) (50.0-75.0) % Lymph % (Auto) (20.0-40.0) % [place] % (Auto) (0.0-10.0) % Eos % (Auto) (0.0-4.0) % Baso % (Auto) (0.0-2.0) % Neut # (Auto) (1.8-7.0) K/uL Lymph # (Auto) (1.0-4.3) K/uL [place] # (Auto) (0.0-0.8) K/uL Eos # (Auto) (0.0-0.7) K/uL Baso # (Auto) (0.0-0.2) K/uL pCO2 51 H (35-45) mm/Hg pO2 64 L (80-100) mm/Hg HCO3 25.4 (21-28) mmol/L ABG pH 7.33 L (7.35-7.45) ABG Total CO2 28.5 H (22-28) mmol/L ABG O2 Saturation 95.3 (95-98) % ABG O2 Content 12.1 L (15-23) ML/dL ABG Base Excess 0.6 (-2.0-3.0) mmol/L ABG Hemoglobin 9.1 L (11.7-17.4) g/dL ABG Carboxyhemoglobin 0.8 (0.5-1.5) % POC ABG HHb (Measured) 4.6 (0.0-5.0) % ABG Methemoglobin 0.6 (0.0-3.0) % ABG O2 Capacity 12.7 L (16-24) mL/dL Josue Test Yes A-a O2 Difference 585.0 mm/Hg Hgb O2 Saturation 94.0 L (95.0-98.0) % Liter Flow 25 Vent Mode Hfnc FiO2 100.0 % Sodium (132-148) mmol/l Potassium (3.6-5.0) MMOL/L Chloride (98-107) mmol/L Carbon Dioxide (22-30) mmol/L Anion Gap (10-20) BUN (7-17) mg/dl Creatinine (0.7-1.2) mg/dl Est GFR ( Amer) Est GFR (Non-Af Amer) Random Glucose (65-105) mg/dL Calcium (8.4-10.2) mg/dL Total Bilirubin (0.2-1.3) mg/dl AST (14-36) U/L ALT (9-52) U/L Alkaline Phosphatase (38-126) U/L Total Protein (6.3-8.2) G/DL Albumin (3.5-5.0) g/dL Globulin (2.2-3.9) gm/dL Albumin/Globulin Ratio (1.0-2.1) Vancomycin Trough (5.0-10.0) ug/mL Laboratory Results - last 24 hr 11/29/17 11/29/17 11/30/17 10:00 21:30 05:30 WBC 4.1 L RBC 2.57 L Hgb 8.2 L Hct 24.8 L MCV 96.5 MCH 31.9 H MCHC 33.0 RDW 18.0 H Plt Count 112 L D MPV 8.8 Neut % (Auto) 81.0 H Lymph % (Auto) 13.3 L [place] % (Auto) 5.1 Eos % (Auto) 0.4 Baso % (Auto) 0.2 Neut # (Auto) 3.3 Lymph # (Auto) 0.5 L [place] # (Auto) 0.2 Eos # (Auto) 0.0 Baso # (Auto) 0.0 pCO2 51 H pO2 64 L HCO3 25.4 ABG pH 7.33 L ABG Total CO2 28.5 H ABG O2 Saturation 95.3 ABG O2 Content 12.1 L ABG Base Excess 0.6 ABG Hemoglobin 9.1 L ABG Carboxyhemoglobin 0.8 POC ABG HHb (Measured) 4.6 ABG Methemoglobin 0.6 ABG O2 Capacity 12.7 L Josue Test Yes A-a O2 Difference 585.0 Hgb O2 Saturation 94.0 L Liter Flow 25 Vent Mode Hfnc FiO2 100.0 Sodium Potassium Chloride Carbon Dioxide Anion Gap BUN Creatinine Est GFR ( Amer) Est GFR (Non-Af Amer) Random Glucose Calcium Total Bilirubin AST ALT Alkaline Phosphatase Total Protein Albumin Globulin Albumin/Globulin Ratio Vancomycin Trough 17.3 H 11/30/17 05:30 WBC RBC Hgb Hct MCV MCH MCHC RDW Plt Count MPV Neut % (Auto) Lymph % (Auto) [place] % (Auto) Eos % (Auto) Baso % (Auto) Neut # (Auto) Lymph # (Auto) [place] # (Auto) Eos # (Auto) Baso # (Auto) pCO2 pO2 HCO3 ABG pH ABG Total CO2 ABG O2 Saturation ABG O2 Content ABG Base Excess ABG Hemoglobin ABG Carboxyhemoglobin POC ABG HHb (Measured) ABG Methemoglobin ABG O2 Capacity Josue Test A-a O2 Difference Hgb O2 Saturation Liter Flow Vent Mode FiO2 Sodium 150 H Potassium 3.3 L Chloride 113 H Carbon Dioxide 27 Anion Gap 13 BUN 12 Creatinine 0.8 Est GFR ( Amer) > 60 Est GFR (Non-Af Amer) > 60 Random Glucose 133 H Calcium 6.9 L Total Bilirubin 0.6 AST 23 ALT 40 Alkaline Phosphatase 150 H Total Protein 4.7 L Albumin 2.2 L Globulin 2.5 Albumin/Globulin Ratio 0.9 L Vancomycin Trough Fingerstick Blood Sugar Results: 118 Critical Care Progress Note - Nutrition Nutrition: Nutrition Category Date Time Status Dysphagia/Modified Consistency Diet [DIET] Diets 11/29/17 Dinner Active Assessment/Plan - Assessment and Plan (Free Text) Assessment: A/P Respiratory insufficiency, sepsis, metastatic colon ca s/p chemotherapy, renal insufficiency, anemia, h/o hypothyroid - O2 supplement - Pulmonary toilets - Continue meds - DVT prophylaxis - Oncology follow up
--- NOTE | 2017-11-30 09:23 | RAD ---
HISTORY: Shortness of breath COMPARISON: Chest radiograph dated 11/26/2017. FINDINGS: LUNGS: New right upper and lower lobe infiltrates. Questionable lingular infiltrate. PLEURA: No significant pleural effusion identified, no pneumothorax apparent. CARDIOVASCULAR: Atherosclerotic aortic calcifications. Cardiomediastinal silhouette within normal limits. OSSEOUS STRUCTURES: Unchanged. VISUALIZED UPPER ABDOMEN: Nonspecific gaseous distention of bowel. OTHER FINDINGS: Right internal jugular access chest port, unchanged. IMPRESSION: New right upper and lower lobe infiltrates. Questionable lingular infiltrate. Nonspecific gaseous distention of bowel.
--- NOTE | 2017-11-30 12:39 | CP.PCM.PN ---
Subjective - Date & Time of Evaluation Date of Evaluation: 11/30/17 Time of Evaluation: 08:30 - Subjective Subjective: Pt. is evaluated at bedside with family members near by. Pt. alert able to name her and two of her friends. Pt. with no complaints at this time. Speech diminished and soft. Overnight events reviewed. Objective - Vital Signs/Intake and Output Vital Signs (last 24 hours): Temp Pulse Resp BP Pulse Ox 98.3 F 94 H 15 141/88 100 11/30/17 08:00 11/30/17 10:00 11/30/17 11:14 11/30/17 10:00 11/30/17 10:00 Intake and Output: 11/30/17 11/30/17 06:59 18:59 Intake Total 1420 400 Output Total 800 160 Balance 620 240 - Medications Medications: Current Medications Acetaminophen (Tylenol 325mg Tab) 650 mg PO Q6H PRN PRN Reason: Pain, Mild (1-3) Acetaminophen (Tylenol 325mg Tab) 650 mg PO Q6H PRN PRN Reason: Fever >100.4 F Heparin Sodium (Porcine) (Heparin) 5,000 units SC Q8 JASMINE PRN Reason: Protocol Last Admin: 11/30/17 09:19 Dose: 5,000 units Home Med (Maprotiline Hcl [Maprotiline Hcl]) 25 mg PO Q8 [facility] Last Admin: 11/30/17 09:19 Dose: 25 mg Hydromorphone HCl (Dilaudid) 0.5 mg IVP Q6H PRN PRN Reason: Pain, severe (8-10) Vancomycin HCl 500 mg/ Sodium (Chloride) 100 mls @ 100 mls/hr IVPB Q12H JASMINE PRN Reason: Protocol Last Admin: 11/30/17 08:00 Dose: 100 mls/hr Metronidazole 250 mg/ (Miscellaneous) 50 mls @ 50 mls/hr IVPB Q8 JASMINE PRN Reason: Protocol Last Admin: 11/30/17 09:20 Dose: 50 mls/hr Piperacillin Sod/Tazobactam (Sod 3.375 gm/ Sodium Chloride) 100 mls @ 100 mls/ hr IVPB Q6 JASMINE PRN Reason: Protocol Last Admin: 11/30/17 09:23 Dose: 100 mls/hr Levothyroxine Sodium (Synthroid) 88 mcg PO DAILY@0630 [facility] Last Admin: 11/28/17 06:27 Dose: 88 mcg Levothyroxine Sodium (Synthroid) 40 mcg IVP DAILY [facility] Last Admin: 11/29/17 13:14 Dose: 40 mcg Ondansetron HCl (Zofran Inj) 4 mg IVP Q6H PRN PRN Reason: Nausea/Vomiting - Labs Labs: 11/30/17 05:30 11/30/17 05:30 PT 16.0 Seconds (9.8-13.1) H 11/27/17 04:40 INR 1.4 (0.9-1.2) H 11/27/17 04:40 APTT 31.4 Seconds (25.6-37.1) 11/27/17 04:40 - Constitutional Appears: Non-toxic, No Acute Distress, Cachectic, Chronically Ill, Other (Pale ) - Head Exam Head Exam: ATRAUMATIC, NORMOCEPHALIC - Eye Exam Eye Exam: PERRL. absent: Scleral icterus - ENT Exam ENT Exam: Mucous Membranes Dry - Neck Exam Neck Exam: Normal Inspection - Respiratory Exam Respiratory Exam: Clear to Ausculation Bilateral, NORMAL BREATHING PATTERN - Cardiovascular Exam Cardiovascular Exam: REGULAR RHYTHM, +S1, +S2 - GI/Abdominal Exam GI & Abdominal Exam: Soft. absent: Tenderness - Extremities Exam Extremities Exam: absent: Normal Capillary Refill - Psychiatric Exam Psychiatric exam: Flat Affect Assessment and Plan - Assessment and Plan (Free Text) Assessment: 62 y.o. female with Stage IV Colon Cancer admitted for Acute Kidney Injury and Severe Sepsis improving improving now with hypokalemia, generalized weakness, and still on High flow oxygen MADDI- Improving -Prerenal secondary to dehydration -BUN/CR 12/0.8 today -GFR > 60 -Will repeat Chemistry in the a.m. to monitor Renal function Severe Sepsis- Improving -ID: Dr. 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 Iron therapy or Blood product transfusion - Heme Oncology Recommendation reviewed Hypothyroidism -Levothyroxin 40mcg IVP daily -Repeat TSH Nutrition: -PAPER GOODS MACHINE OPERATOR eval: prabha chopped/thin liquids DVT Prophylaxis Heparin 5000 sc TID
[2017-11-30] MEDS: Levothyroxine 100 mcg (0.1 mg) Inj IVP SCH (12:45)
[2017-11-30] MEDS: Potassium Ch 20mEq in D5-1/2NS 1,000 ML IV SCH (19:00)
--- NOTE | 2017-11-30 19:01 | CP.PCM.PN ---
Subjective - Date & Time of Evaluation Date of Evaluation: 11/30/17 Time of Evaluation: 13:15 - Subjective Subjective: No complaints. Objective - Vital Signs/Intake and Output Vital Signs (last 24 hours): Temp Pulse Resp BP Pulse Ox 98.4 F 99 H 30 H 115/71 98 11/30/17 16:00 11/30/17 18:00 11/30/17 18:00 11/30/17 18:00 11/30/17 18:00 Intake and Output: 11/30/17 11/30/17 06:59 18:59 Intake Total 1420 1190 Output Total 800 600 Balance 620 590 - Medications Medications: Current Medications Acetaminophen (Tylenol 325mg Tab) 650 mg PO Q6H PRN PRN Reason: Pain, Mild (1-3) Acetaminophen (Tylenol 325mg Tab) 650 mg PO Q6H PRN PRN Reason: Fever >100.4 F Heparin Sodium (Porcine) (Heparin) 5,000 units SC Q8 JASMINE PRN Reason: Protocol Last Admin: 11/30/17 16:46 Dose: 5,000 units Home Med (Maprotiline Hcl [Maprotiline Hcl]) 25 mg PO Q8 [facility] Last Admin: 11/30/17 16:47 Dose: 25 mg Hydromorphone HCl (Dilaudid) 0.5 mg IVP Q6H PRN PRN Reason: Pain, severe (8-10) Vancomycin HCl 500 mg/ Sodium (Chloride) 100 mls @ 100 mls/hr IVPB Q12H JASMINE PRN Reason: Protocol Last Admin: 11/30/17 08:00 Dose: 100 mls/hr Metronidazole 250 mg/ (Miscellaneous) 50 mls @ 50 mls/hr IVPB Q8 JASMINE PRN Reason: Protocol Last Admin: 11/30/17 16:56 Dose: 50 mls/hr Piperacillin Sod/Tazobactam (Sod 3.375 gm/ Sodium Chloride) 100 mls @ 100 mls/ hr IVPB Q6 JASMINE PRN Reason: Protocol Last Admin: 11/30/17 16:47 Dose: 100 mls/hr Potassium Chloride/Dextrose/Sod Cl (Potassium Chl 20 Meq In D5-1/2ns) 1,000 mls @ 100 mls/hr IV .Q10H [facility] Levothyroxine Sodium (Synthroid) 88 mcg PO DAILY@0630 [facility] Last Admin: 11/28/17 06:27 Dose: 88 mcg Levothyroxine Sodium (Synthroid) 40 mcg IVP DAILY [facility] Last Admin: 11/30/17 12:45 Dose: 40 mcg Ondansetron HCl (Zofran Inj) 4 mg IVP Q6H PRN PRN Reason: Nausea/Vomiting - Labs Labs: 11/30/17 05:30 11/30/17 05:30 PT 16.0 Seconds (9.8-13.1) H 11/27/17 04:40 INR 1.4 (0.9-1.2) H 11/27/17 04:40 APTT 31.4 Seconds (25.6-37.1) 11/27/17 04:40 - Head Exam Head Exam: ATRAUMATIC - Eye Exam Eye Exam: Normal appearance - ENT Exam ENT Exam: Mucous Membranes Dry - Respiratory Exam Respiratory Exam: NORMAL BREATHING PATTERN - Cardiovascular Exam Cardiovascular Exam: +S1, +S2 - GI/Abdominal Exam GI & Abdominal Exam: Normal Bowel Sounds Assessment and Plan (1) Anemia Assessment & Plan: anemia of chronic disease and chemotherapy Status: Acute (2) Leukopenia Assessment & Plan: improving secondary to chemotherapy Status: Acute (3) Colon cancer Assessment & Plan: stage IV CEA at baseline repeat imaging once more stable Status: Acute
[2017-12-01] MEDS: [UNRECOGNIZED DRUG - OTHER] PO SCH ×3 (00:11→16:32)
[2017-12-01] MEDS: metroNIDAZOLE 500mg/100ml NS 250 MG in Premixed IV 1 EA IVPB SCH ×3 (00:11→16:31)
[2017-12-01] MEDS: Piperacillin/Tazobact 3.375 GM in Sodium Chloride 0.9% 100 ML IVPB SCH ×2 (04:02→09:29)
[2017-12-01 07:38] LABS: BASO # 0.1 K/uL (0.0-0.2); BASO % 1.1 % (0.0-2.0); EOS % 0.5 % (0.0-4.0); HEMOGLOBIN 8.6 g/dL (12.0-16.0); LYMPH # 0.7 K/uL (1.0-4.3); LYMPH % 10.6 % (20.0-40.0); MEAN CELL VOLUME 96.9 fl (81.0-99.0); MEAN CORPUSCULAR HEMOGLOBIN 32.7 pg (27.0-31.0); MEAN CORPUSCULAR HGB CONC 33.7 g/dL (33.0-37.0); MEAN PLATELET VOLUME 9.1 fl (7.2-11.7); MONO # 0.4 K/uL (0.0-0.8); MONO % 6.1 % (0.0-10.0); NEUT # 5.3 K/uL (1.8-7.0); NEUT % 81.7 % (50.0-75.0); NRBC % 0.1 % (0.0-0.0); RBC 2.63 Mil/uL (3.80-5.20)
[2017-12-01 07:47] LABS: ALB/GLOB RATIO 0.9 (1.0-2.1); ALBUMIN 2.2 g/dL (3.5-5.0); ALT/SGPT 35 U/L (9-52); AST/SGOT 24 U/L (14-36); BLOOD UREA NITROGEN 10 mg/dl (7-17); CALCIUM 7.3 mg/dL (8.4-10.2); GFR AFRICAN-AMERICAN > 60; GFR NON-AFRICAN AMERICAN > 60
[2017-12-01 07:55] LABS: WHITE BLOOD COUNT 6.5 K/uL (4.8-10.8)
--- NOTE | 2017-12-01 08:12 | CP.CCUPN ---
CCU Subjective - Physician Review Events Since Last Encounter (Free Text): Patient awake, no distress, no fever, no vomiting, follow simple commands, events reviewed CCU Objective - Vital Signs / Intake & Output Vital Signs (Last 4 hours): Vital Signs Temp Pulse Resp BP Pulse Ox 12/01/17 07:26 29 H 12/01/17 06:00 98.2 F 82 21 112/78 100 12/01/17 04:45 24 Intake and Output (Last 8hrs): Intake & Output 11/30/17 12/01/17 12/01/17 22:59 06:59 14:59 Intake Total 710 910 Output Total 200 350 Balance 510 560 Weight 123 lb 9.6 oz Intake: IV 590 500 Intake, Piggyback 250 Oral 120 160 Output: Urine 200 350 Urethral (Wilson) 200 350 - Physical Exam Head: Positive for: Atraumatic, Normocephalic Pupils: Positive for: PERRL Extroacular Muscles: Positive for: EOMI Conjunctiva: Positive for: Normal. Negative for: Injected, Icteric Mouth: Positive for: Dry Nose (Internal): Positive for: Normal Inspection Neck: Positive for: Normal Range of Motion, Trachea Midline. Negative for: Meningeal Signs, MIDLINE TENDERNESS, Paraspinal Tenderness, JVD, Lymphadenopathy , Bruit, Other Respiratory/Chest: Positive for: Good Air Exchange, Decreased Breath Sounds, Rhonchi. Negative for: Respiratory Distress, Accessory Muscle Use, Wheezes, Rales, Retracting Cardiovascular: Positive for: Regular Rate and Rhythm, Normal S1, S2, Peripheal Pulses Present, Tachycardic. Negative for: Murmurs, Irregular Rhythm Abdomen: Positive for: Distention, Normal Bowel Sounds. Negative for: Tenderness, Peritoneal Signs Upper Extremity: Positive for: Normal Inspection, NORMAL PULSES. Negative for: Cyanosis, Edema Lower Extremity: Positive for: Normal Inspection, NORMAL PULSES. Negative for: Edema, CALF TENDERNESS Neurological: Positive for: Motor Func Grossly Intact, Normal Sensory Function Psychiatric: Positive for: Alert - Medications Active Medications: Active Medications Generic Name Dose Route Start Last Admin Trade Name Freq PRN Reason Stop Dose Admin Acetaminophen 650 mg 11/26/17 22:22 Tylenol 325mg Tab PO Q6H PRN Pain, Mild (1-3) Acetaminophen 650 mg 11/26/17 22:22 Tylenol 325mg Tab PO Q6H PRN Fever >100.4 F Heparin Sodium (Porcine) 5,000 units 11/27/17 01:00 12/01/17 00:12 Heparin SC 5,000 units Q8 JASMINE Administration Protocol Home Med 25 mg 11/27/17 01:00 12/01/17 00:11 Maprotiline Hcl [Maprotiline Hcl] PO 25 mg Q8 JASMINE Administration Hydromorphone HCl 0.5 mg 11/26/17 22:22 Dilaudid IVP Q6H PRN Pain, severe (8-10) Vancomycin HCl 500 mg/ Sodium 100 mls @ 100 mls/hr 11/26/17 20:15 11/30/17 22 :28 Chloride IVPB Not Given Q12H JASMINE Protocol Metronidazole 250 mg/ 50 mls @ 50 mls/hr 11/27/17 19:00 12/01/17 00:11 Miscellaneous IVPB 50 mls/hr Q8 JASMNIE Administration Protocol Piperacillin Sod/Tazobactam 100 mls @ 100 mls/hr 11/28/17 16:00 12/01/17 04: 02 Sod 3.375 gm/ Sodium Chloride IVPB 100 mls/hr Q6 JASMINE Administration Protocol Potassium Chloride/Dextrose/Sod Cl 1,000 mls @ 100 mls/hr 11/30/17 18:00 19:00 Potassium Chl 20 Meq In D5-1/2ns IV 100 mls/hr .Q10H JASMINE Administration Levothyroxine Sodium 88 mcg 11/28/17 06:30 11/28/17 06:27 Synthroid PO 88 mcg DAILY@0630 JASMINE Administration Levothyroxine Sodium 40 mcg 11/29/17 09:00 11/30/17 12:45 Synthroid IVP 40 mcg DAILY JASMINE Administration Ondansetron HCl 4 mg 11/26/17 22:22 Zofran Inj IVP Q6H PRN Nausea/Vomiting - Patient Studies Lab Studies: Microbiology Studies 11/26/17 14:50 Blood Culture - Preliminary Blood NO GROWTH AFTER 4 DAYS 11/26/17 14:30 Blood Culture - Preliminary Blood NO GROWTH AFTER 4 DAYS 11/28/17 18:40 Stool Culture - Final Stool NO SALMONELLA, SHIGELLA OR CAMPYLOBACTER ISOLATED. Lab Studies 12/01/17 12/01/17 Range/Units 05:20 05:20 WBC 6.5 D (4.8-10.8) K/uL RBC 2.63 L (3.80-5.20) Mil/uL Hgb 8.6 L (12.0-16.0) g/dL Hct 25.5 L (34.0-47.0) % MCV 96.9 (81.0-99.0) fl MCH 32.7 H (27.0-31.0) pg MCHC 33.7 (33.0-37.0) g/dL RDW 18.0 H (11.5-14.5) % Plt Count 89 L D (130-400) K/uL MPV 9.1 (7.2-11.7) fl Neut % (Auto) 81.7 H (50.0-75.0) % Lymph % (Auto) 10.6 L (20.0-40.0) % [place] % (Auto) 6.1 (0.0-10.0) % Eos % (Auto) 0.5 (0.0-4.0) % Baso % (Auto) 1.1 (0.0-2.0) % Neut # (Auto) 5.3 (1.8-7.0) K/uL Lymph # (Auto) 0.7 L (1.0-4.3) K/uL [place] # (Auto) 0.4 (0.0-0.8) K/uL Eos # (Auto) 0.0 (0.0-0.7) K/uL Baso # (Auto) 0.1 (0.0-0.2) K/uL Sodium 150 H (132-148) mmol/l Potassium 3.5 L (3.6-5.0) MMOL/L Chloride 111 H (98-107) mmol/L Carbon Dioxide 28 (22-30) mmol/L Anion Gap 15 (10-20) BUN 10 (7-17) mg/dl Creatinine 0.7 (0.7-1.2) mg/dl Est GFR ( Amer) > 60 Est GFR (Non-Af Amer) > 60 Random Glucose 118 H (65-105) mg/dL Calcium 7.3 L (8.4-10.2) mg/dL Total Bilirubin 0.6 (0.2-1.3) mg/dl AST 24 (14-36) U/L ALT 35 (9-52) U/L Alkaline Phosphatase 143 H (38-126) U/L Total Protein 4.8 L (6.3-8.2) G/DL Albumin 2.2 L (3.5-5.0) g/dL Globulin 2.6 (2.2-3.9) gm/dL Albumin/Globulin Ratio 0.9 L (1.0-2.1) TSH 3rd Generation 41.40 H (0.46-4.68) mIU/ML Laboratory Results - last 24 hr 12/01/17 12/01/17 05:20 05:20 WBC 6.5 D RBC 2.63 L Hgb 8.6 L Hct 25.5 L MCV 96.9 MCH 32.7 H MCHC 33.7 RDW 18.0 H Plt Count 89 L D MPV 9.1 Neut % (Auto) 81.7 H Lymph % (Auto) 10.6 L [place] % (Auto) 6.1 Eos % (Auto) 0.5 Baso % (Auto) 1.1 Neut # (Auto) 5.3 Lymph # (Auto) 0.7 L [place] # (Auto) 0.4 Eos # (Auto) 0.0 Baso # (Auto) 0.1 Sodium 150 H Potassium 3.5 L Chloride 111 H Carbon Dioxide 28 Anion Gap 15 BUN 10 Creatinine 0.7 Est GFR ( Amer) > 60 Est GFR (Non-Af Amer) > 60 Random Glucose 118 H Calcium 7.3 L Total Bilirubin 0.6 AST 24 ALT 35 Alkaline Phosphatase 143 H Total Protein 4.8 L Albumin 2.2 L Globulin 2.6 Albumin/Globulin Ratio 0.9 L TSH 3rd Generation 41.40 H Fingerstick Blood Sugar Results: 118 Critical Care Progress Note - Nutrition Nutrition: Nutrition Category Date Time Status Dysphagia/Modified Consistency Diet [DIET] Diets 11/29/17 Dinner Active Assessment/Plan - Assessment and Plan (Free Text) Assessment: A/P Respiratory insufficiency, sepsis, metastatic colon ca s/p chemotherapy, renal insufficiency, anemia, h/o hypothyroid - O2 supplement - Pulmonary toilets - Continue meds - DVT prophylaxis - Oncology follow up
--- NOTE | 2017-12-01 08:25 | CP.PCM.PN ---
Subjective - Date & Time of Evaluation Date of Evaluation: 12/01/17 Time of Evaluation: 09:30 - Subjective Subjective: Pt seen and examined at bedside. Cognition is waxing and waning. Pt repeats "home" Objective - Vital Signs/Intake and Output Vital Signs (last 24 hours): Temp Pulse Resp BP Pulse Ox 98.2 F 82 29 H 112/78 100 12/01/17 06:00 12/01/17 06:00 12/01/17 07:26 12/01/17 06:00 12/01/17 06:00 Intake and Output: 12/01/17 12/01/17 06:59 18:59 Intake Total 1190 Output Total 350 Balance 840 - Medications Medications: Current Medications Acetaminophen (Tylenol 325mg Tab) 650 mg PO Q6H PRN PRN Reason: Pain, Mild (1-3) Acetaminophen (Tylenol 325mg Tab) 650 mg PO Q6H PRN PRN Reason: Fever >100.4 F Heparin Sodium (Porcine) (Heparin) 5,000 units SC Q8 JASMINE PRN Reason: Protocol Last Admin: 12/01/17 00:12 Dose: 5,000 units Home Med (Maprotiline Hcl [Maprotiline Hcl]) 25 mg PO Q8 [facility] Last Admin: 12/01/17 00:11 Dose: 25 mg Hydromorphone HCl (Dilaudid) 0.5 mg IVP Q6H PRN PRN Reason: Pain, severe (8-10) Vancomycin HCl 500 mg/ Sodium (Chloride) 100 mls @ 100 mls/hr IVPB Q12H JASMINE PRN Reason: Protocol Last Admin: 11/30/17 22:28 Dose: Not Given Metronidazole 250 mg/ (Miscellaneous) 50 mls @ 50 mls/hr IVPB Q8 JASMINE PRN Reason: Protocol Last Admin: 12/01/17 00:11 Dose: 50 mls/hr Piperacillin Sod/Tazobactam (Sod 3.375 gm/ Sodium Chloride) 100 mls @ 100 mls/ hr IVPB Q6 JASMINE PRN Reason: Protocol Last Admin: 12/01/17 04:02 Dose: 100 mls/hr Potassium Chloride/Dextrose/Sod Cl (Potassium Chl 20 Meq In D5-1/2ns) 1,000 mls @ 100 mls/hr IV .Q10H [facility] Last Admin: 11/30/17 19:00 Dose: 100 mls/hr Levothyroxine Sodium (Synthroid) 88 mcg PO DAILY@0630 [facility] Last Admin: 11/28/17 06:27 Dose: 88 mcg Levothyroxine Sodium (Synthroid) 40 mcg IVP DAILY [facility] Last Admin: 11/30/17 12:45 Dose: 40 mcg Ondansetron HCl (Zofran Inj) 4 mg IVP Q6H PRN PRN Reason: Nausea/Vomiting - Labs Labs: 12/01/17 05:20 12/01/17 05:20 PT 16.0 Seconds (9.8-13.1) H 11/27/17 04:40 INR 1.4 (0.9-1.2) H 11/27/17 04:40 APTT 31.4 Seconds (25.6-37.1) 11/27/17 04:40 - Constitutional Appears: No Acute Distress, Cachectic - Eye Exam Eye Exam: EOMI - Respiratory Exam Additional comments: Phlegmatous breathing. Unable to fully exporate. - Cardiovascular Exam Cardiovascular Exam: REGULAR RHYTHM, +S1, +S2 - GI/Abdominal Exam GI & Abdominal Exam: Soft, Normal Bowel Sounds. absent: Tenderness - Extremities Exam Extremities Exam: absent: Calf Tenderness - Neurological Exam Neurological Exam: Altered. absent: Oriented x3 Assessment and Plan - Assessment and Plan (Free Text) Plan: 62 y.o. female with Stage IV Colon Cancer admitted for Acute Kidney Injury and Severe Sepsis improving now with hypokalemia, generalized weakness, and still on High flow oxygen MADDI- Improving -Prerenal secondary to dehydration -BUN/CR 10/0.7 today -GFR > 60 -Will repeat Chemistry in the a.m. to monitor Renal function Severe Sepsis- Improving -Clinical Nurse Leader: recommendations appreciated: -ID: Dr. Crespo: recommendations appreciated: -d/c Vanc/Zosyn (6 days total) . Continue Flagyl (day6); Added Teflaro and Clinda -blood cx: Negative after 4 days will await final BCx -urine cx: Final negative -MRSA cx: Final negative -stool cx: Final negative Hypokalemia - Potassium of 3.5 today - D5-1/2NS with 20meq of KCL at 100cc/hr - Repeat Chemistry in AM Colon Ca stage 4 with metastasis to liver -Dr Wright: recommendations appreciated: CEA: 53.1 -Home Hospice discussed with patient's - will consider -CT C/A/P: when renal fx stabilizes R sided infiltrates - CXR portable on 11/30/2017 - consider HCAP - Added Teflaro and Clinda per Dr. 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 Iron therapy or Blood product transfusion - Heme Oncology Recommendation reviewed and appreciated Hypothyroidism -Levothyroxin increased to 60mcg IVP daily starting 12/02/2017 -Repeat TSH: 41.40; will repeat after new titration Nutrition: -LIGHTING SPECIALIST eval: finely chopped/thin liquids DVT Prophylaxis Heparin 5000 sc TID DNR/DNI: Confirmed with Ed, -Considering comfort measures: hospice
[2017-12-01] MEDS: Levothyroxine 100 mcg (0.1 mg) Inj IVP SCH (09:29)
[2017-12-01] MEDS ORDERED: Levothyroxine 100 mcg (0.1 mg) Inj IVP SCH (10:15)
[2017-12-01] MEDS: Potassium Ch 20mEq in D5-1/2NS 1,000 ML IV SCH (13:36)
--- NOTE | 2017-12-01 16:28 | CP.PCM.PN ---
Subjective - Date & Time of Evaluation Date of Evaluation: 12/01/17 Time of Evaluation: 16:20 - Subjective Subjective: I D NOTE CXR SHOWS NEW R UPPER AND LOWER LOBE INFILTRATES WBC HAS INCREASED 6.5 . CLINICALLY REALLY NOT IMPROVING POSSIBLE ASPIRATION UPON REVIEW OF CXR ANTIBIOTICS CHANGED TO TEFLARO(ADJUSTED RENAL DOSE CONSIDERING ADMITTING LABS) CLINDAMYCIN FOR GRAM POSITIVE AND ANAEROBIC COVERAGE. THUS WILL HAVE INCREASED BACTERIAL COVERAGE Objective - Vital Signs/Intake and Output Vital Signs (last 24 hours): Temp Pulse Resp BP Pulse Ox 98 F 85 21 111/72 100 12/01/17 12:00 12/01/17 14:00 12/01/17 15:45 12/01/17 14:00 12/01/17 14:00 Intake and Output: 12/01/17 12/01/17 06:59 18:59 Intake Total 1190 1250 Output Total 350 300 Balance 840 950 - Medications Medications: Current Medications Acetaminophen (Tylenol 325mg Tab) 650 mg PO Q6H PRN PRN Reason: Pain, Mild (1-3) Acetaminophen (Tylenol 325mg Tab) 650 mg PO Q6H PRN PRN Reason: Fever >100.4 F Heparin Sodium (Porcine) (Heparin) 5,000 units SC Q8 [facility] PRN Reason: Protocol Last Admin: 12/01/17 09:27 Dose: 5,000 units Home Med (Maprotiline Hcl [Maprotiline Hcl]) 25 mg PO Q8 [facility] Last Admin: 12/01/17 09:27 Dose: 25 mg Hydromorphone HCl (Dilaudid) 0.5 mg IVP Q6H PRN PRN Reason: Pain, severe (8-10) Metronidazole 250 mg/ (Miscellaneous) 50 mls @ 50 mls/hr IVPB Q8 [facility] PRN Reason: Protocol Last Admin: 12/01/17 09:27 Dose: 50 mls/hr Potassium Chloride/Dextrose/Sod Cl (Potassium Chl 20 Meq In D5-1/2ns) 1,000 mls @ 100 mls/hr IV .Q10H [facility] Last Admin: 12/01/17 13:36 Dose: 100 mls/hr Clindamycin Phosphate (Cleocin) 600 mg in 50 mls @ 50 mls/hr IVPB Q8 [facility] PRN Reason: Protocol Ceftaroline Fosamil 400 mg/ (Sodium Chloride) 100 mls @ 100 mls/hr IVPB Q12 JASMINE PRN Reason: Protocol Levothyroxine Sodium (Synthroid) 88 mcg PO DAILY@0630 JASIMNE Last Admin: 11/28/17 06:27 Dose: 88 mcg Levothyroxine Sodium (Synthroid) 60 mcg IVP DAILY [facility] Ondansetron HCl (Zofran Inj) 4 mg IVP Q6H PRN PRN Reason: Nausea/Vomiting - Labs Labs: 12/01/17 05:20 12/01/17 05:20 PT 16.0 Seconds (9.8-13.1) H 11/27/17 04:40 INR 1.4 (0.9-1.2) H 11/27/17 04:40 APTT 31.4 Seconds (25.6-37.1) 11/27/17 04:40
[2017-12-01] MEDS: Clindamycin 600mg/50ml D5W 600 MG/50 ML VIAL IVPB SCH (16:30)
[2017-12-02] MEDS: metroNIDAZOLE 500mg/100ml NS 250 MG in Premixed IV 1 EA IVPB SCH ×2 (00:01→08:55)
[2017-12-02] MEDS: [UNRECOGNIZED DRUG - OTHER] PO SCH ×3 (00:01→16:26)
[2017-12-02] MEDS: Clindamycin 600mg/50ml D5W 600 MG/50 ML VIAL IVPB SCH ×3 (00:03→16:26)
[2017-12-02] MEDS: Potassium Ch 20mEq in D5-1/2NS 1,000 ML IV SCH ×4 (00:04→20:42)
[2017-12-02 06:03] LABS: BASO % 0.2 % (0.0-2.0); EOS % 0.4 % (0.0-4.0); HEMOGLOBIN 8.3 g/dL (12.0-16.0); LYMPH # 0.8 K/uL (1.0-4.3); LYMPH % 10.1 % (20.0-40.0); MEAN CELL VOLUME 97.8 fl (81.0-99.0); MEAN CORPUSCULAR HEMOGLOBIN 32.5 pg (27.0-31.0); MEAN CORPUSCULAR HGB CONC 33.3 g/dL (33.0-37.0); MEAN PLATELET VOLUME 9.5 fl (7.2-11.7); MONO # 0.6 K/uL (0.0-0.8); MONO % 7.3 % (0.0-10.0); NEUT # 6.8 K/uL (1.8-7.0); NRBC % 0.1 % (0.0-0.0); RBC 2.54 Mil/uL (3.80-5.20); RED CELL DISTRIBUTION WIDTH 18.2 % (11.5-14.5); WHITE BLOOD COUNT 8.3 K/uL (4.8-10.8)
[2017-12-02 06:06] LABS: ALB/GLOB RATIO 0.8 (1.0-2.1); ALBUMIN 2.1 g/dL (3.5-5.0); ALT/SGPT 40 U/L (9-52); AST/SGOT 21 U/L (14-36); BLOOD UREA NITROGEN 10 mg/dl (7-17); CALCIUM 7.1 mg/dL (8.4-10.2); GFR AFRICAN-AMERICAN > 60; GFR NON-AFRICAN AMERICAN > 60
--- NOTE | 2017-12-02 10:08 | CP.PCM.PN ---
Subjective - Date & Time of Evaluation Date of Evaluation: 12/02/17 Time of Evaluation: 07:40 - Subjective Subjective: Pt seen and examined at bedside. More alert and oriented today. Requests to go home because she has things to do and doesnt want to stay in the hospital. She is aware of her length of stay. Denies significant overnight events. Denies CP/N /V. Tolerating PO: finely chopped and clear liquid diet. Objective - Vital Signs/Intake and Output Vital Signs (last 24 hours): Temp Pulse Resp BP Pulse Ox 98.5 F 95 H 25 H 123/71 100 12/02/17 08:00 12/02/17 10:00 12/02/17 10:00 12/02/17 10:00 12/02/17 10:00 Intake and Output: 12/02/17 12/02/17 06:59 18:59 Intake Total 1050 450 Output Total 300 100 Balance 750 350 - Medications Medications: Current Medications Acetaminophen (Tylenol 325mg Tab) 650 mg PO Q6H PRN PRN Reason: Pain, Mild (1-3) Acetaminophen (Tylenol 325mg Tab) 650 mg PO Q6H PRN PRN Reason: Fever >100.4 F Heparin Sodium (Porcine) (Heparin) 5,000 units SC Q8 JASMINE PRN Reason: Protocol Last Admin: 12/02/17 08:55 Dose: 5,000 units Home Med (Maprotiline Hcl [Maprotiline Hcl]) 25 mg PO Q8 [facility] Last Admin: 12/02/17 08:56 Dose: 25 mg Hydromorphone HCl (Dilaudid) 0.5 mg IVP Q6H PRN PRN Reason: Pain, severe (8-10) Metronidazole 250 mg/ (Miscellaneous) 50 mls @ 50 mls/hr IVPB Q8 JASMINE PRN Reason: Protocol Last Admin: 12/02/17 08:55 Dose: 50 mls/hr Potassium Chloride/Dextrose/Sod Cl (Potassium Chl 20 Meq In D5-1/2ns) 1,000 mls @ 100 mls/hr IV .Q10H [facility] Last Admin: 12/02/17 04:00 Dose: 100 mls/hr Clindamycin Phosphate (Cleocin) 600 mg in 50 mls @ 50 mls/hr IVPB Q8 JASMINE PRN Reason: Protocol Last Admin: 12/02/17 08:55 Dose: 50 mls/hr Ceftaroline Fosamil 400 mg/ (Sodium Chloride) 100 mls @ 100 mls/hr IVPB Q12 JASMIEN PRN Reason: Protocol Last Admin: 12/02/17 08:56 Dose: 100 mls/hr Levothyroxine Sodium (Synthroid) 88 mcg PO DAILY@0630 [facility] Last Admin: 11/28/17 06:27 Dose: 88 mcg Levothyroxine Sodium (Synthroid) 60 mcg IVP DAILY [facility] Last Admin: 12/02/17 09:15 Dose: 60 mcg Ondansetron HCl (Zofran Inj) 4 mg IVP Q6H PRN PRN Reason: Nausea/Vomiting - Labs Labs: 12/02/17 04:50 12/02/17 04:50 PT 16.0 Seconds (9.8-13.1) H 11/27/17 04:40 INR 1.4 (0.9-1.2) H 11/27/17 04:40 APTT 31.4 Seconds (25.6-37.1) 11/27/17 04:40 - Constitutional Appears: No Acute Distress - Eye Exam Eye Exam: EOMI - Respiratory Exam Respiratory Exam: Prolonged Expiratory Phase, Wheezes Additional comments: Pt with phlegmatous breathing especially on R side. - Cardiovascular Exam Cardiovascular Exam: +S1, +S2 - GI/Abdominal Exam GI & Abdominal Exam: Distended, Normal Bowel Sounds, Organomegaly. absent: Tenderness - Extremities Exam Extremities Exam: absent: Calf Tenderness - Neurological Exam Neurological Exam: Alert, Awake - Psychiatric Exam Psychiatric exam: Normal Mood Assessment and Plan - Assessment and Plan (Free Text) Plan: 62 y.o. female with Stage IV Colon Cancer admitted for Acute Kidney Injury and Severe Sepsis improving now with hypokalemia, generalized weakness, and still on High flow oxygen Colon Ca stage 4 with metastasis to liver -Dr Wright: recommendations appreciated: CEA: 53.1 -CT C/A/P: when renal fx stabilizes R sided infiltrates - CXR portable on 11/30/2017 - consider HCAP - Added Teflaro and Clinda per Dr. Crespo Hypokalemia - Potassium of 3.4 today - D5-1/2NS with 20 meq of KCL at 100 cc/hr - Repeat Chemistry in AM MADDI- Improving -Prerenal secondary to dehydration -BUN/CR 10/0.7 stable today -GFR > 60 Severe Sepsis- Resolved -transfer from ICU to Med surg. -ID: Dr. Crespo: recommendations appreciated: -s/p Vanc/Zosyn (6 days). Continue Flagyl (day7); Added Teflaro (day 2) and Clinda (day 2) -blood cx: Final Negative -urine cx: Final negative -MRSA: Final negative -stool cx: Final negative Anemia- Likely due to anemia of chronic disease - [id number] - Consider I.V. Iron therapy or Blood product transfusion - Heme Oncology Recommendation reviewed and appreciated Hypothyroidism -Levothyroxin 88 mcg PO Anxiety -Pt was on Xanax. Start at 1 mg q daily Nutrition: -[employer] eval: finely chopped/thin liquids; tolerating PO meds DVT Prophylaxis Heparin 5000 sc TID DNR/DNI: Confirmed with Ed, -Considering comfort measures: hospice
[2017-12-02] MEDS ORDERED: Levothyroxine 100 mcg (0.1 mg) Inj IVP SCH (10:15)
--- NOTE | 2017-12-02 15:37 | CP.CCUPN ---
CCU Subjective - Physician Review Events Since Last Encounter (Free Text): 12/02/17 15:27 The patient was Seen/interviewed and examined by me at the bedside, Medical records reviewed and Management issues were discussed and formulated with the house staff. Events reviewed 62 Years old Female with PMHx of Anxiety, Asthma, Bronchitis, COPD, Emphysema, Hiatal Hernia, Hypothyroidism and colon cancer (currently on chemotherapy with last session November 14) Who presents to ED with complaints of generalized weakness as per at bedside. In the ER she is hypotensive and tachcardic (Vital improved with IV hydratiion) Patient awake, Lethergic, looks dehydrated and chronically sick Blood culture sent and Patient started on IV Vanco and Zosyn Remains on HFNC at 100%, Saturation mid 90s Patient is DNR/DNI now And currently being evaluated for home hospice Awake, comfortable, NAD Denies any chest pain, SOB or Palpitations No fever/chills Pain well controlled CCU Objective - Vital Signs / Intake & Output Vital Signs (Last 4 hours): Vital Signs Temp Pulse Resp BP Pulse Ox 12/02/17 12:36 19 12/02/17 12:00 98.2 F 93 H 25 H 132/68 100 Intake and Output (Last 8hrs): Intake & Output 12/02/17 12/02/17 12/02/17 06:59 14:59 22:59 Intake Total 750 1100 Output Total 300 150 Balance 450 950 Weight 127 lb 12.8 oz Intake: IV 600 500 Intake, Piggyback 100 250 Oral 50 350 Output: Urine 300 150 Urethral (Wilson) 300 150 - Physical Exam Head: Positive for: Atraumatic, Normocephalic Pupils: Positive for: PERRL Extroacular Muscles: Positive for: EOMI Conjunctiva: Positive for: Normal. Negative for: Injected, Icteric Mouth: Positive for: Dry Nose (Internal): Positive for: Normal Inspection Neck: Positive for: Normal Range of Motion, Trachea Midline. Negative for: Meningeal Signs, MIDLINE TENDERNESS, Paraspinal Tenderness, JVD, Lymphadenopathy , Bruit, Other Respiratory/Chest: Positive for: Good Air Exchange, Decreased Breath Sounds, Rhonchi. Negative for: Respiratory Distress, Accessory Muscle Use, Wheezes, Rales, Retracting Cardiovascular: Positive for: Regular Rate and Rhythm, Normal S1, S2, Peripheal Pulses Present, Tachycardic. Negative for: Murmurs, Irregular Rhythm Abdomen: Positive for: Distention, Normal Bowel Sounds. Negative for: Tenderness, Peritoneal Signs Upper Extremity: Positive for: Normal Inspection, NORMAL PULSES. Negative for: Cyanosis, Edema Lower Extremity: Positive for: Normal Inspection, NORMAL PULSES. Negative for: Edema, CALF TENDERNESS Neurological: Positive for: Motor Func Grossly Intact, Normal Sensory Function Psychiatric: Positive for: Alert - Medications Active Medications: Active Medications Generic Name Dose Route Start Last Admin Trade Name Freq PRN Reason Stop Dose Admin Acetaminophen 650 mg 11/26/17 22:22 Tylenol 325mg Tab PO Q6H PRN Pain, Mild (1-3) Acetaminophen 650 mg 11/26/17 22:22 Tylenol 325mg Tab PO Q6H PRN Fever >100.4 F Alprazolam 1 mg 12/02/17 12:30 Xanax PO DAILY JASMINE Heparin Sodium (Porcine) 5,000 units 11/27/17 01:00 12/02/17 08:55 Heparin SC 5,000 units Q8 JASMINE Administration Protocol Home Med 25 mg 11/27/17 01:00 12/02/17 08:56 Maprotiline Hcl [Maprotiline Hcl] PO 25 mg Q8 JASMINE Administration Hydromorphone HCl 0.5 mg 11/26/17 22:22 Dilaudid IVP Q6H PRN Pain, severe (8-10) Metronidazole 250 mg/ 50 mls @ 50 mls/hr 11/27/17 19:00 12/02/17 08:55 Miscellaneous IVPB 50 mls/hr Q8 JASMINE Administration Protocol Potassium Chloride/Dextrose/Sod Cl 1,000 mls @ 100 mls/hr 11/30/17 18:00 04:00 Potassium Chl 20 Meq In D5-1/2ns IV 100 mls/hr .Q10H JASMINE Administration Clindamycin Phosphate 600 mg in 50 mls @ 50 mls/hr 12/01/17 17:00 12/02/17 08 :55 Cleocin IVPB 50 mls/hr Q8 JASMINE Administration Protocol Ceftaroline Fosamil 400 mg/ 100 mls @ 100 mls/hr 12/01/17 21:00 12/02/17 08: 56 Sodium Chloride IVPB 100 mls/hr Q12 JASMINE Administration Protocol Levothyroxine Sodium 88 mcg 11/28/17 06:30 11/28/17 06:27 Synthroid PO 88 mcg DAILY@0630 JASMINE Administration Ondansetron HCl 4 mg 11/26/17 22:22 Zofran Inj IVP Q6H PRN Nausea/Vomiting - Patient Studies Lab Studies: Microbiology Studies 11/26/17 14:50 Blood Culture - Final Blood NO GROWTH AFTER 5 DAYS Gram Stain - Final TEST NOT PERFORMED 11/26/17 14:30 Blood Culture - Final Blood NO GROWTH AFTER 5 DAYS Gram Stain - Final TEST NOT PERFORMED Lab Studies 12/02/17 12/02/17 Range/Units 04:50 04:50 WBC 8.3 (4.8-10.8) K/uL RBC 2.54 L (3.80-5.20) Mil/uL Hgb 8.3 L (12.0-16.0) g/dL Hct 24.8 L (34.0-47.0) % MCV 97.8 (81.0-99.0) fl MCH 32.5 H (27.0-31.0) pg MCHC 33.3 (33.0-37.0) g/dL RDW 18.2 H (11.5-14.5) % Plt Count 68 L D (130-400) K/uL MPV 9.5 (7.2-11.7) fl Neut % (Auto) 82.0 H (50.0-75.0) % Lymph % (Auto) 10.1 L (20.0-40.0) % [place] % (Auto) 7.3 (0.0-10.0) % Eos % (Auto) 0.4 (0.0-4.0) % Baso % (Auto) 0.2 (0.0-2.0) % Neut # (Auto) 6.8 (1.8-7.0) K/uL Lymph # (Auto) 0.8 L (1.0-4.3) K/uL [place] # (Auto) 0.6 (0.0-0.8) K/uL Eos # (Auto) 0.0 (0.0-0.7) K/uL Baso # (Auto) 0.0 (0.0-0.2) K/uL Sodium 149 H (132-148) mmol/l Potassium 3.4 L (3.6-5.0) MMOL/L Chloride 108 H (98-107) mmol/L Carbon Dioxide 30 (22-30) mmol/L Anion Gap 14 (10-20) BUN 10 (7-17) mg/dl Creatinine 0.7 (0.7-1.2) mg/dl Est GFR ( Amer) > 60 Est GFR (Non-Af Amer) > 60 Random Glucose 104 (65-105) mg/dL Calcium 7.1 L (8.4-10.2) mg/dL Total Bilirubin 0.4 (0.2-1.3) mg/dl AST 21 (14-36) U/L ALT 40 (9-52) U/L Alkaline Phosphatase 127 H (38-126) U/L Total Protein 4.6 L (6.3-8.2) G/DL Albumin 2.1 L (3.5-5.0) g/dL Globulin 2.5 (2.2-3.9) gm/dL Albumin/Globulin Ratio 0.8 L (1.0-2.1) Laboratory Results - last 24 hr 12/02/17 12/02/17 04:50 04:50 WBC 8.3 RBC 2.54 L Hgb 8.3 L Hct 24.8 L MCV 97.8 MCH 32.5 H MCHC 33.3 RDW 18.2 H Plt Count 68 L D MPV 9.5 Neut % (Auto) 82.0 H Lymph % (Auto) 10.1 L [place] % (Auto) 7.3 Eos % (Auto) 0.4 Baso % (Auto) 0.2 Neut # (Auto) 6.8 Lymph # (Auto) 0.8 L [place] # (Auto) 0.6 Eos # (Auto) 0.0 Baso # (Auto) 0.0 Sodium 149 H Potassium 3.4 L Chloride 108 H Carbon Dioxide 30 Anion Gap 14 BUN 10 Creatinine 0.7 Est GFR ( Amer) > 60 Est GFR (Non-Af Amer) > 60 Random Glucose 104 Calcium 7.1 L Total Bilirubin 0.4 AST 21 ALT 40 Alkaline Phosphatase 127 H Total Protein 4.6 L Albumin 2.1 L Globulin 2.5 Albumin/Globulin Ratio 0.8 L Fingerstick Blood Sugar Results: 118 Critical Care Progress Note - Nutrition Nutrition: Nutrition Category Date Time Status Dysphagia/Modified Consistency Diet [DIET] Diets 11/29/17 Dinner Active Assessment/Plan (1) Severe sepsis Current Visit: Yes Status: Acute Comment: Blood culture negative Continue IV Clindamycin, Ceftaroline and Metronidazole Continue IV hydration Monitor UOP Monitor fever curve, Tylenol PRN fevers Trend WBC count, lactate (2) MADDI (acute kidney injury) Current Visit: Yes Status: Acute Comment: Volume resuscitaion Corrrect hypokalemia IV Emperic Anx (renally dosed) Liu cultures NGTD (3) Colon cancer Current Visit: Yes Status: Acute Comment: colon cancer (currently on chemotherapy with last session November 14) Patient is DNR/DNI now Nutritional suupoert with Ensure clear TID Pain controlled (4) Hypokalemia Current Visit: Yes Status: Acute (5) COPD (chronic obstructive pulmonary disease) Current Visit: No Status: Acute
[2017-12-03] MEDS: Clindamycin 600mg/50ml D5W 600 MG/50 ML VIAL IVPB SCH ×3 (01:44→17:11)
[2017-12-03] MEDS: [UNRECOGNIZED DRUG - OTHER] PO SCH ×3 (01:44→17:09)
[2017-12-03] MEDS: Dextrose 5%/0.45% NS 1,000 ML IV SCH ×2 (06:02→15:45)
--- NOTE | 2017-12-03 07:56 | CP.PCM.PN ---
Subjective - Date & Time of Evaluation Date of Evaluation: 12/03/17 Time of Evaluation: 08:00 - Subjective Subjective: Pt seen and evaluated at bedside. Reports desire to go home. Pt denies significant overnight events. Requested water. Denies any discomforts. Able to speak and respond but slowly. Objective - Vital Signs/Intake and Output Vital Signs (last 24 hours): Temp Pulse Resp BP Pulse Ox 97.9 F 86 20 107/70 100 12/02/17 23:21 12/02/17 23:21 12/03/17 06:04 12/02/17 23:21 12/02/17 23:21 - Medications Medications: Current Medications Acetaminophen (Tylenol 325mg Tab) 650 mg PO Q6H PRN PRN Reason: Pain, Mild (1-3) Acetaminophen (Tylenol 325mg Tab) 650 mg PO Q6H PRN PRN Reason: Fever >100.4 F Alprazolam (Xanax) 1 mg PO DAILY [facility] Last Admin: 12/02/17 16:32 Dose: 1 mg Heparin Sodium (Porcine) (Heparin) 5,000 units SC Q8 JASMINE PRN Reason: Protocol Last Admin: 12/03/17 01:43 Dose: 5,000 units Home Med (Maprotiline Hcl [Maprotiline Hcl]) 25 mg PO Q8 [facility] Last Admin: 12/03/17 01:44 Dose: 25 mg Hydromorphone HCl (Dilaudid) 0.5 mg IVP Q6H PRN PRN Reason: Pain, severe (8-10) Clindamycin Phosphate (Cleocin) 600 mg in 50 mls @ 50 mls/hr IVPB Q8 JASMINE PRN Reason: Protocol Last Admin: 12/03/17 01:44 Dose: 50 mls/hr Ceftaroline Fosamil 400 mg/ (Sodium Chloride) 100 mls @ 100 mls/hr IVPB Q12 JASMINE PRN Reason: Protocol Last Admin: 12/02/17 21:53 Dose: 100 mls/hr Dextrose/Sodium Chloride (Dextrose 5%/0.45% Ns 1000 Ml) 1,000 mls @ 100 mls/hr IV .Q10H [facility] Last Admin: 12/03/17 06:02 Dose: 100 mls/hr Levothyroxine Sodium (Synthroid) 88 mcg PO DAILY@0630 [facility] Last Admin: 11/28/17 06:27 Dose: 88 mcg Ondansetron HCl (Zofran Inj) 4 mg IVP Q6H PRN PRN Reason: Nausea/Vomiting - Labs Labs: 12/02/17 04:50 12/02/17 04:50 PT 16.0 Seconds (9.8-13.1) H 11/27/17 04:40 INR 1.4 (0.9-1.2) H 11/27/17 04:40 APTT 31.4 Seconds (25.6-37.1) 11/27/17 04:40 - Eye Exam Eye Exam: EOMI - Respiratory Exam Respiratory Exam: Clear to Ausculation Bilateral. absent: Wheezes - Cardiovascular Exam Cardiovascular Exam: +S1, +S2 - GI/Abdominal Exam GI & Abdominal Exam: Soft, Normal Bowel Sounds. absent: Tenderness - Extremities Exam Extremities Exam: absent: Calf Tenderness - Neurological Exam Neurological Exam: Abnormal Gait (with assistance from PT), Alert, Awake Assessment and Plan - Assessment and Plan (Free Text) Plan: 62 y.o. female with Stage IV Colon Cancer admitted for Acute Kidney Injury and Severe Sepsis improving with hypokalemia, generalized weakness, and on tapered High flow oxygen Colon Ca stage 4 with metastasis to liver -Dr Wright: recommendations appreciated: CEA: 53.1 -CT C/A/P: when renal fx stabilizes R sided infiltrates - CXR portable on 11/30/2017 - consider HCAP - Added Teflaro and Clinda (day 3) per Dr. Crespo Hypokalemia - Potassium of 3.4 today and stable - Repeat Chemistry in AM MADDI- Improving -Prerenal secondary to dehydration -BUN/CR 10/0.6 stable today -GFR > 60 Severe Sepsis- Resolved -transfer from ICU to Med surg. -ID: Dr. Crespo: recommendations appreciated: -s/p Vanc/Zosyn (6 days). Continue Flagyl (day7); Added Teflaro (day 3) and Clinda (day 3) -blood cx: Final Negative -urine cx: Final negative -MRSA: Final negative -stool cx: Final negative Anemia- Likely due to anemia of chronic disease - 8.5/25.9 - Consider I.V. Iron therapy or Blood product transfusion - Heme Oncology Recommendation reviewed and appreciated Hypothyroidism -Levothyroxin 88 mcg PO Anxiety -Pt was on Xanax. Start at 1 mg q daily Nutrition: -PYTHON CONSULTANT eval: finely chopped/thin liquids; tolerating PO meds DVT Prophylaxis Heparin 5000 sc TID DNR/DNI: Confirmed with Ed, -Comfort measures: home hospice
[2017-12-03 09:03] LABS: BASO % 0.3 % (0.0-2.0); EOS % 0.4 % (0.0-4.0); HEMOGLOBIN 8.5 g/dL (12.0-16.0); LYMPH # 0.6 K/uL (1.0-4.3); LYMPH % 6.3 % (20.0-40.0); MEAN CELL VOLUME 98.6 fl (81.0-99.0); MEAN CORPUSCULAR HEMOGLOBIN 32.2 pg (27.0-31.0); MEAN CORPUSCULAR HGB CONC 32.7 g/dL (33.0-37.0); MEAN PLATELET VOLUME 10.5 fl (7.2-11.7); MONO # 0.8 K/uL (0.0-0.8); MONO % 7.9 % (0.0-10.0); NEUT # 8.3 K/uL (1.8-7.0); NEUT % 85.1 % (50.0-75.0); NRBC % 0.2 % (0.0-0.0); PLATELET COUNT 68 K/uL (130-400); RBC 2.62 Mil/uL (3.80-5.20); RED CELL DISTRIBUTION WIDTH 18.5 % (11.5-14.5); WHITE BLOOD COUNT 9.8 K/uL (4.8-10.8)
[2017-12-03 09:12] LABS: ALB/GLOB RATIO 0.9 (1.0-2.1); ALBUMIN 2.3 g/dL (3.5-5.0); ALT/SGPT 34 U/L (9-52); AST/SGOT 18 U/L (14-36); BLOOD UREA NITROGEN 10 mg/dl (7-17); GFR AFRICAN-AMERICAN > 60; GFR NON-AFRICAN AMERICAN > 60
[2017-12-03 09:41] LABS: LYMPHOCYTE 8 % (20-50); METAMYELOCYTE 1 % (0-0); MONOCYTE 8 % (0-10); MYELOCYTE 2 % (0-0); NEUTROPHIL 81 % (42-75); TOTAL CELLS COUNTED 100
[2017-12-03 09:42] LABS: ANISOCYTOSIS SLIGHT; HYPOCHROMIC SLIGHT; PLATELET ESTIMATE DECREASED (NORMAL)
[2017-12-03 09:49] LABS: OVALOCYTES SLIGHT; TOXIC GRANULATION PRESENT
[2017-12-04] MEDS: Clindamycin 600mg/50ml D5W 600 MG/50 ML VIAL IVPB SCH ×3 (00:50→16:15)
[2017-12-04] MEDS: [UNRECOGNIZED DRUG - OTHER] PO SCH ×3 (00:50→16:16)
[2017-12-04] MEDS: Dextrose 5%/0.45% NS 1,000 ML IV SCH ×5 (02:09→21:45)
[2017-12-04] MEDS: Levothyroxine 88 MCG TAB PO SCH (06:04)
[2017-12-04 06:37] LABS: HEMOGLOBIN 8.5 g/dL (12.0-16.0); MEAN CELL VOLUME 97.8 fl (81.0-99.0); MEAN CORPUSCULAR HGB CONC 32.7 g/dL (33.0-37.0); RBC 2.67 Mil/uL (3.80-5.20); RED CELL DISTRIBUTION WIDTH 17.7 % (11.5-14.5); WHITE BLOOD COUNT 10.2 K/uL (4.8-10.8)
[2017-12-04 06:53] LABS: BLOOD UREA NITROGEN 7 mg/dl (7-17); CALCIUM 6.9 mg/dL (8.4-10.2); GFR AFRICAN-AMERICAN > 60; GFR NON-AFRICAN AMERICAN > 60
[2017-12-04] MEDS ORDERED: Potassium Chloride 20 mEq ER Tab PO ONE ×2 (08:11→17:04)
--- NOTE | 2017-12-04 16:15 | CP.PCM.PCO ---
Assessment/Plan - Assessment and Plan (Free Text) Assessment: Pt was put on NC. per nurse on 5L NC pt desaturated. currently on 10L daniel observe pt overnight
[2017-12-04 16:59] LABS: BLOOD UREA NITROGEN 7 mg/dl (7-17); CALCIUM 6.9 mg/dL (8.4-10.2); GFR AFRICAN-AMERICAN > 60; GFR NON-AFRICAN AMERICAN > 60
--- NOTE | 2017-12-04 17:01 | CP.PCM.PN ---
Subjective - Date & Time of Evaluation Date of Evaluation: 12/04/17 Time of Evaluation: 08:15 - Subjective Subjective: Pt seen and examined at bedside and ready for home. Denies significant overnight events. Denies: cp/n/v. Pt gradually tolerating PO: finely chopped/ liquid diet. Objective - Vital Signs/Intake and Output Vital Signs (last 24 hours): Temp Pulse Resp BP Pulse Ox 97.5 F L 103 H 19 136/78 95 12/04/17 16:12 12/04/17 16:12 12/04/17 16:12 12/04/17 16:12 12/04/17 16:12 Intake and Output: 12/04/17 12/04/17 06:59 18:59 Intake Total 1300 Output Total 1150 Balance 150 - Medications Medications: Current Medications Acetaminophen (Tylenol 325mg Tab) 650 mg PO Q6H PRN PRN Reason: Pain, Mild (1-3) Acetaminophen (Tylenol 325mg Tab) 650 mg PO Q6H PRN PRN Reason: Fever >100.4 F Alprazolam (Xanax) 1 mg PO DAILY [facility] Last Admin: 12/04/17 08:36 Dose: 1 mg Heparin Sodium (Porcine) (Heparin) 5,000 units SC Q8 JASMINE PRN Reason: Protocol Last Admin: 12/04/17 16:16 Dose: 5,000 units Home Med (Maprotiline Hcl [Maprotiline Hcl]) 25 mg PO Q8 [facility] Last Admin: 12/04/17 16:16 Dose: 25 mg Hydromorphone HCl (Dilaudid) 0.5 mg IVP Q6H PRN PRN Reason: Pain, severe (8-10) Clindamycin Phosphate (Cleocin) 600 mg in 50 mls @ 50 mls/hr IVPB Q8 JASMINE PRN Reason: Protocol Last Admin: 12/04/17 16:15 Dose: 50 mls/hr Ceftaroline Fosamil 400 mg/ (Sodium Chloride) 100 mls @ 100 mls/hr IVPB Q12 JASMINE PRN Reason: Protocol Last Admin: 12/04/17 08:34 Dose: 100 mls/hr Dextrose/Sodium Chloride (Dextrose 5%/0.45% Ns 1000 Ml) 1,000 mls @ 100 mls/hr IV .Q10H [facility] Last Admin: 12/04/17 11:59 Dose: Not Given Levothyroxine Sodium (Synthroid) 88 mcg PO DAILY@0630 [facility] Last Admin: 12/04/17 06:04 Dose: 88 mcg Nicotine (Nicoderm Cq) 1 patch TD DAILY [facility] Last Admin: 12/04/17 11:59 Dose: 1 patch Ondansetron HCl (Zofran Inj) 4 mg IVP Q6H PRN PRN Reason: Nausea/Vomiting - Labs Labs: 12/04/17 06:00 12/04/17 16:34 PT 16.0 Seconds (9.8-13.1) H 11/27/17 04:40 INR 1.4 (0.9-1.2) H 11/27/17 04:40 APTT 31.4 Seconds (25.6-37.1) 11/27/17 04:40 - Constitutional Appears: No Acute Distress - Eye Exam Eye Exam: EOMI - Neck Exam Neck Exam: Full ROM - Respiratory Exam Respiratory Exam: Wheezes - Cardiovascular Exam Cardiovascular Exam: +S1, +S2 - GI/Abdominal Exam GI & Abdominal Exam: Soft, Normal Bowel Sounds. absent: Tenderness - Extremities Exam Extremities Exam: absent: Calf Tenderness - Neurological Exam Neurological Exam: Alert, Awake, Oriented x3 - Psychiatric Exam Psychiatric exam: Normal Affect, Normal Mood Assessment and Plan - Assessment and Plan (Free Text) Plan: 62 y.o. female with Stage IV Colon Cancer admitted for Acute Kidney Injury and Severe Sepsis improving with hypokalemia, generalized weakness, and on NC oxygen Colon Ca stage 4 with metastasis to liver -Dr Wright: recommendations appreciated: CEA: 53.1 R sided infiltrates - CXR portable on 11/30/2017 - consider HCAP - Added Teflaro and Clinda (day 4) per Dr. Crespo - hi flow O2 transitioned to NC 10L: will observe overnight Hypokalemia - Potassium of 2.9 today - kdur 20 - Repeat Chemistry in AM MADDI- Improving -Prerenal secondary to dehydration -BUN/CR 10/0.7 stable today -GFR > 60 Severe Sepsis- Resolved -transfer from ICU to Med surg. -ID: Dr. Crespo: recommendations appreciated: -s/p Vanc/Zosyn (6 days). Continue Flagyl (day7); Added Teflaro and Clinda -blood cx: Final Negative -urine cx: Final negative -MRSA: Final negative -stool cx: Final negative Anemia- Likely due to anemia of chronic disease - 8.5/26.1 stable - Consider I.V. Iron therapy or Blood product transfusion - Heme Oncology Recommendation reviewed and appreciated Hypothyroidism -Levothyroxin 88 mcg PO Anxiety -Pt was on Xanax. 2 mg q daily prn Nutrition: -CLEAN ENERGY POLICY ANALYST eval: finely chopped/thin liquids; tolerating PO meds DVT Prophylaxis Heparin 5000 sc TID Urinary retention: Wilson day 2 DNR/DNI: Confirmed with Ed, -Comfort measures: home hospice
[2017-12-04] MEDS ORDERED: Potassium Chloride 20 mEq 100 ML IVPB SCH (18:00)
[2017-12-05] MEDS: Clindamycin 600mg/50ml D5W 600 MG/50 ML VIAL IVPB SCH ×3 (00:55→17:04)
[2017-12-05] MEDS: [UNRECOGNIZED DRUG - OTHER] PO SCH ×3 (00:59→17:05)
[2017-12-05] MEDS: Levothyroxine 88 MCG TAB PO SCH (06:41)
[2017-12-05] MEDS: Dextrose 5%/0.45% NS 1,000 ML IV SCH ×2 (06:43→08:14)
[2017-12-05 06:46] LABS: MEAN CELL VOLUME 95.2 fl (81.0-99.0); MEAN CORPUSCULAR HEMOGLOBIN 32.5 pg (27.0-31.0); MEAN CORPUSCULAR HGB CONC 34.1 g/dL (33.0-37.0); RBC 2.77 Mil/uL (3.80-5.20); RED CELL DISTRIBUTION WIDTH 17.8 % (11.5-14.5); WHITE BLOOD COUNT 9.6 K/uL (4.8-10.8)
[2017-12-05 07:21] LABS: BLOOD UREA NITROGEN 6 mg/dl (7-17); CALCIUM 6.7 mg/dL (8.4-10.2); GFR AFRICAN-AMERICAN > 60; GFR NON-AFRICAN AMERICAN > 60
[2017-12-05] MEDS ORDERED: Potassium Chloride 20 mEq 100 ML IVPB SCH (09:00)
[2017-12-05] MEDS ORDERED: Potassium Chloride 20 mEq 100 ML IVPB ONE (09:15)
[2017-12-05] MEDS ORDERED: Potassium CL 10 MEQ/50 ML 50 ML IV ONE (11:00)
--- NOTE | 2017-12-05 12:21 | CP.PCM.PN ---
Subjective - Date & Time of Evaluation Date of Evaluation: 12/05/17 Time of Evaluation: 07:00 - Subjective Subjective: Pt seen and examined at bedside. Reports some respiratory discomfort overnight since started on NC 10L. However, currently not under respiratory distress. Denies: CP/N/V. Pt reported increased bilateral lower extremity strength. Objective - Vital Signs/Intake and Output Vital Signs (last 24 hours): Temp Pulse Resp BP Pulse Ox 98.3 F 100 H 21 150/83 95 12/05/17 08:26 12/05/17 08:26 12/05/17 11:00 12/05/17 08:26 12/05/17 08:26 Intake and Output: 12/05/17 12/05/17 06:59 18:59 Intake Total 1300 Output Total 625 Balance 675 - Medications Medications: Current Medications Acetaminophen (Tylenol 325mg Tab) 650 mg PO Q6H PRN PRN Reason: Pain, Mild (1-3) Acetaminophen (Tylenol 325mg Tab) 650 mg PO Q6H PRN PRN Reason: Fever >100.4 F Alprazolam (Xanax) 1 mg PO DAILY [facility] Last Admin: 12/05/17 08:19 Dose: 1 mg Heparin Sodium (Porcine) (Heparin) 5,000 units SC Q8 JASMINE PRN Reason: Protocol Last Admin: 12/05/17 08:14 Dose: 5,000 units Home Med (Maprotiline Hcl [Maprotiline Hcl]) 25 mg PO Q8 [facility] Last Admin: 12/05/17 08:13 Dose: 25 mg Hydromorphone HCl (Dilaudid) 0.5 mg IVP Q6H PRN PRN Reason: Pain, severe (8-10) Clindamycin Phosphate (Cleocin) 600 mg in 50 mls @ 50 mls/hr IVPB Q8 JASMINE PRN Reason: Protocol Last Admin: 12/05/17 08:13 Dose: 50 mls/hr Dextrose/Sodium Chloride (Dextrose 5%/0.45% Ns 1000 Ml) 1,000 mls @ 100 mls/hr IV .Q10H [facility] Last Admin: 12/05/17 08:14 Dose: 100 mls/hr Levothyroxine Sodium (Synthroid) 88 mcg PO DAILY@0630 [facility] Last Admin: 12/05/17 06:41 Dose: 88 mcg Nicotine (Nicoderm Cq) 1 patch TD DAILY JASMINE Last Admin: 12/05/17 08:13 Dose: 1 patch Ondansetron HCl (Zofran Inj) 4 mg IVP Q6H PRN PRN Reason: Nausea/Vomiting - Labs Labs: 12/05/17 06:00 12/05/17 06:00 PT 16.0 Seconds (9.8-13.1) H 11/27/17 04:40 INR 1.4 (0.9-1.2) H 11/27/17 04:40 APTT 31.4 Seconds (25.6-37.1) 11/27/17 04:40 - Constitutional Appears: No Acute Distress - Eye Exam Eye Exam: EOMI - Respiratory Exam Respiratory Exam: Clear to Ausculation Bilateral, Prolonged Expiratory Phase. absent: Wheezes - Cardiovascular Exam Cardiovascular Exam: +S1, +S2 - GI/Abdominal Exam GI & Abdominal Exam: Distended, Normal Bowel Sounds. absent: Tenderness - Extremities Exam Extremities Exam: absent: Calf Tenderness - Neurological Exam Neurological Exam: Alert, Awake - Psychiatric Exam Psychiatric exam: Normal Mood Assessment and Plan - Assessment and Plan (Free Text) Plan: 62 y.o. female with Stage IV Colon Cancer admitted for Acute Kidney Injury and Severe Sepsis improving with hypokalemia, generalized weakness, and on NC oxygen Colon Ca stage 4 with metastasis to liver -Dr Wright: recommendations appreciated: CEA: 53.1 R sided infiltrates - CXR portable on 11/30/2017 - Improved symptoms - consider HCAP - Teflaro and Clinda (day 4) per Dr. Crespo: May add Augmentin 500 mg BID and Clinda 300 mg BID - D/c teflaro for possible hypokalemia; - hi flow O2 transitioned to NC 10L Pt saturating 93 % Hypokalemia - Potassium of 2.8 today - s/p kdur 20; Potassium iv ordered - Repeat Chemistry this evening MADDI- Improving -Prerenal secondary to dehydration -BUN/CR 6/0.6 -GFR > 60 Severe Sepsis- Resolved -ID: Dr. Crespo: recommendations appreciated: -s/p Vanc/Zosyn (6 days). Continue Flagyl (day7); Teflaro and Clinda (3 days) -blood cx: Final Negative -urine cx: Final negative -MRSA: Final negative -stool cx: Final negative Anemia- Likely due to anemia of chronic disease - 9.0/26.4 stable - Heme Oncology Recommendation reviewed and appreciated Hypothyroidism -Levothyroxin 88 mcg PO Anxiety -Pt was on Xanax. 2 mg q daily prn Nutrition: -LEAD BURNER SUPERVISOR eval: finely chopped/thin liquids; tolerating PO meds DVT Prophylaxis Heparin 5000 sc TID Urinary retention: Wilson day 3 DNR/DNI: Confirmed with Ed, -Comfort measures: home hospice
[2017-12-05 15:07] LABS: BLOOD UREA NITROGEN 5 mg/dl (7-17); CALCIUM 6.5 mg/dL (8.4-10.2); GFR AFRICAN-AMERICAN > 60; GFR NON-AFRICAN AMERICAN > 60
[2017-12-05] MEDS: Potassium Chl 20mEq & D5W 1,000 ML IV SCH (17:55)
[2017-12-06] MEDS: [UNRECOGNIZED DRUG - OTHER] PO SCH ×2 (01:49→09:02)
[2017-12-06] MEDS: Clindamycin 600mg/50ml D5W 600 MG/50 ML VIAL IVPB SCH ×2 (01:51→09:00)
[2017-12-06] MEDS: Potassium Chl 20mEq & D5W 1,000 ML IV SCH (02:01)
[2017-12-06] MEDS: Levothyroxine 88 MCG TAB PO SCH (06:36)
[2017-12-06 06:40] LABS: BLOOD UREA NITROGEN 5 mg/dl (7-17); CALCIUM 6.5 mg/dL (8.4-10.2); GFR AFRICAN-AMERICAN > 60; GFR NON-AFRICAN AMERICAN > 60
[2017-12-06] MEDS ORDERED: KCL 40MEQ/NS 1L 1,000 ML IV SCH (08:15)
--- NOTE | 2017-12-06 10:13 | CARD ---
APPROVED REPORT EKG Measurement Heart [id number] <Conclusion> Sinus rhythm with short MS Low voltage QRS Poor R progression V1 to V4 Abnormal ECG
--- NOTE | 2017-12-06 15:11 | RAD ---
PROCEDURE: CHEST RADIOGRAPH, 1 VIEW HISTORY: f/u COMPARISON: None available. FINDINGS: LUNGS: Pulmonary vascular congestion. Bibasilar atelectasis. Slightly improved right upper lobe aeration. PLEURA: Small bilateral pleural effusions, slightly increased. No appreciable pneumothorax. CARDIOVASCULAR: Atherosclerotic aortic calcifications. Cardiomediastinal silhouette within normal limits. OSSEOUS STRUCTURES: No significant abnormalities. VISUALIZED UPPER ABDOMEN: Normal. OTHER FINDINGS: Right internal jugular access chest port, unchanged. IMPRESSION: Slightly improved right upper lobe aeration with persistent infiltrate. Slight increase in small bilateral pleural effusions.
[2017-12-06 15:58] VITALS: BP 151/81; PULSE 101; RESP 20; TEMP 98; O2SAT 98
--- NOTE | 2017-12-06 16:38 | CP.PCM.DIS ---
Provider - Provider Date of Admission: 11/26/17 16:24 Attending physician: Peace Jorge MD Time Spent in preparation of Discharge (in minutes): 20 Diagnosis - Discharge Diagnosis (1) Colon cancer Status: Acute Hospital Course - Lab Results Lab Results: Micro Results 12/02/17 11:30 Nose MRSA Culture (Admit) - Final MRSA NOT DETECTED 11/26/17 14:50 Blood Blood Culture - Final NO GROWTH AFTER 5 DAYS 11/26/17 14:50 Blood Gram Stain - Final TEST NOT PERFORMED 11/26/17 14:30 Blood Blood Culture - Final NO GROWTH AFTER 5 DAYS 11/26/17 14:30 Blood Gram Stain - Final TEST NOT PERFORMED 11/28/17 18:40 Stool Stool Culture - Final NO SALMONELLA, SHIGELLA OR CAMPYLOBACTER ISOLATED. 11/26/17 22:00 Naris MRSA Culture (Admit) - Final MRSA NOT DETECTED 11/26/17 16:38 Urine,Wilson Urine Culture - Final No Growth (<1,000 CFU/ML) Most Recent Lab Values WBC 9.6 K/uL (4.8-10.8) 12/05/17 06:00 RBC 2.77 Mil/uL (3.80-5.20) L 12/05/17 06:00 Hgb 9.0 g/dL (12.0-16.0) L 12/05/17 06:00 Hct 26.4 % (34.0-47.0) L 12/05/17 06:00 MCV 95.2 fl (81.0-99.0) D 12/05/17 06:00 MCH 32.5 pg (27.0-31.0) H 12/05/17 06:00 MCHC 34.1 g/dL (33.0-37.0) 12/05/17 06:00 RDW 17.8 % (11.5-14.5) H 12/05/17 06:00 Plt Count 110 K/uL (130-400) L D 12/05/17 06:00 MPV 10.5 fl (7.2-11.7) 12/03/17 08:30 Neut % (Auto) 85.1 % (50.0-75.0) H 12/03/17 08:30 Lymph % (Auto) 6.3 % (20.0-40.0) L 12/03/17 08:30 [place] % (Auto) 7.9 % (0.0-10.0) 12/03/17 08:30 Eos % (Auto) 0.4 % (0.0-4.0) 12/03/17 08:30 Baso % (Auto) 0.3 % (0.0-2.0) 12/03/17 08:30 Neut # (Auto) 8.3 K/uL (1.8-7.0) H 12/03/17 08:30 Lymph # (Auto) 0.6 K/uL (1.0-4.3) L 12/03/17 08:30 [place] # (Auto) 0.8 K/uL (0.0-0.8) 12/03/17 08:30 Eos # (Auto) 0.0 K/uL (0.0-0.7) 12/03/17 08:30 Baso # (Auto) 0.0 K/uL (0.0-0.2) 12/03/17 08:30 Neutrophils % (Manual) 81 % (42-75) H 12/03/17 08:30 Band Neutrophils % 11 % (0-2) H* 11/26/17 15:00 Lymphocytes % (Manual) 8 % (20-50) L 12/03/17 08:30 Reactive Lymphs % 1 % (0-0) H 11/26/17 15:00 Monocytes % (Manual) 8 % (0-10) 12/03/17 08:30 Metamyelocytes % 1 % (0-0) H 12/03/17 08:30 Myelocytes % 2 % (0-0) H 12/03/17 08:30 Toxic Granulation Present 12/03/17 08:30 Platelet Estimate Decreased (NORMAL) L 12/03/17 08:30 Hypochromasia (manual) Slight 12/03/17 08:30 Anisocytosis (manual) Slight 12/03/17 08:30 Ovalocytes Slight 12/03/17 08:30 PT 16.0 Seconds (9.8-13.1) H 11/27/17 04:40 INR 1.4 (0.9-1.2) H 11/27/17 04:40 APTT 31.4 Seconds (25.6-37.1) 11/27/17 04:40 pCO2 51 mm/Hg (35-45) H 11/29/17 10:00 pO2 64 mm/Hg (80-100) L 11/29/17 10:00 HCO3 25.4 mmol/L (21-28) 11/29/17 10:00 ABG pH 7.33 (7.35-7.45) L 11/29/17 10:00 ABG Total CO2 28.5 mmol/L (22-28) H 11/29/17 10:00 ABG O2 Saturation 95.3 % (95-98) 11/29/17 10:00 ABG O2 Content 12.1 ML/dL (15-23) L 11/29/17 10:00 ABG Base Excess 0.6 mmol/L (-2.0-3.0) 11/29/17 10:00 ABG Hemoglobin 9.1 g/dL (11.7-17.4) L 11/29/17 10:00 ABG Carboxyhemoglobin 0.8 % (0.5-1.5) 11/29/17 10:00 POC ABG HHb (Measured) 4.6 % (0.0-5.0) 11/29/17 10:00 ABG Methemoglobin 0.6 % (0.0-3.0) 11/29/17 10:00 ABG O2 Capacity 12.7 mL/dL (16-24) L 11/29/17 10:00 Josue Test Yes 11/29/17 10:00 VBG pH 7.36 (7.32-7.43) 11/26/17 18:28 VBG pCO2 48 mmHg (40-60) 11/26/17 18:28 VBG HCO3 25.6 mmol/L 11/26/17 18:28 VBG Total CO2 28.6 mmol/L (22-28) H 11/26/17 18:28 VBG O2 Sat (Calc) 97.3 % (40-65) H 11/26/17 18:28 VBG Base Excess 1.0 mmol/L (0.0-2.0) 11/26/17 18:28 VBG Potassium 2.3 mmol/L (3.6-5.2) L* 11/26/17 18:28 A-a O2 Difference 585.0 mm/Hg 11/29/17 10:00 Hgb O2 Saturation 94.0 % (95.0-98.0) L 11/29/17 10:00 Sodium 135.0 mmol/L (132-148) 11/26/17 18:28 Chloride 98.0 mmol/L (98-107) 11/26/17 18:28 Glucose 130 mg/dL (65-105) H 11/26/17 18:28 Lactate 1.2 mmol/L (0.7-2.1) 11/26/17 18:28 Liter Flow 25 11/29/17 10:00 Vent Mode Hfnc 11/29/17 10:00 FiO2 100.0 % 11/29/17 10:00 Crit Value Called To Pina contreras md 11/26/17 18:28 Crit Value Called By [id number] 11/26/17 18:28 Crit Value Read Back Y 11/26/17 18:28 Blood Gas Notified Time 18311/26/17 18:28 Sodium 136 mmol/l (132-148) 12/06/17 05:40 Potassium 2.9 MMOL/L (3.6-5.0) L 12/06/17 05:40 Chloride 96 mmol/L (98-107) L 12/06/17 05:40 Carbon Dioxide 32 mmol/L (22-30) H 12/06/17 05:40 Anion Gap 11 (10-20) 12/06/17 05:40 BUN 5 mg/dl (7-17) L 12/06/17 05:40 Creatinine 0.7 mg/dl (0.7-1.2) 12/06/17 05:40 Est GFR ( Amer) > 60 12/06/17 05:40 Est GFR (Non-Af Amer) > 60 12/06/17 05:40 POC Glucose (mg/dL) 118 mg/dL (65-110) H 11/26/17 14:21 Random Glucose 115 mg/dL (65-105) H 12/06/17 05:40 Calcium 6.5 mg/dL (8.4-10.2) L 12/06/17 05:40 Phosphorus 3.9 mg/dl (2.5-4.5) 11/27/17 04:40 Magnesium 1.4 MG/DL (1.6-2.3) L 11/27/17 04:40 Total Bilirubin 0.4 mg/dl (0.2-1.3) 12/03/17 08:30 AST 18 U/L (14-36) 12/03/17 08:30 ALT 34 U/L (9-52) 12/03/17 08:30 Alkaline Phosphatase 123 U/L (38-126) 12/03/17 08:30 Total Protein 4.8 G/DL (6.3-8.2) L 12/03/17 08:30 Albumin 2.3 g/dL (3.5-5.0) L 12/03/17 08:30 Globulin 2.5 gm/dL (2.2-3.9) 12/03/17 08:30 Albumin/Globulin Ratio 0.9 (1.0-2.1) L 12/03/17 08:30 Carcinoembryonic Ag 53.1 ng/mL (0-3.0) H 11/28/17 04:20 Thyroxine (T4) < 0.405 ug/dl (5.5-11.0) L 11/28/17 04:20 Total T3 0.170 nmol/L (1.49-2.60) L 11/28/17 04:20 TSH 3rd Generation 41.40 mIU/ML (0.46-4.68) H 12/01/17 05:20 Venous Blood Potassium 2.3 mmol/L (3.6-5.2) L* 11/26/17 18:28 Urine Color Michelle (YELLOW) 11/26/17 16:38 Urine Clarity Cloudy (Clear) 11/26/17 16:38 Urine pH 5.0 (5.0-8.0) 11/26/17 16:38 Ur Specific [place] 1.021 (1.003-1.030) 11/26/17 16:38 Urine Protein 100 mg/dL (NEGATIVE) 11/26/17 16:38 Urine Glucose (UA) Neg mg/dL (Normal) 11/26/17 16:38 Urine Ketones Negative mg/dL (NEGATIVE) 11/26/17 16:38 Urine Blood Negative (NEGATIVE) 11/26/17 16:38 Urine Nitrate Negative (NEGATIVE) 11/26/17 16:38 Urine Bilirubin Small (NEGATIVE) 11/26/17 16:38 Urine Urobilinogen 4.0 mg/dL (0.2-1.0) H 11/26/17 16:38 Ur Leukocyte Esterase Neg Lien/uL (Negative) 11/26/17 16:38 Urine RBC (Auto) 2 /hpf (0-3) 11/26/17 16:38 Urine Microscopic WBC 6 /hpf (0-5) H 11/26/17 16:38 Ur Squamous Epith Cells 2 /hpf (0-5) 11/26/17 16:38 Urine Bacteria Rare (<OCC) 11/26/17 16:38 Hyaline Casts >20 /hpf (0-2) H 11/26/17 16:38 Granular Casts (Auto) 6 /lpf (0-1) 11/26/17 16:38 Ur Random Sodium 9 meq/L 11/27/17 23:13 Ur Random Potassium 26.0 mmol/L 11/27/17 23:13 Vancomycin Trough 17.3 ug/mL (5.0-10.0) H 11/29/17 21:30 - Hospital Course Hospital Course: 62 y.o. female with Stage IV Colon Cancer, anemia of chronic disease admitted for Acute Kidney Injury and Severe Sepsis improving hypokalemia, generalized weakness, and on NC oxygen. Liu culture negative. PNA: Pt had R sided infiltrates that are improving. S/P: Vanc/Zosyn with Flagyl switched to Teflaro and clinda and ultimately d/c on Augmentin 500 mg BID and Clinda 300 mg BID. Pt was on high flow oxygen and transitioned to NC 10L humidified. Hypokalemia: pt d/c home on k-dur 40 meq q daily x 14. Pt benefitting with PT Discharge Exam - Head Exam Head Exam: ATRAUMATIC - Eye Exam Eye Exam: EOMI - Respiratory Exam Respiratory Exam: Clear to PA & Lateral. absent: Wheezes - Cardiovascular Exam Cardiovascular Exam: +S1, +S2 - GI/Abdominal Exam GI & Abdominal Exam: Normal Bowel Sounds, Soft. absent: Tenderness - Neurological Exam Neurological exam: Alert, Oriented x3 - Psychiatric Exam Psychiatric exam: Normal Mood Discharge Plan - Discharge Medications Prescriptions: Amoxicillin/Clavulanate [Augmentin 500 MG-125 MG] 1 tab PO BID #14 tab Clindamycin [Cleocin] 300 mg PO BID #14 cap Levothyroxine [Synthroid] 88 mcg PO DAILY@0630 #30 tab Maprotiline HCl 25 mg PO Q8 #90 tablet Nicotine 21 mg/24 hr [Nicoderm Cq] 1 patch TD DAILY #7 patch Potassium Chloride [K-Dur 20] 40 meq PO DAILY #14 tab - Follow Up Plan Condition: STABLE Disposition: HOME/ ROUTINE Instructions: Oxygen Therapy, Adult, Dehydration, Adult (DC), Kidney Failure ( DC), How to Care for Your Wilson Catheter, Female, Sepsis, Adult (DC), Palliative Care Additional Instructions: [facility] oxygen 10 liters via nasal cannula Referrals: Luis Wright MD [Staff Provider] - Connor Crespo MD [Medical Doctor] -
== END 2017-12-06 17:15 | disposition hospice, home (50) | DRG 584 ==
LOC: H.ER 14:05 → H.ERHOLD 16:24 → H.ICU/CCU 21:14 → H.MEDSURG1 12-02 17:41
PROVIDERS: ADMIT Family Medicine Geriatric Medicine; ATTEND Family Medicine Geriatric Medicine
DX: A41.9 Sepsis, unspecified organism (principal); N17.9 Acute kidney failure, unspecified; R65.21 Severe sepsis with septic shock; C78.7 Secondary malignant neoplasm of liver and intrahepatic bile duct; C18.9 Malignant neoplasm of colon, unspecified; E87.6 Hypokalemia; K52.1 Toxic gastroenteritis and colitis; E87.0 Hyperosmolality and hypernatremia; J43.9 Emphysema, unspecified; D63.0 Anemia in neoplastic disease; D64.81 Anemia due to antineoplastic chemotherapy; E86.0 Dehydration; E03.9 Hypothyroidism, unspecified; T45.1X5A Adverse effect of antineoplastic and immunosuppressive drugs, initial encounter; F41.9 Anxiety disorder, unspecified; F17.210 Nicotine dependence, cigarettes, uncomplicated; Z66 Do not resuscitate; Z88.2 Allergy status to sulfonamides; Z90.710 Acquired absence of both cervix and uterus